=== PATIENT | female | born 1960 | race Caucasian/White ===

== ENCOUNTER 2016-09-20 10:04 | Observation (INO) ==
--- NOTE | 2016-09-20 10:31 | Emergency Department Note ---
Disposition Clinical Impression: Hyperglycemia Leukocytosis Qualifiers: Leukocytosis type: unspecified Qualified Code(s): D72.829 - Elevated white blood cell count, unspecified UTI (urinary tract infection) Qualifiers: Urinary tract infection type: site unspecified Hematuria presence: without hematuria Qualified Code(s): N39.0 - Urinary tract infection, site not specified Disposition: Admitted As Inpatient Condition: Fair Time of Disposition: 13:00 General Adult HPI - General Chief complaint: ED Extremity Problem,Nontraumatic Stated complaint: cellulitis Time Seen by Provider: 09/20/16 10:08 Source: patient, EMS Limitations: no limitations Nursing Notes Reviewed: Yes Vital Signs Reviewed: Yes - History of Present Illness HPI Narrative: 56-year-old female ordered obesity, insulin-dependent diabetes, with several days of emesis, nausea, and generalized weakness. Patient also states that she think she has cellulitis in her bilateral lower extremities. She was recently prescribed a cream for her legs for her cellulitis unsure what kind. No oral medicaitons. Patient with no known hx of DKA. Poorly controlled diabetesBSGs in the 300s-400s this last weak, also feels dehydrated. The patient also with crampy nonspecific abdominal pain /, diffuse. Denies hematuria, dysuria, hematemesis, hematochezia wt change or fever. Onset (ago): day(s) Location: abdomen Radiation: abdomen Pain Severity: moderate Pain Scale: 8 Quality: stabbing, aching Improves with: nothing Worsens with: nothing Associated symptoms: Reports: denies other symptoms. Denies: confusion, chest pain Treatments Prior to Arrival: none - Related Data Home Medications Medication Instructions Recorded Confirmed Carvedilol [Coreg] 12.5 mg PO BID 10/31/15 06/06/16 Cholecalciferol (Vitamin D3) 50,000 unit PO TU 10/31/15 06/06/16 [Vitamin D3] FLUoxetine HCl [Prozac] 40 mg PO DAILY 10/31/15 06/06/16 Furosemide [Lasix] 10 mg PO DAILY 10/31/15 06/06/16 Insulin ASPART [NovoLOG] 0 units SQ TIDWM MDD Sliding Scale 10/31/15 06/06/16 Insulin Glargine,Hum.rec.anlog 40 unit SQ QAM AND QHS #0 10/31/15 06/06/16 [Lantus Solostar] Lamotrigine [Lamictal] 75 mg PO BID 10/31/15 06/06/16 Losartan Potassium [Cozaar] 100 mg PO DAILY 10/31/15 06/06/16 Lovastatin [Altoprev] 40 mg PO DAILY 10/31/15 06/06/16 Omeprazole 20 mg PO DAILY 10/31/15 06/06/16 Triamterene/HCTZ 37.5/25mg 1 each PO DAILY #0 10/31/15 06/06/16 [Dyazide] Albuterol Sulfate [Proair Hfa] 2 puff IH Q4H PRN 06/06/16 06/06/16 Aspirin 81 mg PO DAILY 06/06/16 06/06/16 Duloxetine [Cymbalta] 30 mg PO DAILY 06/06/16 06/06/16 Gabapentin [Neurontin] 300 mg PO TID 06/06/16 06/06/16 Meclizine [Antivert] 12.5 - 25 mg PO DAILY PRN 06/06/16 06/06/16 Meloxicam [Mobic] 7.5 mg PO DAILY 06/06/16 06/06/16 Promethazine [Phenergan] 25 mg PO Q6H PRN 06/06/16 06/06/16 Previous Rx's Medication Instructions Recorded Ferrous Sulfate 325 mg PO DAILY@0800 #60 tablet 11/07/15 Bacitracin OINT [Ak-Tracin] 1 appl TP BID #1 tube 06/09/16 CefTRIAXone [Rocephin] 1,000 mg IVPB DAILY #10 vial 06/09/16 Clotrimazole 1% CRM [Lotrimin 1%] 1 appl TP BID #1 tube 06/09/16 OxyCODONE Immed Rel [Roxicodone 5 5 mg PO Q6H PRN #25 tablet 06/09/16 MG] Allergies Allergy/AdvReac Type Severity Reaction Status Date / Time Penicillins Allergy Hives Verified 09/20/16 12:06 All systems ED: reviewed and negative except as stated. Constitutional: Reports: as per HPI, chills, weakness. Denies: fever Cardiovascular: Denies: chest pain, palpitations Respiratory: Denies: cough, dyspnea Gastrointestinal: Reports: as per HPI, abdominal pain, nausea, vomiting. Denies : diarrhea, hematemesis, melena, hematochezia Genitourinary: Denies: urgency, dysuria Musculoskeletal: Denies: back pain, neck pain Neurological: Reports: as per HPI, weakness. Denies: headache Endocrine: Reports: as per HPI, fatigue, polydipsia, polyuria Past Medical History - Past Medical History Attestation: Yes The following information was validated with the patient. Source: patient Medical history: Reports: asthma, diabetes, hyperlipidemia, hypertension, renal disease Psychiatric history: Reports: anxiety - Social History Smoking Status: Current every day smoker Smokeless Tobacco Status: No Alcohol use: Reports: none Drug use: Reports: none Physical Exam Constitutional: apperas mildly uncomfortable, vital signs reviewed and wnl HEENT: NCAT, sclera anicteric, PERRLA bilaterally, normal external ears bilaterally, nasal septum nondeviated, average dentition, mucous membranes dry Neck: normal inspection, neck is supple, trachea midline Resp: normal chest inspection, CTA bilaterally, no resp distress CV: RRR, no m/g/r,+2 nonpitting edema bilateral lower extremity is GI: morbidly obese, diffuse mild ttp, Soft, BS present Back: normal inspection, no tenderness to palpation Neuro: A&O3, no gross motor or sensory deficits bilaterally MSK: normal inspection, bilateral UE and LE with normal ROM Psych: normal mood, normal affect Skin: edema bilateral lower extremities, edema with some skin breakdown nonpurulent drainage, serous drainage from her bilateral anterior tibia, no evidence of erythema - General Limitations: no limitations General appearance: alert, in no apparent distress Course Course Narrative: 56 female with weakness nausea and vomiting, on examination of her legs, there appears to be venous stasis dermatitis and no evidence of cellulitis, we will give blood work with cultures lactate, beta hydroxy generic acid, VBG given that she is at high risk for DKA, her blood sugar Accu-Chek was 406 Aleve or IV fluids and insulin, his - Reevaluation(s) Reevaluation #1: Admitted to Dr Arteaga, for hyperglycemia, UTI, started empirically on cefepime after looking at sensitivities in previous UTIs. Time: 12:58 Vital Signs Temperature 98.6 F 09/20/16 10:06 Pulse Rate 67 09/20/16 10:06 Respiratory Rate 20 09/20/16 10:06 Blood Pressure 139/68 09/20/16 10:06 O2 Sat by Pulse Oximetry 96 09/20/16 10:06 Temperature 98.6 F 09/20/16 10:06 Pulse Rate 65 09/20/16 11:43 Respiratory Rate 18 09/20/16 11:43 Blood Pressure 115/57 09/20/16 11:43 O2 Sat by Pulse Oximetry 97 09/20/16 11:43 Oxygen Delivery Oxygen Delivery Room Air Medical Decision Making - MDM Narrative Medical decision making narrative: 86-year-old female with hyperglycemia, UTI, generalized weakness, admitted to medicine service in stable condition, no evidence of SIRS criteria at this time she does not meet criteria for sepsis we will fluid rehydrate, started empirically on IV antibiotics cefepime. In stable condition at time of ED disposition - Medical Records Medical records reviewed: Yes I reviewed the patient's medical records. - Lab Data Lab results reviewed: Yes I reviewed the patient's lab results. Result diagrams: 09/20/16 10:32 09/20/16 10:32 Lab Results 09/20/16 09/20/16 09/20/16 Range/Units 10:18 10:32 10:32 WBC 13.3 H (4.3-11.1) K/mcL RBC 5.17 H (3.82-4.97) M/mcL Hgb 12.0 (11.5-15.4) g/dL Hct 38.1 (35.3-44.9) % MCV 73.7 L (83.0-100.0) fL MCH 23.2 L (28.0-33.3) pg MCHC 31.5 L (31.6-35.5) g/dL RDW 13.8 (11.5-14.5) % Plt Count 315 (140-400) K/mcL MPV 8.4 L (9.4-12.4) fL Immature Gran % 0.7 (0-4) % Seg Neutrophils % 66.6 % Lymphocytes % 21.7 % Monocytes % 7.2 % Eosinophils % 3.2 % Basophils % 0.6 % Neutrophils # 8.8 (1.6-8.9) K/mcL Lymphocytes # 2.9 (0.6-4.6) K/mcL Monocytes # 1.0 (0.0-1.3) K/mcL Eosinophils # 0.4 (0.0-0.6) K/mcL Basophils # 0.1 (0.0-0.2) K/mcL VBG pH (7.32-7.42) pH Units VBG pCO2 (41-51) mmHg VBG pO2 (25-40) mmHg VBG HCO3 (21-27) mEq/L Sodium 133 L (136-145) mEq/L Potassium 4.2 (3.5-4.5) mEq/L Chloride 98 (98-109) mEq/L Carbon Dioxide 23 (19-29) mEq/L BUN 18 (7-20) mg/dL Creatinine 1.42 H (0.57-1.11) mg/dL Est GFR ( Amer) 47 L (> 60) Est GFR (Non-Af Amer) 39 L (> 60) BUN/Creatinine Ratio 13 (6-26) Glucose 355 H (70-99) mg/dL POC Glucose 406 H* (58-89) Calculated Osmolality 292 (280-300) Lactic Acid (0.5-2.2) mmol/L Calcium 8.3 L (8.6-10.8) mg/dL Total Bilirubin 0.7 (0.2-1.2) mg/dL AST 13 (5-34) Units/L ALT 18 (0-55) Units/L Alkaline Phosphatase 107 (38-126) Units/L Troponin I (0-0.03) ng/mL Serum Total Protein 7.2 (6.0-8.3) g/dL Albumin 2.6 L (3.5-5.0) g/dL Globulin 4.6 H (2.4-3.5) g/dL Albumin/Globulin Ratio 0.6 L (1.1-2.2) Lipase (8-78) Units/L Beta-Hydroxybutyric Acd (0.02-0.27) mmol/L Urine Color (Yellow) Urine Clarity (Clear) Urine pH (5.0-8.0) pH Units Ur Specific [place] (1.010-1.025) Urine Protein (Neg-Trace) mg/dL Urine Glucose (UA) (Normal) mg/dL Urine Ketones (Negative) mg/dL Urine Blood (Negative) Urine Nitrite (Negative) Urine Bilirubin (Negative) Urine Urobilinogen (Normal) mg/dL Ur Leukocyte Esterase (Negative) Urine Microscopic RBC (0-3) per hpf Urine Microscopic WBC (0-3) per hpf Ur Squamous Epith Cells (None-Few) per lpf Urine Bacteria (None-Few) per hpf Hyaline Casts (None-Few) per lpf Ur Culture Indicated? (NO) 09/20/16 09/20/16 09/20/16 Range/Units 10:32 10:32 10:32 WBC (4.3-11.1) K/mcL RBC (3.82-4.97) M/mcL Hgb (11.5-15.4) g/dL Hct (35.3-44.9) % MCV (83.0-100.0) fL MCH (28.0-33.3) pg MCHC (31.6-35.5) g/dL RDW (11.5-14.5) % Plt Count (140-400) K/mcL MPV (9.4-12.4) fL Immature Gran % (0-4) % Seg Neutrophils % % Lymphocytes % % Monocytes % % Eosinophils % % Basophils % % Neutrophils # (1.6-8.9) K/mcL Lymphocytes # (0.6-4.6) K/mcL Monocytes # (0.0-1.3) K/mcL Eosinophils # (0.0-0.6) K/mcL Basophils # (0.0-0.2) K/mcL VBG pH 7.30 L (7.32-7.42) pH Units VBG pCO2 54 H (41-51) mmHg VBG pO2 26 (25-40) mmHg VBG HCO3 26.6 (21-27) mEq/L Sodium (136-145) mEq/L Potassium (3.5-4.5) mEq/L Chloride (98-109) mEq/L Carbon Dioxide (19-29) mEq/L BUN (7-20) mg/dL Creatinine (0.57-1.11) mg/dL Est GFR ( Amer) (> 60) Est GFR (Non-Af Amer) (> 60) BUN/Creatinine Ratio (6-26) Glucose (70-99) mg/dL POC Glucose (58-89) Calculated Osmolality (280-300) Lactic Acid 2.4 H (0.5-2.2) mmol/L Calcium (8.6-10.8) mg/dL Total Bilirubin (0.2-1.2) mg/dL AST (5-34) Units/L ALT (0-55) Units/L Alkaline Phosphatase (38-126) Units/L Troponin I 0.00 (0-0.03) ng/mL Serum Total Protein (6.0-8.3) g/dL Albumin (3.5-5.0) g/dL Globulin (2.4-3.5) g/dL Albumin/Globulin Ratio (1.1-2.2) Lipase (8-78) Units/L Beta-Hydroxybutyric Acd (0.02-0.27) mmol/L Urine Color (Yellow) Urine Clarity (Clear) Urine pH (5.0-8.0) pH Units Ur Specific [place] (1.010-1.025) Urine Protein (Neg-Trace) mg/dL Urine Glucose (UA) (Normal) mg/dL Urine Ketones (Negative) mg/dL Urine Blood (Negative) Urine Nitrite (Negative) Urine Bilirubin (Negative) Urine Urobilinogen (Normal) mg/dL Ur Leukocyte Esterase (Negative) Urine Microscopic RBC (0-3) per hpf Urine Microscopic WBC (0-3) per hpf Ur Squamous Epith Cells (None-Few) per lpf Urine Bacteria (None-Few) per hpf Hyaline Casts (None-Few) per lpf Ur Culture Indicated? (NO) 09/20/16 09/20/16 Range/Units 10:32 11:20 WBC (4.3-11.1) K/mcL RBC (3.82-4.97) M/mcL Hgb (11.5-15.4) g/dL Hct (35.3-44.9) % MCV (83.0-100.0) fL MCH (28.0-33.3) pg MCHC (31.6-35.5) g/dL RDW (11.5-14.5) % Plt Count (140-400) K/mcL MPV (9.4-12.4) fL Immature Gran % (0-4) % Seg Neutrophils % % Lymphocytes % % Monocytes % % Eosinophils % % Basophils % % Neutrophils # (1.6-8.9) K/mcL Lymphocytes # (0.6-4.6) K/mcL Monocytes # (0.0-1.3) K/mcL Eosinophils # (0.0-0.6) K/mcL Basophils # (0.0-0.2) K/mcL VBG pH (7.32-7.42) pH Units VBG pCO2 (41-51) mmHg VBG pO2 (25-40) mmHg VBG HCO3 (21-27) mEq/L Sodium (136-145) mEq/L Potassium (3.5-4.5) mEq/L Chloride (98-109) mEq/L Carbon Dioxide (19-29) mEq/L BUN (7-20) mg/dL Creatinine (0.57-1.11) mg/dL Est GFR ( Amer) (> 60) Est GFR (Non-Af Amer) (> 60) BUN/Creatinine Ratio (6-26) Glucose (70-99) mg/dL POC Glucose (58-89) Calculated Osmolality (280-300) Lactic Acid (0.5-2.2) mmol/L Calcium (8.6-10.8) mg/dL Total Bilirubin (0.2-1.2) mg/dL AST (5-34) Units/L ALT (0-55) Units/L Alkaline Phosphatase (38-126) Units/L Troponin I (0-0.03) ng/mL Serum Total Protein (6.0-8.3) g/dL Albumin (3.5-5.0) g/dL Globulin (2.4-3.5) g/dL Albumin/Globulin Ratio (1.1-2.2) Lipase 23 (8-78) Units/L Beta-Hydroxybutyric Acd 0.17 (0.02-0.27) mmol/L Urine Color Yellow (Yellow) Urine Clarity Turbid A (Clear) Urine pH 6.0 (5.0-8.0) pH Units Ur Specific [place] 1.013 (1.010-1.025) Urine Protein Trace (Neg-Trace) mg/dL Urine Glucose (UA) 100 H (Normal) mg/dL Urine Ketones Negative (Negative) mg/dL Urine Blood Small H (Negative) Urine Nitrite Positive A (Negative) Urine Bilirubin Negative (Negative) Urine Urobilinogen Normal (Normal) mg/dL Ur Leukocyte Esterase Large H (Negative) Urine Microscopic RBC 3-5 H (0-3) per hpf Urine Microscopic WBC TNTC H (0-3) per hpf Ur Squamous Epith Cells Many H (None-Few) per lpf Urine Bacteria Many H (None-Few) per hpf Hyaline Casts None Seen (None-Few) per lpf Ur Culture Indicated? YES A (NO) - Radiology Data Radiology results reviewed: Yes I reviewed the patient's radiology results. Chest X-Ray 09/20/16 10:13 IMPRESSION: No acute abnormality D/ / Breezy Trotter MD / Breezy Trotter MD Interpreting Provider: Breezy Trotter MD - EKG Data EKG #1 EKG attestation: Yes I reviewed and interpreted this EKG. EKG shows normal: sinus rhythm Rate: normal (67 bpm AL 173 QRS 90 QTc 447) Rhythm: NSR [place]/QRS: normal When compared to previous EKG there are: no significant changes (Normal sinus rhythm artifact appears to be due to patient movement similar to previous EKG ) Interpretation: no acute changes, unchanged when compared to prior tracing (date )
[2016-09-20] MEDS ORDERED: Insulin Human Regular 10 UNIT in 0.9 % Sodium Chloride 10 ML IV ONE (10:32)
[2016-09-20 10:41] LABS: Basophils # 0.1 K/mcL (0.0-0.2); Basophils % 0.6 %; Eosinophils # 0.4 K/mcL (0.0-0.6); Eosinophils % 3.2 %; Hematocrit 38.1 % (35.3-44.9); Immature Granulocytes % 0.7 % (0-4); Lymphocytes # 2.9 K/mcL (0.6-4.6); Lymphocytes % 21.7 %; Mean Corpuscular HGB Conc 31.5 g/dL (31.6-35.5); Mean Corpuscular Hemoglobin 23.2 pg (28.0-33.3); Mean Corpuscular Volume 73.7 fL (83.0-100.0); Mean Platelet Volume 8.4 fL (9.4-12.4); Monocytes % 7.2 %; Neutrophils # 8.8 K/mcL (1.6-8.9); Platelet Count 315 K/mcL (140-400); Red Blood Count 5.17 M/mcL (3.82-4.97); Red Cell Distribution Width 13.8 % (11.5-14.5); Segmented Neutrophils % 66.6 %
[2016-09-20 10:42] LABS: VBG HCO3 26.6 mEq/L (21-27); VBG PH 7.3 pH Units (7.32-7.42)
[2016-09-20] MEDS: 0.9 % Sodium Chloride 1,000 ML IVC SCH ×6 (10:44→11:42)
[2016-09-20 10:52] LABS: Beta-Hydroxybutyric Acid 0.17 mmol/L (0.02-0.27)
[2016-09-20 10:55] LABS: Albumin 2.6 g/dL (3.5-5.0); Albumin/Globulin Ratio 0.6 (1.1-2.2); Bilirubin,Total 0.7 mg/dL (0.2-1.2); Calcium 8.3 mg/dL (8.6-10.8); Globulin 4.6 g/dL (2.4-3.5); Potassium 4.2 mEq/L (3.5-4.5); Total Protein 7.2 g/dL (6.0-8.3)
--- NOTE | 2016-09-20 11:00 | Emergency Department Note ---
START Narrative - START START: I examined this patient and my medical decision-making was reviewed with the [employer] OFFBEARER/PA/Advanced Practice Nurse/Resident Physician. I agree with the documented findings, disposition and treatment plan as described except to the extent set forth below. ED attending note: Patient seen with emergency medicine resident Dr. Khalil. Please see a copy of his note for details of the H&P, evaluation, management and disposition of this patient. We independently had [id number] contact with the patient Briefly: A 56-year-old female diabetic obese treated with skin cream for "cellulitis" for several days. Social respiratory control. Feeling more tired. Patient's Accu-Cheks between 305 100. Physical examination shows peripheral edema but no signs of acute cellulitis. Labs and imaging a pending. Patient stable. Disposition pending.
[2016-09-20] MEDS ORDERED: Nystatin POWDER 30 GM BOTTLE TP STA (11:05)
[2016-09-20 11:35] LABS: Bilirubin,Urine Negative (Negative); Blood,Urine Small (Negative); Clarity,Urine Turbid (Clear); Color,Urine Yellow (Yellow); Glucose,Urine (UA) 100 mg/dL (Normal); Ketones,Urine Negative (Negative); Leukocyte Esterase,Urine Large (Negative); Nitrite,Urine Positive (Negative); Protein,Urine Trace mg/dL (Neg-Trace); Specific Gravity,Urine 1.013 (1.010-1.025); Urobilinogen,Urine Normal (Normal)
[2016-09-20] MEDS ORDERED: Fluconazole 100 MG TABLET PO ONE (11:35)
[2016-09-20 11:38] LABS: Bacteria,Urine Many per hpf (None-Few); Hyaline Casts,Urine None Seen per lpf (None-Few); Squamous Epithelial Cell,Urine Many per lpf (None-Few); WBC,Urine TNTC per hpf (0-3)
[2016-09-20] MEDS ORDERED: Cefepime HCl 2,000 MG in D5% in Water (Mini-Bag+) 100 ML IVPB ONE (12:38)
[2016-09-20] MEDS ORDERED: *HR* Dextrose 50 % in Water (Syg) 50 ML SYRINGE IVP PRN (17:51)
[2016-09-20] MEDS ORDERED: D5% in Water 1,000 ML IV PRN (17:51)
[2016-09-20] MEDS ORDERED: Dextrose Gel 15 GM PO PRN ×2 (17:51)
[2016-09-20] MEDS ORDERED: Insulin LISPRO 300 UNITS/3 ML VIAL SQ SCH ×2 (18:00)
[2016-09-20] MEDS ORDERED: hydrOXYzine pamoate 25 MG CAPSULE PO PRN (18:38)
[2016-09-20] MEDS ORDERED: 0.9 % Sodium Chloride 1,000 ML IVC SCH (18:45)
[2016-09-20] MEDS ORDERED: Naloxone 0.4 MG/ML INJ IVP PRN (18:46)
[2016-09-20 19:11] LABS: Calcium 7.8 mg/dL (8.6-10.8); Potassium 3.6 mEq/L (3.5-4.5)
--- NOTE | 2016-09-20 19:26 | Internal Med History&Physical ---
Date of Encounter: 09/20/16 Time of Encounter: 19:06 Assessment and Plan (1) UTI (urinary tract infection) Current visit: Yes Status: Acute Though patient denies any dysuria, UA was positive for UTI. Previous urine cultures showed sensitivity to Cefepime. Cefepime 2g IVPB BID Await culture results Qualifiers: Urinary tract infection type: site unspecified Hematuria presence: without hematuria Qualified Code(s): N39.0 - Urinary tract infection, site not specified (2) Candidal dermatitis Current visit: No Status: Acute Patient with significant erythema and tenderness under panus and in groin, consistent with fungal infection. Fluconazole 100mg IVPB daily topical clotrimizole BID consult wound team (3) Hyperglycemia Current visit: Yes Status: Acute Patient reporting blood sugars have been running high at home in the 300-400s. On presentation here, serum glucose 355. Basal dose of insulin 30u levemir HS Check blood sugars Q4hr Sliding scale correction dose Q4hr (4) Chronic kidney disease, stage 3 Current visit: No Status: Chronic Patient's kidney function is near baseline with BUN/Cr 18/1.42. Pushing fluids with 0.9NS at 100mL/hr Recheck chemistry in the morning. (5) Diabetes mellitus Current visit: No Status: Chronic Not well controlled as evidenced by Hgb A1c of 8.3% in May. Home dose of insulin: Basal 48u HS, 18u short acting TIDwM She is hyperglycemic. Will check blood sugars Q4hr and give sliding scale correction Q4hr. Will give basal dose of 30u this evening. May convert to home dose when blood sugars stabilize. hypoglycemic protocol. 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 Brothers is a 56 year old female with hypertension, hyperlipidemia, type 2 diabetes, chronic kidney disease, asthma presented to the emergency department today with complaints of her lower extremities hurting. She said she was diagnosed with fungal infection of her legs and she is concerned about cellulitis. She has chronic bilateral lower extremity edema. She also reports she has been having trouble keeping her blood sugars under control, they have been running in the 300 400 range. She denies any fever, chills, sweats, dysuria. She denies any chest pain, palpitation, shortness of breath. Evaluation in the emergency department was significant for elevated white blood cell count of 13.3, UA which was positive for UTI, elevated lactic acid of 2.4. Troponin was negative at 0.0, chest x-ray showed no acute abnormality. On exam, patient is morbidly obese, alert and oriented, in no acute distress. Heart has regular rate and rhythm with systolic murmur. Clear bilaterally to auscultation. Her bilateral lower extremities were swollen, and pink, but not acutely tender, did not appear to be cellulitis. The folds under her panus and in her groin are erythmatous and tender consistent with fungal infection. Past Med Surg Social Fam HX - Past Medical History Medical history: asthma, diabetes, hyperlipidemia, hypertension, renal disease Psychiatric history: anxiety - Past Surgical History Surgical History: , cholecystectomy, hysterectomy - Social History Smoking Status: Current every day smoker (1/2 PPD) Smokeless Tobacco Status: No Alcohol use: none Drug use: none - Family History Father Living Status: Still Living Hx Family Cardiac Disorders: Yes (dad had [place]) Hx Family Respiratory Disorders: No Hx Family Cancer: No Hx Family GI Disorders: No Hx Family Endocrine Disorder: No Hx Family Neuromuscular Disorders: No Hx Family Neurologic Disorders: No Hx Family HEENT Disorders: No Hx Family Autoimmune Disorders: No Mother Living Status: Still Living Internal Medicine - H&P: Meds Carvedilol [Coreg] 12.5 mg PO BID 10/31/15 [History] Cholecalciferol (Vitamin D3) [Vitamin D3] 50,000 unit PO TU 10/31/15 [History] FLUoxetine HCl [Prozac] 80 mg PO DAILY 10/31/15 [History] Furosemide [Lasix] 10 mg PO DAILY 10/31/15 [History] Insulin ASPART [NovoLOG] 18 units SQ TIDWM MDD Sliding Scale 10/31/15 [History] Insulin Glargine,Hum.rec.anlog [Lantus Solostar] 48 unit SQ HS #0 10/31/15 [ History] Lovastatin [Altoprev] 40 mg PO DAILY 10/31/15 [History] Omeprazole 20 mg PO DAILY 10/31/15 [History] Triamterene/HCTZ 37.5/25mg [Dyazide] 1 tab PO DAILY #0 10/31/15 [History] Albuterol Sulfate [Proair Hfa] 2 puff IH Q4H PRN 06/06/16 [History] Aspirin 81 mg PO DAILY 06/06/16 [History] Promethazine [Phenergan] 25 mg PO Q6H PRN 06/06/16 [History] Ferrous Sulfate 325 mg PO DAILY 09/20/16 [History] Gabapentin [Gabapentin] 800 mg PO TID 09/20/16 [History] HydrOXYzine Pamoate [Vistaril] 50 - 100 mg PO Q6H PRN 09/20/16 [History] Lamotrigine [Lamictal] 100 mg PO DAILY 09/20/16 [History] Oxybutynin Chloride [Ditropan Xl] 10 mg PO DAILY 09/20/16 [History] TraZODone 50 mg PO HS 09/20/16 [History] Allergies Penicillins Allergy (Verified 09/20/16 12:06) Hives All Systems PM: A 10-system review of systems was performed and is negative for pertinent findings except as documented above in the HPI. - Constitutional Constitutional: no chills, no fever(s), no night sweats - EENT Eyes: no change in vision, no discharge, no pain, no photophobia Ears: no ear discharge, no ear pain, no tinnitus Nose, mouth and throat: no dysphagia, no nasal discharge, no neck pain, no sore throat - Cardiovascular Cardiovascular ROS IM: no chest pain, no diaphoresis, no dyspnea, no lightheadedness, no palpitations, no syncope - Respiratory Respiratory: no cough, no dyspnea, no wheezing, no excessive phlegm production - Gastrointestinal Gastrointestinal: no abdominal pain, no diarrhea, no hematemesis, no hematochezia, no melena, no nausea, no vomiting - Genitourinary Genitourinary: no change in urinary stream, no dysuria, no flank pain, no hematuria - Musculoskeletal Musculoskeletal ROS IM: no numbness, no tingling - Integumentary Integumentary IM: erythema (under panus and in groin), rash, no unusual bruising - Neurological Neurological ROS: no confusion, no convulsions, no focal weakness, no numbness, no tingling, no tremor(s) - Hematologic/Lymphatic Hematologic/Lymphatic: no easy bruising - Constitutional Vitals: Temp Pulse Resp BP Pulse Ox 97.6 F 60 18 109/52 98 09/20/16 15:34 09/20/16 15:34 09/20/16 15:34 09/20/16 15:34 09/20/16 15:34 General appearance: Present: A&O X 3, morbidly obese, pleasant - Head Head exam: Present: atraumatic, normocephalic - Eye Eye exam: Present: PERRL, conjuntiva pink, sclera anicteric Pupils: Present: PERRL - Neck Neck exam general surgery: Present: supple, trachea midline. Absent: lymphadenopathy - Respiratory Respiratory exam: Present: CTAB. Absent: accessory muscle use, rales, rhonchi, wheezes - Cardiovascular Cardiovascular exam: Present: RRR, +S1, +S2. Absent: diastolic murmur, gallop, rubs, systolic murmur - GI/Abdominal GI/Abdominal exam: Present: normal bowel sounds, soft, no peritoneal signs. Absent: distended, tenderness - Extremities Exam Extremities exam: Present: pedal edema, warm, radial pulses palpable and symetrical. Absent: calf tenderness, cyanotic - Neurological Exam Neurological exam: Present: CN II-XII intact, oriented X3, no focal deficits. Absent: facial droop, speech deficit - Skin Skin exam: Present: dry, erythema (under panus and in right groin), intact, rash Internal Med - H&P Results - Labs CBC & Chem 7: 09/20/16 10:32 09/20/16 18:52 Labs: All Lab Results (24 Hours) 09/20/16 09/20/16 09/20/16 Range/Units 10:18 10:32 10:32 WBC 13.3 H (4.3-11.1) K/mcL RBC 5.17 H (3.82-4.97) M/mcL Hgb 12.0 (11.5-15.4) g/dL Hct 38.1 (35.3-44.9) % MCV 73.7 L (83.0-100.0) fL MCH 23.2 L (28.0-33.3) pg MCHC 31.5 L (31.6-35.5) g/dL RDW 13.8 (11.5-14.5) % Plt Count 315 (140-400) K/mcL MPV 8.4 L (9.4-12.4) fL Immature Gran % 0.7 (0-4) % Seg Neutrophils % 66.6 % Lymphocytes % 21.7 % Monocytes % 7.2 % Eosinophils % 3.2 % Basophils % 0.6 % Neutrophils # 8.8 (1.6-8.9) K/mcL Lymphocytes # 2.9 (0.6-4.6) K/mcL Monocytes # 1.0 (0.0-1.3) K/mcL Eosinophils # 0.4 (0.0-0.6) K/mcL Basophils # 0.1 (0.0-0.2) K/mcL VBG pH (7.32-7.42) pH Units VBG pCO2 (41-51) mmHg VBG pO2 (25-40) mmHg VBG HCO3 (21-27) mEq/L Sodium 133 L (136-145) mEq/L Potassium 4.2 (3.5-4.5) mEq/L Chloride 98 (98-109) mEq/L Carbon Dioxide 23 (19-29) mEq/L BUN 18 (7-20) mg/dL Creatinine 1.42 H (0.57-1.11) mg/dL Est GFR ( Amer) 47 L (> 60) Est GFR (Non-Af Amer) 39 L (> 60) BUN/Creatinine Ratio 13 (6-26) Glucose 355 H (70-99) mg/dL POC Glucose 406 H* (58-89) Calculated Osmolality 292 (280-300) Lactic Acid (0.5-2.2) mmol/L Calcium 8.3 L (8.6-10.8) mg/dL Total Bilirubin 0.7 (0.2-1.2) mg/dL AST 13 (5-34) Units/L ALT 18 (0-55) Units/L Alkaline Phosphatase 107 (38-126) Units/L Troponin I (0-0.03) ng/mL Serum Total Protein 7.2 (6.0-8.3) g/dL Albumin 2.6 L (3.5-5.0) g/dL Globulin 4.6 H (2.4-3.5) g/dL Albumin/Globulin Ratio 0.6 L (1.1-2.2) Lipase (8-78) Units/L Beta-Hydroxybutyric Acd (0.02-0.27) mmol/L Urine Color (Yellow) Urine Clarity (Clear) Urine pH (5.0-8.0) pH Units Ur Specific [place] (1.010-1.025) Urine Protein (Neg-Trace) mg/dL Urine Glucose (UA) (Normal) mg/dL Urine Ketones (Negative) mg/dL Urine Blood (Negative) Urine Nitrite (Negative) Urine Bilirubin (Negative) Urine Urobilinogen (Normal) mg/dL Ur Leukocyte Esterase (Negative) Urine Microscopic RBC (0-3) per hpf Urine Microscopic WBC (0-3) per hpf Ur Squamous Epith Cells (None-Few) per lpf Urine Bacteria (None-Few) per hpf Hyaline Casts (None-Few) per lpf Ur Culture Indicated? (NO) 09/20/16 09/20/16 09/20/16 Range/Units 10:32 10:32 10:32 WBC (4.3-11.1) K/mcL RBC (3.82-4.97) M/mcL Hgb (11.5-15.4) g/dL Hct (35.3-44.9) % MCV (83.0-100.0) fL MCH (28.0-33.3) pg MCHC (31.6-35.5) g/dL RDW (11.5-14.5) % Plt Count (140-400) K/mcL MPV (9.4-12.4) fL Immature Gran % (0-4) % Seg Neutrophils % % Lymphocytes % % Monocytes % % Eosinophils % % Basophils % % Neutrophils # (1.6-8.9) K/mcL Lymphocytes # (0.6-4.6) K/mcL Monocytes # (0.0-1.3) K/mcL Eosinophils # (0.0-0.6) K/mcL Basophils # (0.0-0.2) K/mcL VBG pH 7.30 L (7.32-7.42) pH Units VBG pCO2 54 H (41-51) mmHg VBG pO2 26 (25-40) mmHg VBG HCO3 26.6 (21-27) mEq/L Sodium (136-145) mEq/L Potassium (3.5-4.5) mEq/L Chloride (98-109) mEq/L Carbon Dioxide (19-29) mEq/L BUN (7-20) mg/dL Creatinine (0.57-1.11) mg/dL Est GFR ( Amer) (> 60) Est GFR (Non-Af Amer) (> 60) BUN/Creatinine Ratio (6-26) Glucose (70-99) mg/dL POC Glucose (58-89) Calculated Osmolality (280-300) Lactic Acid 2.4 H (0.5-2.2) mmol/L Calcium (8.6-10.8) mg/dL Total Bilirubin (0.2-1.2) mg/dL AST (5-34) Units/L ALT (0-55) Units/L Alkaline Phosphatase (38-126) Units/L Troponin I 0.00 (0-0.03) ng/mL Serum Total Protein (6.0-8.3) g/dL Albumin (3.5-5.0) g/dL Globulin (2.4-3.5) g/dL Albumin/Globulin Ratio (1.1-2.2) Lipase (8-78) Units/L Beta-Hydroxybutyric Acd (0.02-0.27) mmol/L Urine Color (Yellow) Urine Clarity (Clear) Urine pH (5.0-8.0) pH Units Ur Specific [place] (1.010-1.025) Urine Protein (Neg-Trace) mg/dL Urine Glucose (UA) (Normal) mg/dL Urine Ketones (Negative) mg/dL Urine Blood (Negative) Urine Nitrite (Negative) Urine Bilirubin (Negative) Urine Urobilinogen (Normal) mg/dL Ur Leukocyte Esterase (Negative) Urine Microscopic RBC (0-3) per hpf Urine Microscopic WBC (0-3) per hpf Ur Squamous Epith Cells (None-Few) per lpf Urine Bacteria (None-Few) per hpf Hyaline Casts (None-Few) per lpf Ur Culture Indicated? (NO) 09/20/16 09/20/16 09/20/16 Range/Units 10:32 11:20 14:16 WBC (4.3-11.1) K/mcL RBC (3.82-4.97) M/mcL Hgb (11.5-15.4) g/dL Hct (35.3-44.9) % MCV (83.0-100.0) fL MCH (28.0-33.3) pg MCHC (31.6-35.5) g/dL RDW (11.5-14.5) % Plt Count (140-400) K/mcL MPV (9.4-12.4) fL Immature Gran % (0-4) % Seg Neutrophils % % Lymphocytes % % Monocytes % % Eosinophils % % Basophils % % Neutrophils # (1.6-8.9) K/mcL Lymphocytes # (0.6-4.6) K/mcL Monocytes # (0.0-1.3) K/mcL Eosinophils # (0.0-0.6) K/mcL Basophils # (0.0-0.2) K/mcL VBG pH (7.32-7.42) pH Units VBG pCO2 (41-51) mmHg VBG pO2 (25-40) mmHg VBG HCO3 (21-27) mEq/L Sodium (136-145) mEq/L Potassium (3.5-4.5) mEq/L Chloride (98-109) mEq/L Carbon Dioxide (19-29) mEq/L BUN (7-20) mg/dL Creatinine (0.57-1.11) mg/dL Est GFR ( Amer) (> 60) Est GFR (Non-Af Amer) (> 60) BUN/Creatinine Ratio (6-26) Glucose (70-99) mg/dL POC Glucose 238 H (58-89) Calculated Osmolality (280-300) Lactic Acid (0.5-2.2) mmol/L Calcium (8.6-10.8) mg/dL Total Bilirubin (0.2-1.2) mg/dL AST (5-34) Units/L ALT (0-55) Units/L Alkaline Phosphatase (38-126) Units/L Troponin I (0-0.03) ng/mL Serum Total Protein (6.0-8.3) g/dL Albumin (3.5-5.0) g/dL Globulin (2.4-3.5) g/dL Albumin/Globulin Ratio (1.1-2.2) Lipase 23 (8-78) Units/L Beta-Hydroxybutyric Acd 0.17 (0.02-0.27) mmol/L Urine Color Yellow (Yellow) Urine Clarity Turbid A (Clear) Urine pH 6.0 (5.0-8.0) pH Units Ur Specific [place] 1.013 (1.010-1.025) Urine Protein Trace (Neg-Trace) mg/dL Urine Glucose (UA) 100 H (Normal) mg/dL Urine Ketones Negative (Negative) mg/dL Urine Blood Small H (Negative) Urine Nitrite Positive A (Negative) Urine Bilirubin Negative (Negative) Urine Urobilinogen Normal (Normal) mg/dL Ur Leukocyte Esterase Large H (Negative) Urine Microscopic RBC 3-5 H (0-3) per hpf Urine Microscopic WBC TNTC H (0-3) per hpf Ur Squamous Epith Cells Many H (None-Few) per lpf Urine Bacteria Many H (None-Few) per hpf Hyaline Casts None Seen (None-Few) per lpf Ur Culture Indicated? YES A (NO) 09/20/16 09/20/16 09/20/16 Range/Units 15:38 16:52 18:52 WBC (4.3-11.1) K/mcL RBC (3.82-4.97) M/mcL Hgb (11.5-15.4) g/dL Hct (35.3-44.9) % MCV (83.0-100.0) fL MCH (28.0-33.3) pg MCHC (31.6-35.5) g/dL RDW (11.5-14.5) % Plt Count (140-400) K/mcL MPV (9.4-12.4) fL Immature Gran % (0-4) % Seg Neutrophils % % Lymphocytes % % Monocytes % % Eosinophils % % Basophils % % Neutrophils # (1.6-8.9) K/mcL Lymphocytes # (0.6-4.6) K/mcL Monocytes # (0.0-1.3) K/mcL Eosinophils # (0.0-0.6) K/mcL Basophils # (0.0-0.2) K/mcL VBG pH (7.32-7.42) pH Units VBG pCO2 (41-51) mmHg VBG pO2 (25-40) mmHg VBG HCO3 (21-27) mEq/L Sodium 136 (136-145) mEq/L Potassium 3.6 (3.5-4.5) mEq/L Chloride 102 (98-109) mEq/L Carbon Dioxide 22 (19-29) mEq/L BUN 18 (7-20) mg/dL Creatinine 1.45 H (0.57-1.11) mg/dL Est GFR ( Amer) 46 L (> 60) Est GFR (Non-Af Amer) 38 L (> 60) BUN/Creatinine Ratio 12 (6-26) Glucose 241 H (70-99) mg/dL POC Glucose 208 H (58-89) Calculated Osmolality 292 (280-300) Lactic Acid 1.7 (0.5-2.2) mmol/L Calcium 7.8 L (8.6-10.8) mg/dL Total Bilirubin (0.2-1.2) mg/dL AST (5-34) Units/L ALT (0-55) Units/L Alkaline Phosphatase (38-126) Units/L Troponin I (0-0.03) ng/mL Serum Total Protein (6.0-8.3) g/dL Albumin (3.5-5.0) g/dL Globulin (2.4-3.5) g/dL Albumin/Globulin Ratio (1.1-2.2) Lipase (8-78) Units/L Beta-Hydroxybutyric Acd (0.02-0.27) mmol/L Urine Color (Yellow) Urine Clarity (Clear) Urine pH (5.0-8.0) pH Units Ur Specific [place] (1.010-1.025) Urine Protein (Neg-Trace) mg/dL Urine Glucose (UA) (Normal) mg/dL Urine Ketones (Negative) mg/dL Urine Blood (Negative) Urine Nitrite (Negative) Urine Bilirubin (Negative) Urine Urobilinogen (Normal) mg/dL Ur Leukocyte Esterase (Negative) Urine Microscopic RBC (0-3) per hpf Urine Microscopic WBC (0-3) per hpf Ur Squamous Epith Cells (None-Few) per lpf Urine Bacteria (None-Few) per hpf Hyaline Casts (None-Few) per lpf Ur Culture Indicated? (NO) - Diagnostic Studies Chest x-ray Additional comments: Chest X-Ray 09/20/16 10:13 IMPRESSION: No acute abnormality D/ / Breezy Trotter MD / Breezy Trotter MD Interpreting Provider: Breezy Trotter MD
[2016-09-20] MEDS ORDERED: Insulin DETEMIR 100 UNIT/ML X5UNITS SQ SCH (21:00)
[2016-09-20] MEDS ORDERED: Gabapentin 400 MG CAPSULE PO SCH (21:00)
[2016-09-20] MEDS: Clotrimazole 1% CRM 15 GM TUBE TP SCH (22:43)
[2016-09-20] MEDS: traZODone 50 MG TABLET PO SCH (23:14)
[2016-09-20] MEDS: Gabapentin 300 MG CAPSULE PO SCH (23:14)
--- NOTE | 2016-09-20 23:49 | Event Note ---
Date of Encounter: 09/20/16 Time of Encounter: 23:45 Patient seen and examined with nurse practitioner. Agree with assessment and plan. Patient presents with weakness nausea dry heaving. She is found to have a UTI. According to prior cultures cefepime will be given. She will be hydrated. Fluid bolus given in the emergency room. She has extensive intertriggo in her abdominal folds and fungal infection and I will give her topical as well as systemic antifungal for that. Patient is nauseous has some worsening over kidney functions I will decrease her insulin dose to 30 in its long-acting insulin in addition to sliding scale insulin every 4 hours. Physical therapy occupational therapy and social studies teacher to see the patient
[2016-09-21] MEDS: Insulin LISPRO 300 UNITS/3 ML VIAL SQ SCH ×8 (00:01→21:42)
[2016-09-21] MEDS: Insulin DETEMIR 100 UNIT/ML X5UNITS SQ SCH ×2 (00:35→22:26)
[2016-09-21] MEDS: Cefepime HCl 2,000 MG in D5% in Water (Mini-Bag+) 100 ML IVPB SCH ×2 (01:09→14:43)
[2016-09-21 06:21] LABS: Basophils # 0.1 K/mcL (0.0-0.2); Basophils % 0.6 %; Eosinophils # 0.6 K/mcL (0.0-0.6); Eosinophils % 5.9 %; Hematocrit 33.8 % (35.3-44.9); Hemoglobin 10.8 g/dL (11.5-15.4); Immature Granulocytes % 0.7 % (0-4); Lymphocytes # 3.1 K/mcL (0.6-4.6); Lymphocytes % 28.8 %; Mean Corpuscular Hemoglobin 23.7 pg (28.0-33.3); Mean Corpuscular Volume 74.1 fL (83.0-100.0); Monocytes # 0.8 K/mcL (0.0-1.3); Monocytes % 7.1 %; Neutrophils # 6.2 K/mcL (1.6-8.9); Platelet Count 288 K/mcL (140-400); Red Blood Count 4.56 M/mcL (3.82-4.97); Red Cell Distribution Width 14.1 % (11.5-14.5); Segmented Neutrophils % 56.9 %
[2016-09-21 06:34] LABS: Calcium 7.8 mg/dL (8.6-10.8); Potassium 3.7 mEq/L (3.5-4.5)
[2016-09-21] MEDS: *HR* Heparin 5,000 UNIT/ML VIAL SQ SCH ×3 (08:15→22:27)
--- NOTE | 2016-09-21 08:43 | Internal Med Progress Note ---
Date of Encounter: 09/21/16 Time of Encounter: 08:41 - Assessment and plan (1) Cellulitis of groin, right Current Visit: Yes Status: Acute Assessment and plan: Patient has history of abdominal wall cellulitis Recurrency likely secondary to poor hygiene Given severity, will treat with Vancomycin, Cefepime, and Fluconazole Daily wound care Follow up ID consult Pharmacy to dose Vanco and monitor trough Oxycodone prn pain (2) UTI (urinary tract infection) Current Visit: No Status: Acute Assessment and plan: Prior history of UTI with E.coli susceptible to Cefepime Will continue at this time Follow up urine cultures Qualifiers: Urinary tract infection type: acute cystitis Hematuria presence: without hematuria Qualified Code(s): N30.00 - Acute cystitis without hematuria (3) Hypertension Current Visit: Yes Status: Acute Assessment and plan: BP within acceptable range continue home medications Qualifiers: Hypertension type: essential hypertension Qualified Code(s): I10 - Essential (primary) hypertension (4) Morbid obesity with BMI of 40.0-44.9, adult Current Visit: Yes Status: Chronic (5) DVT prophylaxis Current Visit: Yes Status: Acute Assessment and plan: Heparin SQ (6) Anemia Current Visit: No Status: Chronic Assessment and plan: History of iron deficiency anemia Will continue ferrous sulfate H&H low but acceptable no acute bleeding reported at this time will continue to monitor transfuse as needed Qualifiers: Anemia type: iron deficiency Iron deficiency anemia type: unspecified iron deficiency Qualified Code(s): D50.9 - Iron deficiency anemia, unspecified (7) Chronic kidney disease, stage 3 Current Visit: No Status: Chronic Assessment and plan: Renal function improved from previous day Will continue to closely monitor renally dose antibiotics (8) Diabetes mellitus Current Visit: No Status: Chronic Assessment and plan: Hyperglycemia noted restarted home dose of insulin therapy unclear of patient's compliance with home medications will continue Levemir and humalog continue sliding scale insulin algorithm monitor fingerstick and blood glucose Qualifiers: Diabetes mellitus type: type 2 Diabetes mellitus complication status: with kidney complications Diabetes mellitus complication detail: with chronic kidney disease 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 Resting in bed and reports of feeling well at this time. Noted to have severe erythema and fungal rash on the bilateral abdominal folds extending to the bilateral groin. Reports of pain to touch. States she has history of recurrent infections to this area and has been treated for it in the past. - Constitutional Vitals: Temp Pulse Resp BP Pulse Ox 98.4 F 59 16 133/70 97 09/21/16 07:28 09/21/16 07:28 09/21/16 07:28 09/21/16 07:28 09/21/16 07:28 General appearance: Present: A&O X 3, morbidly obese, pleasant, no acute distress - Head Head exam: Present: atraumatic, normocephalic - Eye Eye exam: Present: conjuntiva pink, sclera anicteric - Respiratory Respiratory exam: Present: CTAB. Absent: respiratory distress, wheezes - Cardiovascular Cardiovascular exam: Present: RRR, +S1, +S2. Absent: diastolic murmur, gallop, rubs, systolic murmur - GI/Abdominal GI/Abdominal exam: Present: distended (obese, abd pannus), normal bowel sounds, soft, tenderness (abd pannus, severe erythema noted on bilateral abd folds with fungal rash extending to the bilateral groin (worst on right)). Absent: guarding - Extremities Exam Extremities exam: Present: pedal edema, warm, radial pulses palpable and symetrical. Absent: calf tenderness - Neurological Exam Neurological exam: Present: alert, oriented X3 - Psychiatric Psychiatric exam: Present: normal affect, normal mood Internal Medicine: Result - Labs CBC & Chem 7: 09/21/16 05:47 09/21/16 05:47 Labs: Short CBC 09/21/16 Range/Units 05:47 WBC 10.9 (4.3-11.1) K/mcL Hgb 10.8 L (11.5-15.4) g/dL Hct 33.8 L (35.3-44.9) % Plt Count 288 (140-400) K/mcL Neutrophils # 6.2 (1.6-8.9) K/mcL BMP 09/20/16 09/21/16 18:52 05:47 Sodium 136 136 Potassium 3.6 3.7 Chloride 102 105 Carbon Dioxide 22 22 BUN 18 19 Creatinine 1.45 H 1.30 H Glucose 241 H 239 H Calcium 7.8 L 7.8 L Consult Discharge Plan - Plan Referrals: Kavitha Yu DO [Primary Care Provider] -
[2016-09-21] MEDS ORDERED: Furosemide 20 MG TABLET PO SCH (09:00)
[2016-09-21] MEDS: Gabapentin 300 MG CAPSULE PO SCH ×3 (09:26→21:39)
[2016-09-21] MEDS: lamoTRIgine 100 MG TABLET PO SCH (09:26)
[2016-09-21] MEDS: FLUoxetine 20 MG CAPSULE PO SCH (09:26)
[2016-09-21] MEDS: Aspirin 81 MG TAB.CHEW PO SCH (09:26)
[2016-09-21] MEDS: Clotrimazole 1% CRM 15 GM TUBE TP SCH ×2 (09:31→22:26)
[2016-09-21] MEDS: Fluconazole 100 MG/50 ML 100 MG/50 ML BAG IVPB SCH (09:31)
[2016-09-21 11:06] LABS: Acinetobacter baumannii by PCR Not Detected (Not Detect); Candida albicans by PCR Not Detected (Not Detect); Candida glabrata by PCR Not Detected (Not Detect); Candida krusei by PCR Not Detected (Not Detect); Candida parapsilosis by PCR Not Detected (Not Detect); Candida tropicalis by PCR Not Detected (Not Detect); Enterococcus by PCR Not Detected (Not Detect); Escherichia coli by PCR Not Detected (Not Detect); Klebsiella oxytoca by PCR Not Detected (Not Detect); Klebsiella pneumoniae by PCR Not Detected (Not Detect); Pseudomonas aeruginosa by PCR Not Detected (Not Detect); Serratia marcescens by PCR Not Detected (Not Detect); Staphylococcus aureus by PCR Not Detected (Not Detect); Streptococcus agalactiae(B)PCR Not Detected (Not Detect); Streptococcus by PCR Not Detected (Not Detect); Streptococcus pneumoniae PCR Not Detected (Not Detect); Streptococcus pyogenes (A) PCR Not Detected (Not Detect); mecA Methicillin-Resist Gene ***DETECTED*** (Not Detect)
[2016-09-21] MEDS: Vancomycin 1,750 MG in D5% in Water 500 ML IVPB SCH (11:55)
[2016-09-21] MEDS: *HR* OxyCODONE/APAP 5/325 TABLET PO PRN ×2 (15:02→21:40)
[2016-09-21] MEDS ORDERED: Vancomycin 1,000 MG in D5% in Water 250 ML IVPB SCH (18:00)
[2016-09-21] MEDS: traZODone 50 MG TABLET PO SCH (21:40)
[2016-09-22] MEDS: Insulin LISPRO 300 UNITS/3 ML VIAL SQ SCH ×8 (00:35→23:52)
[2016-09-22] MEDS: Vancomycin 1,750 MG in D5% in Water 500 ML IVPB SCH (03:40)
[2016-09-22 05:20] LABS: Basophils # 0.1 K/mcL (0.0-0.2); Basophils % 0.8 %; Eosinophils # 0.6 K/mcL (0.0-0.6); Eosinophils % 7.7 %; Hematocrit 32.8 % (35.3-44.9); Hemoglobin 10.4 g/dL (11.5-15.4); Immature Granulocytes % 1.3 % (0-4); Lymphocytes # 2.8 K/mcL (0.6-4.6); Lymphocytes % 35.5 %; Mean Corpuscular HGB Conc 31.7 g/dL (31.6-35.5); Mean Corpuscular Hemoglobin 23.7 pg (28.0-33.3); Mean Corpuscular Volume 74.7 fL (83.0-100.0); Mean Platelet Volume 8.9 fL (9.4-12.4); Monocytes # 0.5 K/mcL (0.0-1.3); Monocytes % 6.6 %; Neutrophils # 3.8 K/mcL (1.6-8.9); Platelet Count 276 K/mcL (140-400); Red Blood Count 4.39 M/mcL (3.82-4.97); Red Cell Distribution Width 14.2 % (11.5-14.5); Segmented Neutrophils % 48.1 %
[2016-09-22 06:08] LABS: Calcium 8.3 mg/dL (8.6-10.8); Magnesium 1.1 mg/dL (1.6-2.6); Phosphorous 4.5 mg/dL (2.3-4.7); Potassium 3.7 mEq/L (3.5-4.5)
[2016-09-22] MEDS: *HR* Heparin 5,000 UNIT/ML VIAL SQ SCH ×3 (06:25→22:40)
[2016-09-22] MEDS: Aspirin 81 MG TAB.CHEW PO SCH (08:08)
[2016-09-22] MEDS: Gabapentin 300 MG CAPSULE PO SCH ×3 (08:08→20:01)
[2016-09-22] MEDS: lamoTRIgine 100 MG TABLET PO SCH (08:09)
[2016-09-22] MEDS: FLUoxetine 20 MG CAPSULE PO SCH (08:09)
[2016-09-22] MEDS: Fluconazole 100 MG/50 ML 100 MG/50 ML BAG IVPB SCH (08:10)
--- NOTE | 2016-09-22 08:29 | Internal Med Progress Note ---
Date of Encounter: 09/22/16 Time of Encounter: 08:00 - Constitutional Vitals: Temp Pulse Resp BP Pulse Ox 97.4 F L 57 16 121/58 95 09/22/16 03:35 09/22/16 03:35 09/22/16 03:35 09/22/16 03:35 09/22/16 03:35 General appearance: Present: A&O X 3, morbidly obese, pleasant, no acute distress Internal Medicine: Result - Labs CBC & Chem 7: 09/22/16 04:53 09/22/16 04:53 Labs: Short CBC 09/22/16 Range/Units 04:53 WBC 8.0 (4.3-11.1) K/mcL Hgb 10.4 L (11.5-15.4) g/dL Hct 32.8 L (35.3-44.9) % Plt Count 276 (140-400) K/mcL Neutrophils # 3.8 (1.6-8.9) K/mcL BMP 09/22/16 04:53 Sodium 136 Potassium 3.7 Chloride 106 Carbon Dioxide 21 BUN 17 Creatinine 1.21 H Glucose 215 H Calcium 8.3 L Consult Discharge Plan - Plan Referrals: Kavitha Yu DO [Primary Care Provider] -
[2016-09-22] MEDS: Cefepime HCl 2,000 MG in D5% in Water (Mini-Bag+) 100 ML IVPB SCH (11:55)
[2016-09-22] MEDS: Clotrimazole 1% CRM 15 GM TUBE TP SCH ×2 (11:56→20:03)
--- NOTE | 2016-09-22 13:20 | Infectious Disease Consult ---
Date of Encounter: 09/22/16 Time of Encounter: 13:18 Assessment and Plan (1) Leukocytosis Status: Resolved Assessment and plan: Likely secondary to intertriginous candidal infection with possible superimposed bacterial infection Resolved. Qualifiers: Leukocytosis type: unspecified Qualified Code(s): D72.829 - Elevated white blood cell count, unspecified (2) Candidal intertrigo Status: Acute Assessment and plan: Location: Bilateral upper thighs, bilateral groin, abdominal fold, lower portion of the abdominal wall Per patient report, had the same type of issue three times in the past year. Was treated with IV antibiotics/antifungals per patient reports. Improved based on patient's description. Continue fluconazole 100mg IV daily. Continue topical clotrimazole BID. Continue measures to keep the affected area clean and dry. Advised the patient to avoid wearing pants/underwear when able and to promote air circulation in the affected area with a fan as tolerated. Duration of treatment depends on the clinical picture. Can switch fluconazole to PO when ready for discharge to complete a 4 week course of treatment. Continue topicals as well until symptoms subside (2-4 weeks). Advised the patient that adequate glucose control and weight loss can prevent further infections. (3) Cellulitis Status: Acute Assessment and plan: Location: Bilateral upper thighs, bilateral groin, abdominal fold, lower portion of the abdominal wall. Causative organism unclear. Not sure if there is a true superimposed bacterial cellulitis vs. intertriginous candidal infection only. Broad-spectrum IV antibiotics started per the primary team. Clinically, the patient has improved per her report. Continue Vancomycin IV. Pharmacy to dose. Goal trough approximately 15. Continue Cefepime 2 grams IV Q12H. Duration of treatment depends on the clinical picture, but likely a total of two weeks. Would recommend switching to oral doxycycline and cipro when ready for discharge to complete a two week course. Monitor renal function and for drug toxicity and dose-adjust antibiotics. Qualifiers: Site of cellulitis: trunk Site of cellulitis of trunk: abdominal wall Qualified Code(s): L03.311 - Cellulitis of abdominal wall (4) ASB (asymptomatic bacteriuria) Status: Acute Assessment and plan: Urine culture positive for K. pneumoniae, but the patient denies any urinary symptoms. No indicate to treat ASB in this patient. (5) Bacteremia Status: Acute Assessment and plan: Blood cultures drawn 09/20/16 are positive 1/2 for GPC. PCR picked up MRS Staph species, but not Staph aureus. Likely CONS. Likely a contaminant. Discontinue contact precautions. Await final ID and sensitivities, but low index of suspicion for true infection. (6) Hyperglycemia Status: Acute Assessment and plan: Glucose continues to be high. Likely contributing to the patient's severe intertriginous velvet infection. Recommend aggressive glucose monitoring and control to promote healing and prevent further infection. Management per the primary team. (7) Hypertension Status: Chronic Qualifiers: Hypertension type: essential hypertension Qualified Code(s): I10 - Essential (primary) hypertension (8) Morbid obesity with BMI of 40.0-44.9, adult Status: Chronic (9) Chronic kidney disease, stage 3 Status: Chronic Assessment and plan: Monitor renal functions and dose-adjust antibiotics. Avoid nephrotoxins. Infectious Disease HPI - Data of Consult Patient: new to practice Consult date: 09/22/16 Requesting Physician: Colette Prince MD Primary Care Provider: Kavitha Yu DO - Consult Narrative Reason for consult: Bilateral groin cellulitis/fungal infection History of present illness: Ms. Brothers is a 56 year old female with a past medical history of obesity, insulin-dependent diabetes, hypertension, CKG, and hyperlipidemia. The patient was admitted to the hospital September 20 for cellulitis and fungal infection of the bilateral groin areas. We are consulted September 22 further evaluation and treatment recommendations for bilateral groin infection. The patient is a 56-year-old female with past medical history as stated above. The patient states that on the day of admission she had some nausea and vomiting and generalized weakness. She reported that these symptoms have been ongoing for about a week. She was also complaining of a bilateral groin rash and redness. Upon arrival to the ER she was afebrile and hemodynamically stable. Laboratory studies were revealing of a leukocytosis with neutrophilic predominance. Comprehensive metabolic panel showed that the patient's serum creatinine was mildly elevated at 1.42, which appears to be her baseline. Urinalysis was obtained in the ER that was positive for nitrites and leukocyte esterase as well as white blood cells. Chest x-ray was negative. Blood cultures were obtained 2 sets. The patient was started on empiric IV cefepime. She was admitted to the hospital for further evaluation and treatment. Since admission, the patient has been deemed to have a fungal infection to the bilateral groin and abdominal fold areas. There is concern for possible superimposed cellulitis. Urine culture obtained in the emergency department grew out Klebsiella pneumoniae. Blood cultures also obtained in the ER +1 out of 2 sets for gram-positive cocci. 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 The patient remains on IV cefepime. Additionally, IV fluconazole and vancomycin have been added. The patient is also receiving topical treatment with clotrimazole to the affected area. We have been asked to evaluate and make further recommendations. During my exam today, the patient endorses a history as stated above. She denies any fevers or chills or rigors. She denies a headache or neck pain. She denies any congestion, earache, or sore throat. She denies chest pain, shortness of breath, or cough. She does report some nausea with an episode of emesis, but denies abdominal pain. She denies any urinary complaints including dysuria, urinary frequency, hematuria, or malodorous urine. She denies any CVA tenderness or low back pain. She reports her appetite is okay. She does report some generalized weakness and dizziness and lightheadedness that started approximately 7 days prior to admission. She reports that the rash to her bilateral groin started approximately 5 days ago. She also reports that her blood sugars been out of control for about a week now. 10 point review of systems has been completed and is otherwise negative. CC: Colette Prince MD Past Med Surg Social Fam HX - Past Medical History Attestation: Yes The following information was validated with the patient. Source: patient, old records reviewed, nursing notes reviewed Medical history: asthma, diabetes, hyperlipidemia, hypertension, renal disease Psychiatric history: anxiety - Past Surgical History Surgical History: , cholecystectomy, hysterectomy - Social History Smoking Status: Current every day smoker Packs per day: 1 Smokeless Tobacco Status: No Alcohol use: none Drug use: none Occupational status: unemployed Current living situation: Home - Independent Recent Out of Country Travel Within the Last 8 Weeks: No Exposure or Possible Exposure to Illness During Travel: No - Family History Mother Living Status: Still Living Father Living Status: Still Living Hx Family Cardiac Disorders: Yes (dad had [facility]) Hx Family Respiratory Disorders: No Hx Family Cancer: No Hx Family GI Disorders: No Hx Family Endocrine Disorder: No Hx Family Neuromuscular Disorders: No Hx Family Neurologic Disorders: No Hx Family HEENT Disorders: No Hx Family Autoimmune Disorders: No Infectious Disease-CN:Meds Carvedilol [Coreg] 12.5 mg PO BID 10/31/15 [History] Cholecalciferol (Vitamin D3) [Vitamin D3] 50,000 unit PO TU 10/31/15 [History] FLUoxetine HCl [Prozac] 80 mg PO DAILY 10/31/15 [History] Furosemide [Lasix] 10 mg PO DAILY 10/31/15 [History] Insulin ASPART [NovoLOG] 18 units SQ TIDWM MDD Sliding Scale 10/31/15 [History] Insulin Glargine,Hum.rec.anlog [Lantus Solostar] 48 unit SQ HS #0 10/31/15 [ History] Lovastatin [Altoprev] 40 mg PO DAILY 10/31/15 [History] Omeprazole 20 mg PO DAILY 10/31/15 [History] Triamterene/HCTZ 37.5/25mg [Dyazide] 1 tab PO DAILY #0 10/31/15 [History] Albuterol Sulfate [Proair Hfa] 2 puff IH Q4H PRN 06/06/16 [History] Aspirin 81 mg PO DAILY 06/06/16 [History] Promethazine [Phenergan] 25 mg PO Q6H PRN 06/06/16 [History] Ferrous Sulfate 325 mg PO DAILY 09/20/16 [History] Gabapentin [Gabapentin] 800 mg PO TID 09/20/16 [History] HydrOXYzine Pamoate [Vistaril] 50 - 100 mg PO Q6H PRN 09/20/16 [History] Lamotrigine [Lamictal] 100 mg PO DAILY 09/20/16 [History] Oxybutynin Chloride [Ditropan Xl] 10 mg PO DAILY 09/20/16 [History] TraZODone 50 mg PO HS 09/20/16 [History] Allergies Penicillins Allergy (Verified 09/20/16 12:06) Hives All systems: reviewed and no additional remarkable complaints except as stated Exam - Constitutional Vitals: Temp Pulse Resp BP Pulse Ox 97.9 F 73 16 105/48 94 L 09/22/16 12:00 09/22/16 12:00 09/22/16 12:00 09/22/16 12:00 09/22/16 12:00 General appearance: cooperative, morbidly obese, no acute distress - Head Head exam: Present: atraumatic, normal inspection, normocephalic - Eye Eye exam: Present: EOMI, normal appearance, PERRL Pupils: Present: normal accommodation - ENT ENT exam: Present: mucous membranes moist - Neck Neck exam: Present: normal inspection - Respiratory Respiratory exam: Present: CTAB. Absent: rales, respiratory distress, rhonchi, wheezes - Cardiovascular Cardiovascular exam: Present: RRR, +S1, +S2 - GI/Abdominal GI/Abdominal exam: Present: distended (obese), normal bowel sounds, soft. Absent: tenderness - Extremities Exam Extremities exam: Present: pedal edema. Absent: joint swelling (Trace BLE), tenderness - Back Exam Back exam: Present: normal inspection. Absent: paraspinal tenderness, vertebral tenderness - Neurological Exam Neurological exam: Present: alert, oriented X3, no focal deficits - Psychiatric Psychiatric exam: Present: normal affect, normal mood - Skin Skin exam: Present: dry, erythema (Noted to the bilateral upper thighs, bilateral groin, and the entire abdominal/groin fold extending up into the bottom of the abdomen. No open lesions noted. No warmth noted. No drainage or foul odor noted.), intact, normal color, warm - Expanded Skin Exam 1 - Erythema, no warmth or open lesions/drainage. 2 - Dime-sized scabbed lesion without erythema or drainage. 3 - Dime-sized scabbed lesion without erythema or drainage. Infectious Disease CN: Results - Labs CBC & Chem 7: 09/22/16 04:53 09/22/16 04:53 Cultures: Cultures 09/20/16 10:32 Blood Culture - Preliminary Peripheral Venipuncture No growth. 09/20/16 10:46 Blood Culture - Preliminary Peripheral Venipuncture Gram Positive Cocci 09/20/16 11:20 Urine Culture - Final Urine,Clean Catch Klebsiella pneumoniae Consult Discharge Plan - Plan Referrals: Kavitha Yu DO [Primary Care Provider] - 09/29/16 3:30 pm
--- NOTE | 2016-09-22 15:19 | Electrocardiograph Report ---
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
[2016-09-22] MEDS: traZODone 50 MG TABLET PO SCH (20:01)
[2016-09-22] MEDS: Insulin DETEMIR 100 UNIT/ML X5UNITS SQ SCH (20:16)
[2016-09-22] MEDS ORDERED: Vancomycin 1,750 MG in D5% in Water 500 ML IVPB SCH (22:00)
[2016-09-23] MEDS: Cefepime HCl 2,000 MG in D5% in Water (Mini-Bag+) 100 ML IVPB SCH ×2 (04:17→14:19)
[2016-09-23] MEDS: Insulin LISPRO 300 UNITS/3 ML VIAL SQ SCH ×3 (04:22→11:46)
[2016-09-23] MEDS: *HR* Heparin 5,000 UNIT/ML VIAL SQ SCH ×2 (06:03→14:19)
[2016-09-23] MEDS: Aspirin 81 MG TAB.CHEW PO SCH (08:25)
[2016-09-23] MEDS: lamoTRIgine 100 MG TABLET PO SCH (08:26)
[2016-09-23] MEDS: Gabapentin 300 MG CAPSULE PO SCH ×2 (08:26→14:19)
[2016-09-23] MEDS ORDERED: Magnesium Sulfate 2 GM in D5% in Water 100 ML IVPB ONE (08:32)
[2016-09-23] MEDS: Fluconazole 100 MG/50 ML 100 MG/50 ML BAG IVPB SCH (08:35)
[2016-09-23] MEDS: Clotrimazole 1% CRM 15 GM TUBE TP SCH (08:39)
[2016-09-23] MEDS: FLUoxetine 20 MG CAPSULE PO SCH (08:52)
--- NOTE | 2016-09-23 10:40 | Infectious Disease Progress No ---
Date of Encounter: 09/23/16 Time of Encounter: 10:00 - Assessment and Plan (1) Leukocytosis Current Visit: Yes Status: Resolved Likely secondary to intertriginous candidal infection with possible superimposed bacterial infection Resolved. Qualifiers: Leukocytosis type: unspecified Qualified Code(s): D72.829 - Elevated white blood cell count, unspecified (2) Candidal intertrigo Current Visit: No Status: Acute Location: Bilateral upper thighs, bilateral groin, abdominal fold, lower portion of the abdominal wall Per patient report, had the same type of issue three times in the past year. Was treated with IV antibiotics/antifungals per patient reports. Improved based on patient's description. Continue fluconazole 100mg IV daily. Continue topical clotrimazole BID. Continue measures to keep the affected area clean and dry. Advised the patient to avoid wearing pants/underwear when able and to promote air circulation in the affected area with a fan as tolerated. Duration of treatment depends on the clinical picture. Can switch fluconazole to PO when ready for discharge to complete a 4 week course of treatment. Continue topicals as well until symptoms subside (2-4 weeks). Advised the patient that adequate glucose control and weight loss can prevent further infections. (3) Cellulitis Current Visit: No Status: Acute Location: Bilateral upper thighs, bilateral groin, abdominal fold, lower portion of the abdominal wall. Causative organism unclear. Not sure if there is a true superimposed bacterial cellulitis vs. intertriginous candidal infection only. Broad-spectrum IV antibiotics started per the primary team. Clinically, the patient has improved per her report. Continue Vancomycin IV. Pharmacy to dose. Goal trough approximately 15. Continue Cefepime 2 grams IV Q12H. Duration of treatment depends on the clinical picture, but likely a total of two weeks. Would recommend switching to oral doxycycline and cipro when ready for discharge to complete a two week course. Monitor renal function and for drug toxicity and dose-adjust antibiotics. Qualifiers: Site of cellulitis: trunk Site of cellulitis of trunk: abdominal wall Qualified Code(s): L03.311 - Cellulitis of abdominal wall (4) ASB (asymptomatic bacteriuria) Current Visit: No Status: Acute Urine culture positive for K. pneumoniae, but the patient denies any urinary symptoms. No indicate to treat ASB in this patient. (5) Bacteremia Current Visit: Yes Status: Acute Blood cultures drawn 09/20/16 are positive 1/2 for Staph epi. Likely a contaminant. No need for further treatment. (6) Hyperglycemia Current Visit: Yes Status: Acute Glucose continues to be high. Likely contributing to the patient's severe intertriginous velvet infection. Recommend aggressive glucose monitoring and control to promote healing and prevent further infection. Management per the primary team. (7) Hypertension Current Visit: Yes Status: Chronic Qualifiers: Hypertension type: essential hypertension Qualified Code(s): I10 - Essential (primary) hypertension (8) Morbid obesity with BMI of 40.0-44.9, adult Current Visit: Yes Status: Chronic (9) Chronic kidney disease, stage 3 Current Visit: No Status: Chronic Monitor renal functions and dose-adjust antibiotics. Avoid nephrotoxins. - Subjective Interval history: Patient seen and examined. No acute events noted overnight. Patient sitting up in the chair during the exam. Complains of chronic pain to the BLE and bilateral groin, improved since yesterday. Denies fevers or chills. Denies chest pain, shortness of breath, or cough. Denies nausea, vomiting, or diarrhea. Denies urinary complaints. Denies oral thrush or new skin lesions. States the rash to her groin/abdominal folds is improved. Infect Dis PN-Objective Data - Labs CBC & Chem 7: 09/22/16 04:53 09/22/16 04:53 Labs: Laboratory Results - last 24 hr 09/22/16 09/22/16 09/22/16 03:40 07:59 11:03 POC Glucose 192 H 163 H 221 H 09/22/16 09/22/16 09/22/16 16:07 19:57 23:51 POC Glucose 239 H 211 H 201 H 09/23/16 04:20 POC Glucose 151 H Exam - Constitutional Vitals: Temp Pulse Resp BP Pulse Ox 98.3 F 60 18 127/77 92 L 09/23/16 07:42 09/23/16 08:00 09/23/16 07:42 09/23/16 07:42 09/23/16 07:42 General appearance: cooperative, morbidly obese, no acute distress - Head Head exam: Present: atraumatic, normal inspection, normocephalic - Eye Eye exam: Present: EOMI, normal appearance, PERRL Pupils: Present: normal accommodation - ENT ENT exam: Present: mucous membranes moist - Neck Neck exam: Present: normal inspection - Respiratory Respiratory exam: Present: CTAB. Absent: rales, respiratory distress, rhonchi, wheezes - Cardiovascular Cardiovascular exam: Present: RRR, +S1, +S2 - GI/Abdominal GI/Abdominal exam: Present: distended (obese), normal bowel sounds, soft. Absent: tenderness - Extremities Exam Extremities exam: Present: normal inspection. Absent: joint swelling, pedal edema, tenderness - Neurological Exam Neurological exam: Present: alert, oriented X3, no focal deficits - Psychiatric Psychiatric exam: Present: normal affect, normal mood - Skin Skin exam: Present: dry, erythema (Noted to the bilateral upper thighs, bilateral groin, and the entire abdominal/groin fold extending up into the bottom of the abdomen. No open lesions noted. No warmth noted. No drainage or foul odor noted.), intact, warm - Expanded Skin Exam 1 - Erythema, no warmth or open lesions/drainage. 2 - Dime-sized scabbed lesion without erythema or drainage. 3 - Dime-sized scabbed lesion without erythema or drainage. Consult Discharge Plan - Plan Referrals: Kavitha Yu DO [Primary Care Provider] - 09/29/16 3:30 pm
[2016-09-23 11:07] VITALS: BP 122/65
--- NOTE | 2016-09-23 12:02 | Discharge Summary ---
Date of Encounter: 09/23/16 Time of Encounter: 08:00 - Discharge Diagnosis (1) Cellulitis of groin, right Priority: Primary Status: Acute (2) UTI (urinary tract infection) Priority: Primary Status: Acute Qualifiers: Urinary tract infection type: site unspecified Hematuria presence: without hematuria Qualified Code(s): N39.0 - Urinary tract infection, site not specified (3) Hypertension Priority: Secondary Status: Chronic Qualifiers: Hypertension type: essential hypertension Qualified Code(s): I10 - Essential (primary) hypertension (4) Morbid obesity with BMI of 40.0-44.9, adult Priority: Secondary Status: Chronic (5) Candidal dermatitis Priority: Primary Status: Acute (6) Chronic kidney disease, stage 3 Priority: Secondary Status: Chronic (7) Diabetes mellitus Priority: Secondary Status: Chronic Qualifiers: Diabetes mellitus type: type 2 Diabetes mellitus complication status: with kidney complications Diabetes mellitus complication detail: with chronic kidney disease Diabetes mellitus nursing home insulin use: with adjunct faculty for medical terminology use Chronic kidney disease stage: stage 3 (moderate) Qualified Code(s): E11.22 - Type 2 diabetes mellitus with diabetic chronic kidney disease; N18.3 - Chronic kidney disease, stage 3 (moderate); Z79.4 - assisted (current) use of insulin - Discharge Medications Prescriptions: Ciprofloxacin [Cipro] 500 mg PO BID #20 tablet Clotrimazole 1% CRM [Lotrimin 1%] 1 appl TP BID 14 Days Doxycycline 100 mg PO BID #20 capsule Fluconazole [Diflucan] 100 mg PO DAILY #24 tablet Home Medications: Carvedilol [Coreg] 12.5 mg PO BID 10/31/15 [History] Cholecalciferol (Vitamin D3) [Vitamin D3] 50,000 unit PO TU 10/31/15 [History] FLUoxetine HCl [Prozac] 80 mg PO DAILY 10/31/15 [History] Furosemide [Lasix] 10 mg PO DAILY 10/31/15 [History] Insulin ASPART [NovoLOG] 18 units SQ TIDWM MDD Sliding Scale 10/31/15 [History] Lovastatin [Altoprev] 40 mg PO DAILY 10/31/15 [History] Omeprazole 20 mg PO DAILY 10/31/15 [History] Triamterene/HCTZ 37.5/25mg [Dyazide] 1 tab PO DAILY #0 10/31/15 [History] Albuterol Sulfate [Proair Hfa] 2 puff IH Q4H PRN 06/06/16 [History] Aspirin 81 mg PO DAILY 06/06/16 [History] Promethazine [Phenergan] 25 mg PO Q6H PRN 06/06/16 [History] Ferrous Sulfate 325 mg PO DAILY 09/20/16 [History] Gabapentin 800 mg PO TID 09/20/16 [History] HydrOXYzine Pamoate [Vistaril] 50 - 100 mg PO Q6H PRN 09/20/16 [History] Lamotrigine [Lamictal] 100 mg PO DAILY 09/20/16 [History] Oxybutynin Chloride [Ditropan Xl] 10 mg PO DAILY 09/20/16 [History] TraZODone 50 mg PO HS 09/20/16 [History] Ciprofloxacin [Cipro] 500 mg PO BID #20 tablet 09/23/16 [Rx] Clotrimazole 1% CRM [Lotrimin 1%] 1 appl TP BID 14 Days 09/23/16 [Rx] Doxycycline 100 mg PO BID #20 capsule 09/23/16 [Rx] Fluconazole [Diflucan] 100 mg PO DAILY #24 tablet 09/23/16 [Rx] Insulin Glargine,Hum.rec.anlog [Lantus Solostar] 40 unit SQ HS #0 09/23/16 [Rx] Allergies/Adverse Reactions: Allergies Penicillins Allergy (Verified 09/20/16 12:06) Hives Date of admission: 09/20/16 12:45 Primary care physician: Kavitha Yu DO Consults: 09/20/16 14:21 Consult to Agricultural Research Technician [CONS] Routine Reason for SW Consult: PT CURRENTLY HAS HOME HEALTH BUT UNSURE OF THE PROVIDER 09/20/16 23:54 Consult to Occupational Therapy [CONS] Routine Comment: Evaluate, develop and implement POC Consult to Physical Therapy [CONS] Routine Comment: Evaluate, develop and implement POC Consult to Wound Care [CONS] Routine Reason for Consult: large fungal infection under panus and in groin Call Completed: No 09/21/16 08:40 Consult to Infectious Diseases [CONS] Stat Consulting Provider: Infectious Disease Ania Reason for Consult: severe cellulitis of the groin (concern for superimposed fungal infection) Call Completed: Yes Discharging clinician: Nata Campbell Anticipated date of discharge: 09/23/16 - Patient Status Disposition: Transfer SNF Condition: Fair Functional capacity at discharge: uses cane/walker Overall status at discharge: patient is progressing back to baseline - Discharge Instructions Follow Up With: Kavitha Yu DO [Primary Care Provider] - (THIS APPOINTMENT IS CANCELED, PATIENT WENT TO [facility]) - Diet and Activity Activity: as per physical therapy Diet: diabetic diet, low fat, low cholesterol, low salt diet Hospital course: Ms. Brothers is a 56 year old female with the above medical problems admitted with lower extremity pain and elevated blood sugars. Patient was noted to have candidal infection of bilateral groin and lower abdominal area along with mild cellulitis from possible bacterial superinfection. She was started on IV fluconazole along with IV vancomycin and cefepime. Patient's symptoms significantly improved on this regimen. One out of 2 blood cultures grew staph epidermidis. Urine culture grew Klebsiella pneumoniae. Infectious diseases was consulted, who agreed with current management and recommend to discharge patient on oral fluconazole to complete a four-week course along with oral doxycycline and ciprofloxacin to complete a two-week course. Patient remained clinically stable and asymptomatic during her hospitalization. Physical therapy evaluation was completed and patient was recommended to be transferred to extended care facility for continued rehabilitation prior to discharge home. Patient is currently medically stable for discharge. - Time Spent with Patient Total time spent providing and/or coordinating discharge services: Greater than 30 minutes (50 min) - Constitutional Vitals: Temp Pulse Resp BP Pulse Ox 97.9 F 60 16 122/65 93 L 09/23/16 11:02 09/23/16 11:25 09/23/16 11:02 09/23/16 11:02 09/23/16 11:02 General appearance: Present: A&O X 3, morbidly obese, answers questions appropriately - Respiratory Respiratory exam: Present: CTAB. Absent: accessory muscle use, rales, rhonchi, wheezes - Skin Skin exam: Present: dry, erythema (Mild erythema, likely related to fungal dermatitis in lower abdomen and skin folds and bilateral groins), intact
--- NOTE | 2016-09-23 12:05 | Physician Discharge Referral ---
ExtendedCare Referral Info Transfer To: [facility] Provider in Charge: Nata Campbell Provider in Charge after Transfer: PCP Institutional Level of Care: Skilled - Diagnosis (1) Cellulitis of groin, right Priority: Primary Status: Acute (2) UTI (urinary tract infection) Priority: Primary Status: Acute (3) Hypertension Priority: Secondary Status: Chronic (4) Morbid obesity with BMI of 40.0-44.9, adult Priority: Secondary Status: Chronic (5) Candidal dermatitis Priority: Primary Status: Acute (6) Chronic kidney disease, stage 3 Priority: Secondary Status: Chronic (7) Diabetes mellitus Priority: Secondary Status: Chronic Expected Duration of Placement: 3 weeks Prognosis: Good Aware of Diagnosis: Patient Aware of Prognosis: Patient - Transfer Medications Prescriptions: Ciprofloxacin [Cipro] 500 mg PO BID #20 tablet Clotrimazole 1% CRM [Lotrimin 1%] 1 appl TP BID 14 Days Doxycycline 100 mg PO BID #20 capsule Fluconazole [Diflucan] 100 mg PO DAILY #24 tablet Home Medications: Carvedilol [Coreg] 12.5 mg PO BID 10/31/15 [History] Cholecalciferol (Vitamin D3) [Vitamin D3] 50,000 unit PO TU 10/31/15 [History] FLUoxetine HCl [Prozac] 80 mg PO DAILY 10/31/15 [History] Furosemide [Lasix] 10 mg PO DAILY 10/31/15 [History] Insulin ASPART [NovoLOG] 18 units SQ TIDWM MDD Sliding Scale 10/31/15 [History] Lovastatin [Altoprev] 40 mg PO DAILY 10/31/15 [History] Omeprazole 20 mg PO DAILY 10/31/15 [History] Triamterene/HCTZ 37.5/25mg [Dyazide] 1 tab PO DAILY #0 10/31/15 [History] Albuterol Sulfate [Proair Hfa] 2 puff IH Q4H PRN 06/06/16 [History] Aspirin 81 mg PO DAILY 06/06/16 [History] Promethazine [Phenergan] 25 mg PO Q6H PRN 06/06/16 [History] Ferrous Sulfate 325 mg PO DAILY 09/20/16 [History] Gabapentin 800 mg PO TID 09/20/16 [History] HydrOXYzine Pamoate [Vistaril] 50 - 100 mg PO Q6H PRN 09/20/16 [History] Lamotrigine [Lamictal] 100 mg PO DAILY 09/20/16 [History] Oxybutynin Chloride [Ditropan Xl] 10 mg PO DAILY 09/20/16 [History] TraZODone 50 mg PO HS 09/20/16 [History] Ciprofloxacin [Cipro] 500 mg PO BID #20 tablet 09/23/16 [Rx] Clotrimazole 1% CRM [Lotrimin 1%] 1 appl TP BID 14 Days 09/23/16 [Rx] Doxycycline 100 mg PO BID #20 capsule 09/23/16 [Rx] Fluconazole [Diflucan] 100 mg PO DAILY #24 tablet 09/23/16 [Rx] Insulin Glargine,Hum.rec.anlog [Lantus Solostar] 40 unit SQ HS #0 09/23/16 [Rx] Allergies/Adverse Reactions: Allergies Penicillins Allergy (Verified 09/20/16 12:06) Hives - Respiratory Orders Smoking Cessation: Smoking cessation has been advised. For more information, call the [place] Tobacco Quit Line at 0-697-KCSD-NOW. - Ancillary Orders May use pressure relief devices daily prn - Advance Directives Code Status: DNR-Arrest/Don't Intubate - Mobility Orders Ambulate - Rehabiliation Orders Rehab Potential: Good Rehab Orders: ROM Exercises, Evaluation for Physical Therapy, Evaluation for Occupational Therapy - Diet Orders No Added Salt (STEPHANIE), No Concentrated Sweets (diabetic) CERTIFICATION: I certify that the transfer of the above named patient to an Extended Care Facility is necessary for the continuing treatment of the diagnosis listed. The above information is true and accurate reflection of patient's current condition. Confidential - Redisclosure prohibited without a patient's written consent.
[2016-09-23] MEDS ORDERED: Aminoglycoside Consult 1 EACH MC ONE (15:23)
== END 2016-09-23 15:24 ==
LOC: EMEROO 10:04 → 2NNU 10:04 → SUATTDRO 12:45 → 2NNU 13:30
PROVIDERS: ADMIT Internal Medicine; ATTEND Internal Medicine

== ENCOUNTER 2017-11-01 09:30 | Observation (INO) ==
--- NOTE | 2017-11-01 10:25 | Emergency Department Note ---
Disposition Clinical Impression: Abdominal wall cellulitis, Candidal intertrigo Disposition: Admitted As Inpatient Condition: Fair Time of Disposition: 11:40 General Adult HPI - General Chief complaint: ED Skin/Abscess/Foreign Body Stated complaint: Redness in Groin area Time Seen by Provider: 11/01/17 09:35 Source: patient, EMS Limitations: no limitations Nursing Notes Reviewed: Yes Vital Signs Reviewed: Yes - History of Present Illness HPI Narrative: Mercedes Brothers is a 57-year-old female that came in from home by EMS complaining of redness and burning to her groin area. Complains of these symptoms starting yesterday. She denies any abdominal pain, vomiting, fever, chills, vaginal bleeding or discharge. Pt Subjective Complaint: Redness and burning to the groin area Onset (ago): day(s) Location: genitals Radiation: non-radiation Pain Severity: moderate Pain Scale: 9 Quality: burning, aching Consistency: constant Improves with: nothing Worsens with: movement Associated symptoms: Denies: chest pain, cough, diaphoresis, fever/chills Treatments Prior to Arrival: none - Related Data Home Medications Medication Instructions Recorded Confirmed Carvedilol [Coreg] 12.5 mg PO BID 10/31/15 11/01/17 Cholecalciferol (Vitamin D3) 50,000 unit PO TU 10/31/15 11/01/17 [Vitamin D3] FLUoxetine HCl [Prozac] 40 mg PO DAILY 10/31/15 11/01/17 Furosemide [Lasix] 10 mg PO DAILY 10/31/15 11/01/17 Insulin ASPART [NovoLOG] 18 units SQ TIDWM MDD Sliding Scale 10/31/15 11/01/17 Lovastatin [Altoprev] 40 mg PO DAILY 10/31/15 11/01/17 Omeprazole 20 mg PO DAILY 10/31/15 11/01/17 Triamterene/HCTZ 37.5/25mg 1 tab PO DAILY #0 10/31/15 11/01/17 [Dyazide] Albuterol Sulfate [Proair Hfa] 2 puff IH Q4H PRN 06/06/16 11/01/17 Aspirin 81 mg PO DAILY 06/06/16 11/01/17 Promethazine [Phenergan] 25 mg PO Q6H PRN 06/06/16 11/01/17 Ferrous Sulfate 325 mg PO DAILY 09/20/16 11/01/17 Gabapentin 800 mg PO QID 09/20/16 11/01/17 HydrOXYzine Pamoate [Vistaril] 50 - 100 mg PO Q6H PRN 09/20/16 11/01/17 lamoTRIgine [Lamictal] 200 mg PO DAILY 09/20/16 11/01/17 traZODone [TraZODone] 50 mg PO HS 09/20/16 11/01/17 Insulin Glargine,Hum.rec.anlog 74 unit SQ HS 11/01/17 11/01/17 [Lantus Solostar] Nystatin [Nystatin] 1 appl TP BID 11/01/17 11/01/17 clonazePAM [Klonopin] 0.5 mg PO BID PRN 11/01/17 11/01/17 metFORMIN [Glucophage] 500 mg PO BID 11/01/17 11/01/17 Previous Rx's Medication Instructions Recorded HYDROcodone/Acet 5/325 mg [[place] 1 - 2 tab PO Q6H PRN #10 tab 04/09/17 5-325 mg] Allergies Allergy/AdvReac Type Severity Reaction Status Date / Time Penicillins Allergy Hives Verified 09/20/16 12:06 All systems ED: reviewed and negative except as stated. Constitutional: Denies: fever, chills, weakness, weight change Eyes: Denies: eye pain, eye discharge, vision change ENT ED: Denies: ear pain, throat pain, dental pain, hearing loss, epistaxis, congestion, dysphagia Cardiovascular: Denies: chest pain, palpitations, dyspnea on exertion, edema, syncope Respiratory: Denies: cough, dyspnea, wheezes, hemoptysis, stridor Gastrointestinal: Denies: abdominal pain, nausea, vomiting, diarrhea, constipation, hematemesis, melena, hematochezia Genitourinary: Denies: dysuria, frequency, hematuria, discharge Musculoskeletal: Denies: back pain, neck pain, arthralgia, myalgia Integumentary: Reports: rash (Red and draining rash, the patient is unable to view most of it due to body habitus.), pruritus. Denies: abrasion, lesions Neurological: Denies: headache, weakness, numbness, paresthesias, confusion, abnormal gait, vertigo Psychiatric: Denies: anxiety, depression, suicidal thoughts, homicidal thoughts , auditory hallucinations, visual hallucinations Endocrine: Denies: fatigue Hematological/Lymphatic: Denies: easy bleeding, easy bruising Allergic/Immunologic: Denies: facial swelling, urticaria Past Medical History - Past Medical History Attestation: Yes The following information was validated with the patient. Source: patient, nursing notes reviewed Medical history: Reports: asthma, coronary artery disease, diabetes, hyperlipidemia, hypertension, renal disease Surgical history: Reports: , cholecystectomy, hysterectomy Psychiatric history: Reports: anxiety, depression - Social History Smoking Status: Current every day smoker Packs per day: 1.5 Smokeless Tobacco Status: No Alcohol use: Reports: rarely Drug use: Reports: none Physical Exam Obese 57-year-old female that arrived by squad complaining of redness and burning to her groin area. States that she lives at home and has difficulty getting around due to pain in her knees and her excessive weight. Patient complained of pain to her calling but on exam redness is noted underneath her pannus just above her perineum area and to bilateral inguinal folds. - General Limitations: physical limitation (Due to body habitus and obesity. States she has difficulty ambulating due to pain in her knees.) General appearance: alert, in no apparent distress - Head Head exam: atraumatic, normocephalic, normal inspection - Eye Eye exam: Present: normal appearance, PERRL, EOMI - Expanded Eye Exam Eyelids: bilateral: normal inspection Pupils: Left: reactive - ENT ENT exam: normal exam, normal oropharynx, mucous membranes moist - Expanded ENT Exam External ear exam: Present: normal external inspection Nose exam: negative: rhinorrhea, sinus tenderness Mouth exam: Present: normal external inspection Teeth exam: Present: normal inspection Throat exam: Present: normal inspection - Neck Neck exam: Present: normal inspection, full ROM, trachea midline - Chest Chest inspection: Present: normal inspection, symmetric chest wall rise - Respiratory Respiratory exam: Present: normal lung sounds bilaterally - Cardiovascular Cardiovascular exam: Present: regular rate, normal rhythm, normal heart sounds - Abdominal Exam Abdominal exam: Present: soft, Non-Tender. Absent: tenderness, distention, guarding, rebound, rigidity - Rectal Exam Credit And Collections Analyst present during exam: No Rectal exam: Present: deferred - Female Credit And Collections Analyst present during exam: Yes (Sindi Hernandez) External Exam: Present: erythema, tenderness Speculum Exam: Present: Pt Deferred Bimanual Exam: Present: Pt Deferred Female Genital Image: 1 - red and excoriated area with purulent discharge 2 - Red and excoriated area with purulent discharge 3 - Red and excoriated area with purulent discharge - Extremities Exam Extremities exam: Present: normal inspection, full ROM. Absent: tenderness, pedal edema - Expanded Upper Extremity Exam Shoulder exam: Present: normal inspection, full ROM Arm exam: Present: normal inspection, full ROM Elbow exam: Present: normal inspection, full ROM Forearm/Wrist exam: Present: normal inspection, full ROM Hand exam: Present: normal inspection, full ROM Vascular exam: Normal: capillary refill, radial pulse - Expanded Lower Extremity Exam Hip/Pelvis exam: Present: normal inspection, full ROM Upper leg exam: Present: normal inspection, full ROM Knee exam: Present: normal inspection, full ROM Lower leg exam: Present: normal inspection, full ROM Ankle exam: Present: normal inspection, full ROM Foot/toe exam: Present: normal inspection, full ROM Neurovascular/Tendon exam: Absent: motor deficit, sensory deficit, tendon deficit - Back Exam Back exam: Present: normal inspection, full ROM. Absent: tenderness - Neurological Exam Neurological exam: Present: alert, oriented X3 - Expanded Neurological Exam Patient oriented to: Present: person, place, time Coma Scale Eye Opening: Spontaneous Coma Scale Motor Response: Obeys Commands Coma Scale Verbal Response: Oriented Coma Scale Total: 15 - Psychiatric Psychiatric exam: Present: normal affect, normal mood - Skin Skin exam: Present: warm, dry, intact, normal color, other (Patient has red and excoriated area underneath the pannus, both inner thighs and just above the perineal area. There is also purulent discharge along with what appears to be tissue paper in between the folds of skin.) Course Course Narrative: Examination of the patient along with labs, urine specimen and CT of the abdomen. Patient will likely be admitted for cellulitis to obtain antibiotics and antifungal's. 1139: I spoke with Dr. Carver of the hospitalist service who has accepted the patient to the hospitalist care for further management of her candidal intertrigo with questionable superimposed bacterial cellulitis. - Reevaluation(s) Reevaluation #1: Labs were reviewed and discussed with patient and will admit patient to hospital. Also started on cefepime, vancomycin, fluconazole and clotrimazole. Time: 11:32 Vital Signs Temperature 98.1 F 11/01/17 09:34 Pulse Rate 81 11/01/17 09:34 Respiratory Rate 18 11/01/17 09:34 Blood Pressure 176/88 11/01/17 09:34 O2 Sat by Pulse Oximetry 92 11/01/17 09:34 Temperature 98.6 F 11/01/17 16:12 Pulse Rate 69 11/01/17 16:12 Respiratory Rate 16 11/01/17 16:12 Blood Pressure 130/78 11/01/17 16:12 O2 Sat by Pulse Oximetry 92 11/01/17 16:12 Oxygen Delivery Oxygen Delivery Room Air Medical Decision Making - Differential Diagnosis Cellulitis - Medical Records Medical records reviewed: Yes I reviewed the patient's medical records. - Lab Data Lab results reviewed: Yes I reviewed the patient's lab results. Lab results narrative: Laboratory Last Values WBC 13.7 K/mcL (4.3-11.1) H 11/01/17 10:17 RBC 4.43 M/mcL (3.82-4.97) 11/01/17 10:17 Hgb 12.9 g/dL (11.5-15.4) 11/01/17 10:17 Hct 38.1 % (35.3-44.9) 11/01/17 10:17 MCV 86.0 fL (83.0-100.0) 11/01/17 10:17 MCH 29.1 pg (28.0-33.3) 11/01/17 10:17 MCHC 33.9 g/dL (31.6-35.5) 11/01/17 10:17 RDW 14.6 % (11.5-14.5) H 11/01/17 10:17 Plt Count 267 K/mcL (140-400) 11/01/17 10:17 MPV 9.0 fL (9.4-12.4) L 11/01/17 10:17 Immature Gran % 0.7 % (0-4) 11/01/17 10:17 Seg Neutrophils % 71.3 % 11/01/17 10:17 Lymphocytes % 20.0 % 11/01/17 10:17 Monocytes % 4.7 % 11/01/17 10:17 Eosinophils % 2.8 % 11/01/17 10:17 Basophils % 0.5 % 11/01/17 10:17 Neutrophils # 9.8 K/mcL (1.6-8.9) H 11/01/17 10:17 Lymphocytes # 2.7 K/mcL (0.6-4.6) 11/01/17 10:17 Monocytes # 0.6 K/mcL (0.0-1.3) 11/01/17 10:17 Eosinophils # 0.4 K/mcL (0.0-0.6) 11/01/17 10:17 Basophils # 0.1 K/mcL (0.0-0.2) 11/01/17 10:17 ESR 88 mm/hr (0-15) H 11/01/17 10:17 Sodium 135 mEq/L (136-145) L 11/01/17 10:17 Potassium 3.6 mEq/L (3.5-5.1) 11/01/17 10:17 Chloride 102 mEq/L (98-107) 11/01/17 10:17 Carbon Dioxide 24 mEq/L (23-29) 11/01/17 10:17 BUN 26 mg/dL (6-20) H 11/01/17 10:17 Creatinine 1.35 mg/dL (0.60-1.20) H 11/01/17 10:17 Est GFR ( Amer) 49 (> 60) L 11/01/17 10:17 Est GFR (Non-Af Amer) 41 (> 60) L 11/01/17 10:17 BUN/Creatinine Ratio 19 (6-26) 11/01/17 10:17 Glucose 295 mg/dL (70-105) H 11/01/17 10:17 Calculated Osmolality 296 (280-300) 11/01/17 10:17 Lactic Acid 2.5 mmol/L (0.5-2.2) H 11/01/17 10:17 Calcium 8.7 mg/dL (8.6-10.3) 11/01/17 10:17 Total Bilirubin 0.4 mg/dL (0.3-1.0) 11/01/17 10:17 AST 8 Units/L (13-39) L 11/01/17 10:17 ALT 8 Units/L (7-52) 11/01/17 10:17 Alkaline Phosphatase 82 Units/L (34-104) 11/01/17 10:17 C-Reactive Protein 85 mg/L (Less than 10) H 11/01/17 10:17 Serum Total Protein 6.7 g/dL (6.4-8.9) 11/01/17 10:17 Albumin 3.7 g/dL (3.5-5.7) 11/01/17 10:17 Globulin 3.0 g/dL (2.4-3.5) 11/01/17 10:17 Albumin/Globulin Ratio 1.2 (1.1-2.2) 11/01/17 10:17 Urine Color Yellow (Yellow) 11/01/17 10:55 Urine Clarity Turbid (Clear) A 11/01/17 10:55 Urine pH 6.0 pH Units (5.0-8.0) 11/01/17 10:55 Ur Specific [place] 1.015 (1.010-1.025) 11/01/17 10:55 Urine Protein 100 mg/dL (Neg-Trace) H 11/01/17 10:55 Urine Glucose (UA) Normal mg/dL (Normal) 11/01/17 10:55 Urine Ketones Negative mg/dL (Negative) 11/01/17 10:55 Urine Blood Small (Negative) H 11/01/17 10:55 Urine Nitrite Negative (Negative) 11/01/17 10:55 Urine Bilirubin Negative (Negative) 11/01/17 10:55 Urine Urobilinogen Normal mg/dL (Normal) 11/01/17 10:55 Ur Leukocyte Esterase Large (Negative) H 11/01/17 10:55 Urine Microscopic RBC 3-5 per hpf (0-3) H 11/01/17 10:55 Urine Microscopic WBC TNTC per hpf (0-3) H 11/01/17 10:55 Ur Squamous Epith Cells Moderate per lpf (None-Few) H 11/01/17 10:55 Urine Bacteria Few per hpf (None-Few) 11/01/17 10:55 Hyaline Casts None Seen per lpf (None-Few) 11/01/17 10:55 Ur Culture Indicated? YES (NO) A 11/01/17 10:55 Result diagrams: 11/01/17 10:17 11/01/17 10:17 Lab Results 11/01/17 11/01/17 11/01/17 Range/Units 10:17 10:17 10:17 WBC 13.7 H (4.3-11.1) K/mcL RBC 4.43 (3.82-4.97) M/mcL Hgb 12.9 (11.5-15.4) g/dL Hct 38.1 (35.3-44.9) % MCV 86.0 (83.0-100.0) fL MCH 29.1 (28.0-33.3) pg MCHC 33.9 (31.6-35.5) g/dL RDW 14.6 H (11.5-14.5) % Plt Count 267 (140-400) K/mcL MPV 9.0 L (9.4-12.4) fL Immature Gran % 0.7 (0-4) % Seg Neutrophils % 71.3 % Lymphocytes % 20.0 % Monocytes % 4.7 % Eosinophils % 2.8 % Basophils % 0.5 % Neutrophils # 9.8 H (1.6-8.9) K/mcL Lymphocytes # 2.7 (0.6-4.6) K/mcL Monocytes # 0.6 (0.0-1.3) K/mcL Eosinophils # 0.4 (0.0-0.6) K/mcL Basophils # 0.1 (0.0-0.2) K/mcL ESR 88 H (0-15) mm/hr Sodium 135 L (136-145) mEq/L Potassium 3.6 (3.5-5.1) mEq/L Chloride 102 (98-107) mEq/L Carbon Dioxide 24 (23-29) mEq/L BUN 26 H (6-20) mg/dL Creatinine 1.35 H (0.60-1.20) mg/dL Est GFR ( Amer) 49 L (> 60) Est GFR (Non-Af Amer) 41 L (> 60) BUN/Creatinine Ratio 19 (6-26) Glucose 295 H (70-105) mg/dL Calculated Osmolality 296 (280-300) Lactic Acid (0.5-2.2) mmol/L Calcium 8.7 (8.6-10.3) mg/dL Total Bilirubin 0.4 (0.3-1.0) mg/dL AST 8 L (13-39) Units/L ALT 8 (7-52) Units/L Alkaline Phosphatase 82 (34-104) Units/L C-Reactive Protein (Less than 10) mg/L Serum Total Protein 6.7 (6.4-8.9) g/dL Albumin 3.7 (3.5-5.7) g/dL Globulin 3.0 (2.4-3.5) g/dL Albumin/Globulin Ratio 1.2 (1.1-2.2) Urine Color (Yellow) Urine Clarity (Clear) Urine pH (5.0-8.0) pH Units Ur Specific [place] (1.010-1.025) Urine Protein (Neg-Trace) mg/dL Urine Glucose (UA) (Normal) mg/dL Urine Ketones (Negative) mg/dL Urine Blood (Negative) Urine Nitrite (Negative) Urine Bilirubin (Negative) Urine Urobilinogen (Normal) mg/dL Ur Leukocyte Esterase (Negative) Urine Microscopic RBC (0-3) per hpf Urine Microscopic WBC (0-3) per hpf Ur Squamous Epith Cells (None-Few) per lpf Urine Bacteria (None-Few) per hpf Hyaline Casts (None-Few) per lpf Ur Culture Indicated? (NO) 11/01/17 11/01/17 11/01/17 Range/Units 10:17 10:17 10:55 WBC (4.3-11.1) K/mcL RBC (3.82-4.97) M/mcL Hgb (11.5-15.4) g/dL Hct (35.3-44.9) % MCV (83.0-100.0) fL MCH (28.0-33.3) pg MCHC (31.6-35.5) g/dL RDW (11.5-14.5) % Plt Count (140-400) K/mcL MPV (9.4-12.4) fL Immature Gran % (0-4) % Seg Neutrophils % % Lymphocytes % % Monocytes % % Eosinophils % % Basophils % % Neutrophils # (1.6-8.9) K/mcL Lymphocytes # (0.6-4.6) K/mcL Monocytes # (0.0-1.3) K/mcL Eosinophils # (0.0-0.6) K/mcL Basophils # (0.0-0.2) K/mcL ESR (0-15) mm/hr Sodium (136-145) mEq/L Potassium (3.5-5.1) mEq/L Chloride (98-107) mEq/L Carbon Dioxide (23-29) mEq/L BUN (6-20) mg/dL Creatinine (0.60-1.20) mg/dL Est GFR ( Amer) (> 60) Est GFR (Non-Af Amer) (> 60) BUN/Creatinine Ratio (6-26) Glucose (70-105) mg/dL Calculated Osmolality (280-300) Lactic Acid 2.5 H (0.5-2.2) mmol/L Calcium (8.6-10.3) mg/dL Total Bilirubin (0.3-1.0) mg/dL AST (13-39) Units/L ALT (7-52) Units/L Alkaline Phosphatase (34-104) Units/L C-Reactive Protein 85 H (Less than 10) mg/L Serum Total Protein (6.4-8.9) g/dL Albumin (3.5-5.7) g/dL Globulin (2.4-3.5) g/dL Albumin/Globulin Ratio (1.1-2.2) Urine Color Yellow (Yellow) Urine Clarity Turbid A (Clear) Urine pH 6.0 (5.0-8.0) pH Units Ur Specific [place] 1.015 (1.010-1.025) Urine Protein 100 H (Neg-Trace) mg/dL Urine Glucose (UA) Normal (Normal) mg/dL Urine Ketones Negative (Negative) mg/dL Urine Blood Small H (Negative) Urine Nitrite Negative (Negative) Urine Bilirubin Negative (Negative) Urine Urobilinogen Normal (Normal) mg/dL Ur Leukocyte Esterase Large H (Negative) Urine Microscopic RBC 3-5 H (0-3) per hpf Urine Microscopic WBC TNTC H (0-3) per hpf Ur Squamous Epith Cells Moderate H (None-Few) per lpf Urine Bacteria Few (None-Few) per hpf Hyaline Casts None Seen (None-Few) per lpf Ur Culture Indicated? YES A (NO) Critical Care Time Critical Care Time: No
[2017-11-01 10:39] LABS: Basophils # 0.1 K/mcL (0.0-0.2); Basophils % 0.5 %; Eosinophils # 0.4 K/mcL (0.0-0.6); Eosinophils % 2.8 %; Hematocrit 38.1 % (35.3-44.9); Hemoglobin 12.9 g/dL (11.5-15.4); Immature Granulocytes % 0.7 % (0-4); Lymphocytes # 2.7 K/mcL (0.6-4.6); Mean Corpuscular HGB Conc 33.9 g/dL (31.6-35.5); Mean Corpuscular Hemoglobin 29.1 pg (28.0-33.3); Monocytes # 0.6 K/mcL (0.0-1.3); Monocytes % 4.7 %; Neutrophils # 9.8 K/mcL (1.6-8.9); Platelet Count 267 K/mcL (140-400); Red Blood Count 4.43 M/mcL (3.82-4.97); Red Cell Distribution Width 14.6 % (11.5-14.5); Segmented Neutrophils % 71.3 %
[2017-11-01 10:57] LABS: Albumin 3.7 g/dL (3.5-5.7); Albumin/Globulin Ratio 1.2 (1.1-2.2); Bilirubin,Total 0.4 mg/dL (0.3-1.0); Calcium 8.7 mg/dL (8.6-10.3); Potassium 3.6 mEq/L (3.5-5.1); Total Protein 6.7 g/dL (6.4-8.9)
[2017-11-01] MEDS ORDERED: Cefepime HCl 2,000 MG in Water for inj. (sterile) 20 ML 20 ML IVP STA (11:02)
[2017-11-01] MEDS ORDERED: 0.9 % Sodium Chloride 1,000 ML IVC ONE (11:05)
[2017-11-01 11:11] LABS: Bilirubin,Urine Negative (Negative); Blood,Urine Small (Negative); Clarity,Urine Turbid (Clear); Color,Urine Yellow (Yellow); Glucose,Urine (UA) Normal (Normal); Ketones,Urine Negative (Negative); Leukocyte Esterase,Urine Large (Negative); Nitrite,Urine Negative (Negative); Protein,Urine 100 mg/dL (Neg-Trace); Specific Gravity,Urine 1.015 (1.010-1.025); Urobilinogen,Urine Normal (Normal)
[2017-11-01 11:13] LABS: Bacteria,Urine Few per hpf (None-Few); Hyaline Casts,Urine None Seen per lpf (None-Few); Squamous Epithelial Cell,Urine Moderate per lpf (None-Few); WBC,Urine TNTC per hpf (0-3)
--- NOTE | 2017-11-01 11:31 | Emergency Department Note ---
Disposition Clinical Impression: Abdominal wall cellulitis, Candidal intertrigo Disposition: Admitted As Inpatient Condition: Fair Referrals: Kavitha Yu DO [Primary Care Provider] - Forms: ED Satisfaction Letter General Adult HPI - General Chief complaint: ED Skin/Abscess/Foreign Body Stated complaint: Redness in Groin area Time Seen by Provider: 11/01/17 09:35 Source: patient, EMS Limitations: physical limitation (Due to body habitus and obesity. States she has difficulty ambulating due to pain in her knees.) - History of Present Illness Location: genitals Pain Scale: 9 Quality: burning, aching Improves with: nothing Worsens with: movement Associated symptoms: Denies: chest pain, cough, diaphoresis, fever/chills Treatments Prior to Arrival: none - Related Data Home Medications Medication Instructions Recorded Confirmed Carvedilol [Coreg] 12.5 mg PO BID 10/31/15 09/20/16 Cholecalciferol (Vitamin D3) 50,000 unit PO TU 10/31/15 09/20/16 [Vitamin D3] FLUoxetine HCl [Prozac] 80 mg PO DAILY 10/31/15 09/20/16 Furosemide [Lasix] 10 mg PO DAILY 10/31/15 09/20/16 Insulin ASPART [NovoLOG] 18 units SQ TIDWM MDD Sliding Scale 10/31/15 09/20/16 Lovastatin [Altoprev] 40 mg PO DAILY 10/31/15 09/20/16 Omeprazole 20 mg PO DAILY 10/31/15 09/20/16 Triamterene/HCTZ 37.5/25mg 1 tab PO DAILY #0 10/31/15 09/20/16 [Dyazide] Albuterol Sulfate [Proair Hfa] 2 puff IH Q4H PRN 06/06/16 09/20/16 Aspirin 81 mg PO DAILY 06/06/16 09/20/16 Promethazine [Phenergan] 25 mg PO Q6H PRN 06/06/16 09/20/16 Ferrous Sulfate 325 mg PO DAILY 09/20/16 09/20/16 Gabapentin 800 mg PO TID 09/20/16 09/20/16 HydrOXYzine Pamoate [Vistaril] 50 - 100 mg PO Q6H PRN 09/20/16 09/20/16 Oxybutynin Chloride [Ditropan Xl] 10 mg PO DAILY 09/20/16 09/20/16 lamoTRIgine [Lamictal] 100 mg PO DAILY 09/20/16 09/20/16 traZODone [TraZODone] 50 mg PO HS 09/20/16 09/20/16 Previous Rx's Medication Instructions Recorded Ciprofloxacin [Cipro] 500 mg PO BID #20 tablet 09/23/16 Clotrimazole 1% CRM [Lotrimin 1%] 1 appl TP BID 14 Days tube 09/23/16 Doxycycline 100 mg PO BID #20 capsule 09/23/16 Fluconazole [Diflucan] 100 mg PO DAILY #24 tablet 09/23/16 Insulin Glargine,Hum.rec.anlog 40 unit SQ HS #0 09/23/16 [Lantus Solostar] HYDROcodone/Acet 5/325 mg [[place] 1 - 2 tab PO Q6H PRN #10 tab 04/09/17 5-325 mg] Allergies Allergy/AdvReac Type Severity Reaction Status Date / Time Penicillins Allergy Hives Verified 09/20/16 12:06 Constitutional: Denies: fever, chills, weakness, weight change Eyes: Denies: eye pain, eye discharge, vision change ENT ED: Denies: ear pain, throat pain, dental pain, hearing loss, epistaxis, congestion, dysphagia Cardiovascular: Denies: chest pain, palpitations, dyspnea on exertion, edema, syncope Respiratory: Denies: cough, dyspnea, wheezes, hemoptysis, stridor Gastrointestinal: Denies: abdominal pain, nausea, vomiting, diarrhea, constipation, hematemesis, melena, hematochezia Genitourinary: Denies: dysuria, frequency, hematuria, discharge Musculoskeletal: Denies: back pain, neck pain, arthralgia, myalgia Integumentary: Reports: rash (Red and draining rash, the patient is unable to view most of it due to body habitus.), pruritus. Denies: abrasion, lesions Neurological: Denies: headache, weakness, numbness, paresthesias, confusion, abnormal gait, vertigo Psychiatric: Denies: anxiety, depression, suicidal thoughts, homicidal thoughts , auditory hallucinations, visual hallucinations Endocrine: Denies: fatigue Hematological/Lymphatic: Denies: easy bleeding, easy bruising Allergic/Immunologic: Denies: facial swelling, urticaria Past Medical History - Past Medical History Medical history: Reports: asthma, coronary artery disease, diabetes, hyperlipidemia, hypertension, renal disease Surgical history: Reports: , cholecystectomy, hysterectomy Psychiatric history: Reports: anxiety, depression - Social History Smoking Status: Current every day smoker Smokeless Tobacco Status: No Alcohol use: Reports: rarely Drug use: Reports: none Physical Exam - General Limitations: physical limitation (Due to body habitus and obesity. States she has difficulty ambulating due to pain in her knees.) General appearance: alert, in no apparent distress Course Vital Signs Temperature 98.1 F 11/01/17 09:34 Pulse Rate 81 11/01/17 09:34 Respiratory Rate 18 11/01/17 09:34 Blood Pressure 176/88 11/01/17 09:34 O2 Sat by Pulse Oximetry 92 11/01/17 09:34 Temperature 98.1 F 11/01/17 09:34 Pulse Rate 74 11/01/17 10:19 Respiratory Rate 18 11/01/17 10:19 Blood Pressure 143/68 11/01/17 10:19 O2 Sat by Pulse Oximetry 93 11/01/17 10:19 Oxygen Delivery Oxygen Delivery Room Air Medical Decision Making - Lab Data Result diagrams: 11/01/17 10:17 11/01/17 10:17 Lab Results 11/01/17 11/01/17 11/01/17 Range/Units 10:17 10:17 10:17 WBC 13.7 H (4.3-11.1) K/mcL RBC 4.43 (3.82-4.97) M/mcL Hgb 12.9 (11.5-15.4) g/dL Hct 38.1 (35.3-44.9) % MCV 86.0 (83.0-100.0) fL MCH 29.1 (28.0-33.3) pg MCHC 33.9 (31.6-35.5) g/dL RDW 14.6 H (11.5-14.5) % Plt Count 267 (140-400) K/mcL MPV 9.0 L (9.4-12.4) fL Immature Gran % 0.7 (0-4) % Seg Neutrophils % 71.3 % Lymphocytes % 20.0 % Monocytes % 4.7 % Eosinophils % 2.8 % Basophils % 0.5 % Neutrophils # 9.8 H (1.6-8.9) K/mcL Lymphocytes # 2.7 (0.6-4.6) K/mcL Monocytes # 0.6 (0.0-1.3) K/mcL Eosinophils # 0.4 (0.0-0.6) K/mcL Basophils # 0.1 (0.0-0.2) K/mcL ESR 88 H (0-15) mm/hr Sodium 135 L (136-145) mEq/L Potassium 3.6 (3.5-5.1) mEq/L Chloride 102 (98-107) mEq/L Carbon Dioxide 24 (23-29) mEq/L BUN 26 H (6-20) mg/dL Creatinine 1.35 H (0.60-1.20) mg/dL Est GFR ( Amer) 49 L (> 60) Est GFR (Non-Af Amer) 41 L (> 60) BUN/Creatinine Ratio 19 (6-26) Glucose 295 H (70-105) mg/dL Calculated Osmolality 296 (280-300) Lactic Acid (0.5-2.2) mmol/L Calcium 8.7 (8.6-10.3) mg/dL Total Bilirubin 0.4 (0.3-1.0) mg/dL AST 8 L (13-39) Units/L ALT 8 (7-52) Units/L Alkaline Phosphatase 82 (34-104) Units/L C-Reactive Protein (Less than 10) mg/L Serum Total Protein 6.7 (6.4-8.9) g/dL Albumin 3.7 (3.5-5.7) g/dL Globulin 3.0 (2.4-3.5) g/dL Albumin/Globulin Ratio 1.2 (1.1-2.2) Urine Color (Yellow) Urine Clarity (Clear) Urine pH (5.0-8.0) pH Units Ur Specific [place] (1.010-1.025) Urine Protein (Neg-Trace) mg/dL Urine Glucose (UA) (Normal) mg/dL Urine Ketones (Negative) mg/dL Urine Blood (Negative) Urine Nitrite (Negative) Urine Bilirubin (Negative) Urine Urobilinogen (Normal) mg/dL Ur Leukocyte Esterase (Negative) Urine Microscopic RBC (0-3) per hpf Urine Microscopic WBC (0-3) per hpf Ur Squamous Epith Cells (None-Few) per lpf Urine Bacteria (None-Few) per hpf Hyaline Casts (None-Few) per lpf Ur Culture Indicated? (NO) 11/01/17 11/01/17 11/01/17 Range/Units 10:17 10:17 10:55 WBC (4.3-11.1) K/mcL RBC (3.82-4.97) M/mcL Hgb (11.5-15.4) g/dL Hct (35.3-44.9) % MCV (83.0-100.0) fL MCH (28.0-33.3) pg MCHC (31.6-35.5) g/dL RDW (11.5-14.5) % Plt Count (140-400) K/mcL MPV (9.4-12.4) fL Immature Gran % (0-4) % Seg Neutrophils % % Lymphocytes % % Monocytes % % Eosinophils % % Basophils % % Neutrophils # (1.6-8.9) K/mcL Lymphocytes # (0.6-4.6) K/mcL Monocytes # (0.0-1.3) K/mcL Eosinophils # (0.0-0.6) K/mcL Basophils # (0.0-0.2) K/mcL ESR (0-15) mm/hr Sodium (136-145) mEq/L Potassium (3.5-5.1) mEq/L Chloride (98-107) mEq/L Carbon Dioxide (23-29) mEq/L BUN (6-20) mg/dL Creatinine (0.60-1.20) mg/dL Est GFR ( Amer) (> 60) Est GFR (Non-Af Amer) (> 60) BUN/Creatinine Ratio (6-26) Glucose (70-105) mg/dL Calculated Osmolality (280-300) Lactic Acid 2.5 H (0.5-2.2) mmol/L Calcium (8.6-10.3) mg/dL Total Bilirubin (0.3-1.0) mg/dL AST (13-39) Units/L ALT (7-52) Units/L Alkaline Phosphatase (34-104) Units/L C-Reactive Protein 85 H (Less than 10) mg/L Serum Total Protein (6.4-8.9) g/dL Albumin (3.5-5.7) g/dL Globulin (2.4-3.5) g/dL Albumin/Globulin Ratio (1.1-2.2) Urine Color Yellow (Yellow) Urine Clarity Turbid A (Clear) Urine pH 6.0 (5.0-8.0) pH Units Ur Specific [place] 1.015 (1.010-1.025) Urine Protein 100 H (Neg-Trace) mg/dL Urine Glucose (UA) Normal (Normal) mg/dL Urine Ketones Negative (Negative) mg/dL Urine Blood Small H (Negative) Urine Nitrite Negative (Negative) Urine Bilirubin Negative (Negative) Urine Urobilinogen Normal (Normal) mg/dL Ur Leukocyte Esterase Large H (Negative) Urine Microscopic RBC 3-5 H (0-3) per hpf Urine Microscopic WBC TNTC H (0-3) per hpf Ur Squamous Epith Cells Moderate H (None-Few) per lpf Urine Bacteria Few (None-Few) per hpf Hyaline Casts None Seen (None-Few) per lpf Ur Culture Indicated? YES A (NO) Attestation Statement - Attestation Attestation: I examined this patient and my medical decision-making was reviewed with the PA. I agree with the documented findings, disposition and treatment plan as described except to the extent set forth below. 57 year old miko presents to the ED with pannus infection and states taht she is diabetic and has had this infection in her pannus from three years ago. WE will treat with antifigunal IV and IV vanco for mrsa and admit ot medicine.
[2017-11-01] MEDS: Fluconazole 100 MG/50 ML 100 MG/50 ML BAG IVPB SCH (13:17)
[2017-11-01] MEDS: Clotrimazole 1% CRM 15 GM TUBE TP SCH ×2 (13:17→20:05)
[2017-11-01] MEDS ORDERED: hydrOXYzine pamoate 25 MG CAPSULE PO PRN (13:21)
[2017-11-01] MEDS ORDERED: *HR* HYDROcodone/Acet 5/325 mg TABLET PO PRN (13:21)
[2017-11-01] MEDS ORDERED: clonazePAM 0.5 MG TABLET PO PRN (13:21)
[2017-11-01] MEDS ORDERED: *HR* Dextrose 50 % in Water (Syg) 50 ML SYRINGE IVP PRN (13:24)
[2017-11-01] MEDS ORDERED: D5% in Water 1,000 ML IVC PRN (13:24)
[2017-11-01] MEDS ORDERED: Naloxone 0.4 MG/ML INJ IVP PRN (13:24)
[2017-11-01] MEDS ORDERED: Dextrose Gel 15 GM/37.5 ML TUBE PO PRN ×2 (13:24)
[2017-11-01] MEDS ORDERED: Vancomycin 1,750 MG in 0.9 % Sodium Chloride 250 ML IVPB SCH (14:00)
--- NOTE | 2017-11-01 14:17 | Internal Med History&Physical ---
<Yesenia Teran - Last Filed: 11/01/17 16:10> Date of Encounter: 11/01/17 Internal Medicine - H&P: HPI History of present illness: Ms. Brothers is a 57 year old female Internal Medicine - H&P: Meds Carvedilol [Coreg] 12.5 mg PO BID 10/31/15 [History] Cholecalciferol (Vitamin D3) [Vitamin D3] 50,000 unit PO TU 10/31/15 [History] FLUoxetine HCl [Prozac] 40 mg PO DAILY 10/31/15 [History] Furosemide [Lasix] 10 mg PO DAILY 10/31/15 [History] Insulin ASPART [NovoLOG] 18 units SQ TIDWM MDD Sliding Scale 10/31/15 [History] Lovastatin [Altoprev] 40 mg PO DAILY 10/31/15 [History] Omeprazole 20 mg PO DAILY 10/31/15 [History] Triamterene/HCTZ 37.5/25mg [Dyazide] 1 tab PO DAILY #0 10/31/15 [History] Albuterol Sulfate [Proair Hfa] 2 puff IH Q4H PRN 06/06/16 [History] Aspirin 81 mg PO DAILY 06/06/16 [History] Promethazine [Phenergan] 25 mg PO Q6H PRN 06/06/16 [History] Ferrous Sulfate 325 mg PO DAILY 09/20/16 [History] Gabapentin 800 mg PO QID 09/20/16 [History] HydrOXYzine Pamoate [Vistaril] 50 - 100 mg PO Q6H PRN 09/20/16 [History] lamoTRIgine [Lamictal] 200 mg PO DAILY 09/20/16 [History] traZODone [TraZODone] 50 mg PO HS 09/20/16 [History] HYDROcodone/Acet 5/325 mg [[place] 5-325 mg] 1 - 2 tab PO Q6H PRN #10 tab [Rx] Insulin Glargine,Hum.rec.anlog [Lantus Solostar] 74 unit SQ HS 11/01/17 [History ] Nystatin [Nystatin] 1 appl TP BID 11/01/17 [History] clonazePAM [Klonopin] 0.5 mg PO BID PRN 11/01/17 [History] metFORMIN [Glucophage] 500 mg PO BID 11/01/17 [History] 3 Allergy/AdvReac Type Severity Reaction Status Date / Time Penicillins Allergy Hives Verified 09/20/16 12:06 All Systems PM: A 10-system review of systems was performed and is negative for pertinent findings except as documented above in the HPI. - Constitutional Vitals: Temp Pulse Resp BP Pulse Ox 99 F 71 18 130/69 95 11/01/17 12:25 11/01/17 11:50 11/01/17 12:25 11/01/17 12:25 11/01/17 11:50 Internal Med - H&P Results - Labs CBC & Chem 7: 11/01/17 10:17 11/01/17 10:17 - Attending Attestation Examined the patient. Reviewed the note and agree with the plan of care - Assessment and plan (1) UTI (urinary tract infection) Current Visit: Yes Status: Acute Qualifiers: Urinary tract infection type: acute cystitis Hematuria presence: with hematuria Qualified Code(s): N30.01 - Acute cystitis with hematuria (2) Abdominal wall cellulitis Current Visit: Yes Status: Acute (3) Poor personal hygiene Current Visit: Yes Status: Chronic (4) Candidal intertrigo Current Visit: Yes Status: Acute (5) Diabetes mellitus Current Visit: Yes Status: Chronic Qualifiers: Diabetes mellitus type: type 2 Diabetes mellitus senior living insulin use: with senior living use Diabetes mellitus complication status: with kidney complications Diabetes mellitus complication detail: with chronic kidney disease Chronic kidney disease stage: stage 3 (moderate) Qualified Code(s): E11.22 - Type 2 diabetes mellitus with diabetic chronic kidney disease; N18.3 - Chronic kidney disease, stage 3 (moderate); N18.3 - Chronic kidney disease, stage 3 (moderate); Z79.4 - [facility] (current) use of insulin; Z79.4 - [facility] (current) use of insulin; 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; 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 (6) Chronic kidney disease, stage 3 Current Visit: Yes Status: Chronic (7) DVT prophylaxis Current Visit: Yes Status: Acute (8) Morbid obesity with BMI of 40.0-44.9, adult Current Visit: Yes Status: Chronic - Time Spent With Patient Total time spent is greater than 50% in coordination of care (as documented) at patient's floor/unit and/or counseling patient: <Sadi Hi - Last Filed: 11/01/17 19:49> Date of Encounter: 11/01/17 Time of Encounter: 14:06 Internal Medicine - H&P: HPI Chief complaint: Left groin cellulitis, candidal intertrigo Admitted From: Home Plans for Post Hospital Care: Home History of present illness: Ms. Brothers is a 57 year old female with a PMH of asthma, CAD, DM, HTN, HLD and CKD stage III. Presents today with complaints of redness and burning to her left groin. She states that these symptoms began yesterday has been getting progressively worse. She was recently admitted and treated for candidal intertrigo and left groin cellulitis. During her last admission the candidal intertrigo was throughout her bilateral thighs and groin as well as abdominal folds and abdominal. This required a consultation from infectious disease to assist with treatment. She was discharged home on 09/23/16 on a four-week course of oral Doxy and ciprofloxacin, clotrimazole and fluconazole. She reports that it completely cleared up and returned yesterday evening. Past Med Surg Social Fam HX - Past Medical History Medical history: asthma, coronary artery disease, diabetes, hyperlipidemia, hypertension, renal disease Psychiatric history: anxiety, depression - Past Surgical History Surgical History: , cholecystectomy, hysterectomy - Social History Smoking Status: Current every day smoker Packs per day: 1.5 Smokeless Tobacco Status: No Alcohol use: rarely Drug use: none - Family History Mother Living Status: Still Living Father Living Status: Still Living Hx Family Cardiac Disorders: Yes (dad had HI) Hx Family Respiratory Disorders: No Hx Family Cancer: No Hx Family GI Disorders: No Hx Family Endocrine Disorder: No Hx Family Neuromuscular Disorders: No Hx Family Neurologic Disorders: No Hx Family HEENT Disorders: No Hx Family Autoimmune Disorders: No All Systems PM: A 10-system review of systems was performed and is negative for pertinent findings except as documented above in the HPI. Review of systems: REVIEW OF SYSTEMS GENERAL: Negative for any nausea, vomiting, fevers, chills, or weight loss. NEUROLOGIC: Negative for any blurry vision, blind spots, double vision, facial asymmetry, dysphagia, dysarthria, hemiparesis, hemisensory deficits, vertigo, ataxia. HEENT: Negative for any head trauma, neck trauma, neck stiffness, photophobia, phonophobia, sinusitis, rhinitis. CARDIAC: Negative for any chest pain, dyspnea on exertion, paroxysmal nocturnal dyspnea, peripheral edema. PULMONARY: Negative for any shortness of breath, wheezing, COPD, or TB exposure. GASTROINTESTINAL: Negative for any abdominal pain, nausea, vomiting, bright red blood per rectum, melena. GENITOURINARY: Negative for any dysuria, hematuria, incontinence. INTEGUMENTARY: Positive for erythematous, moist candidal rash in the left groin and left lower abdomen RHEUMATOLOGIC: Negative for any joint pains, photosensitive rashes, history of vasculitis or kidney problems. HEMATOLOGIC: Negative for any abnormal bruising, frequent infections or bleeding. - Constitutional Vitals: Temp Pulse Resp BP Pulse Ox 99 F 71 18 130/69 95 11/01/17 12:25 11/01/17 11:50 11/01/17 12:25 11/01/17 12:25 11/01/17 11:50 General appearance: Present: cooperative, A&O X 3, no acute distress, answers questions appropriately Exam: PHYSICAL EXAMINATION: GENERAL: The patient is a well-developed, well-nourished male in no apparent distress. He is alert and oriented x3. HEENT: Head is normocephalic and atraumatic. Extraocular muscles are intact. Pupils are equal, round, and reactive to light and accommodation. NECK: Supple. No carotid bruits. No lymphadenopathy or thyromegaly. LUNGS: Clear to auscultation. HEART: Regular rate and rhythm without murmur. ABDOMEN: Soft, nontender, and nondistended. Positive bowel sounds. No hepatosplenomegaly was noted. EXTREMITIES: Without any cyanosis, clubbing, rash, lesions or edema. NEUROLOGIC: Cranial nerves II through XII are grossly intact. PSYCHIATRIC: Flat affect, but denies suicidal or homicidal ideations. SKIN: Erythematous, moist painful candidal intertriginous rash in the left groin extending from left symphysis pubis to left hip, and under the left panniculus Internal Med - H&P Results - Labs CBC & Chem 7: 11/01/17 10:17 11/01/17 10:17 - Assessment and plan (1) Candidal intertrigo Current Visit: Yes Status: Acute Assessment and plan: Candidal intertrigo located along the bilateral upper thighs, bilateral groins, bilateral abdominal folds and the lower portion of the panniculus. She was recently admitted and treated for the same issue. She responded positively to cefepime and vancomycin as well as fluconazole, clotrimazole and nystatin powder. She reports that the cellulitis and candidal intertrigo and gone away completely following her prior stay and that it had returned yesterday. However upon assessment of bilateral thighs, bilateral groins and abdominal folds I believe this is unlikely that she has had resolution of previous candidal and cellulitis infection. She will be treated with cefepime, vancomycin, fluconazole, clotrimazole and nystatin powder. Consider infectious disease consult if no improvement as they were assisting with the case during the last admission. Keep area dry and provide rotator circulation Due to history of renal disease closely monitor renal function given the fact that we are placing her on broad-spectrum antibiotics Blood culture results pending-CBC D, BMP in the morning Hydrocodone for pain management (2) Abdominal wall cellulitis Current Visit: Yes Status: Acute (3) UTI (urinary tract infection) Current Visit: Yes Status: Acute Assessment and plan: Asymptomatic UTI. Urinalysis reveals turbid urine with small amount of blood and large leukocyte esterase Already on cefepime for treatment of cellulitis should cover typical organisms associated with UTI Urine culture sent-follow culture results Qualifiers: Urinary tract infection type: acute cystitis Hematuria presence: with hematuria Qualified Code(s): N30.01 - Acute cystitis with hematuria (4) Chronic kidney disease, stage 3 Current Visit: Yes Status: Chronic Assessment and plan: History of CKD stage III. BUN, creatinine and GFR at patient's baseline Continue to monitor renal function IVF Avoid nephrotoxins (5) Diabetes mellitus Current Visit: Yes Status: Chronic Assessment and plan: Resume basal insulin at home dose Resume prandial insulin at home dose low sliding scale insulin coverage Qualifiers: Diabetes mellitus type: type 2 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 terminal insulin use: with superintendent terminal use Diabetes mellitus complication status: with kidney complications Diabetes mellitus complication detail: with chronic kidney disease Chronic kidney disease stage: stage 3 (moderate) Qualified Code(s): E11.22 - Type 2 diabetes mellitus with diabetic chronic kidney disease; N18.3 - Chronic kidney disease, stage 3 (moderate); N18.3 - Chronic kidney disease, stage 3 (moderate); 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
[2017-11-01] MEDS: 0.9 % Sodium Chloride 1,000 ML IVC SCH ×2 (15:05→21:30)
[2017-11-01] MEDS ORDERED: INSULIN ASPART 18 UNIT SQ SCH (17:00)
[2017-11-01] MEDS: Insulin LISPRO 300 UNITS/3 ML VIAL SQ SCH (17:33)
[2017-11-01] MEDS: Cefepime HCl 1,000 MG in Water for inj. (sterile) 20 ML 10 ML IVP SCH (17:35)
[2017-11-01] MEDS: *HR* Heparin 5,000 UNIT/ML VIAL SQ SCH (17:36)
[2017-11-01] MEDS: Gabapentin 400 MG CAPSULE PO SCH ×2 (17:36→20:31)
[2017-11-01] MEDS: Nystatin POWDER 30 GM BOTTLE TP SCH ×2 (17:44→20:33)
[2017-11-01] MEDS: Insulin DETEMIR 100 UNIT/ML X5UNITS SQ SCH (20:29)
[2017-11-01] MEDS: traZODone 50 MG TABLET PO SCH (20:32)
[2017-11-01] MEDS ORDERED: Insulin LISPRO 300 UNITS/3 ML VIAL SQ SCH (21:00)
[2017-11-02] MEDS: Cefepime HCl 1,000 MG in Water for inj. (sterile) 20 ML 10 ML IVP SCH ×3 (03:20→20:25)
[2017-11-02 05:17] LABS: Hematocrit 34.3 % (35.3-44.9); Hemoglobin 11.4 g/dL (11.5-15.4); Mean Corpuscular HGB Conc 33.2 g/dL (31.6-35.5); Mean Corpuscular Hemoglobin 28.6 pg (28.0-33.3); Mean Corpuscular Volume 86.2 fL (83.0-100.0); Mean Platelet Volume 9.4 fL (9.4-12.4); Platelet Count 244 K/mcL (140-400); Red Blood Count 3.98 M/mcL (3.82-4.97); Red Cell Distribution Width 14.6 % (11.5-14.5)
[2017-11-02] MEDS: *HR* Heparin 5,000 UNIT/ML VIAL SQ SCH ×2 (06:07→18:15)
[2017-11-02] MEDS: FLUoxetine 20 MG CAPSULE PO SCH (09:00)
[2017-11-02] MEDS: lamoTRIgine 100 MG TABLET PO SCH (09:00)
[2017-11-02] MEDS: Gabapentin 400 MG CAPSULE PO SCH ×4 (09:00→20:25)
[2017-11-02] MEDS: Aspirin 81 MG TAB.CHEW PO SCH (09:00)
[2017-11-02] MEDS: Furosemide 20 MG TABLET PO SCH (09:01)
[2017-11-02] MEDS: Nystatin POWDER 30 GM BOTTLE TP SCH ×3 (09:04→20:27)
[2017-11-02] MEDS: Clotrimazole 1% CRM 15 GM TUBE TP SCH ×2 (09:04→20:26)
[2017-11-02] MEDS: Insulin LISPRO 300 UNITS/3 ML VIAL SQ SCH ×4 (09:05→20:24)
[2017-11-02] MEDS: Fluconazole 100 MG/50 ML 100 MG/50 ML BAG IVPB SCH (09:19)
--- NOTE | 2017-11-02 14:15 | Internal Med Progress Note ---
Date of Encounter: 11/02/17 Time of Encounter: 14:13 - Assessment and plan (1) Candidal intertrigo Current Visit: Yes Status: Acute Assessment and plan: recurrent. Was hospitalized 09/2016 for same issues. Evaluated by infectious disease who noted candidal intertrigo with cellulitis. Now with recurrent symptoms located along the bilateral upper thighs, bilateral groins, bilateral abdominal folds and the lower portion of the panniculus. Cont cefepime, vancomycin, fluconazole (topical clotrimazole and nystatin powder). Continue local wound care and encouraged to keep skin off skin. ID consulted (2) Abdominal wall cellulitis Current Visit: Yes Status: Acute Assessment and plan: recurrent. Plan as noted above (3) UTI (urinary tract infection) Current Visit: Yes Status: Acute Assessment and plan: UA indicative of UTI. On cefepime as noted above. Follow urine culture and narrow ATB accordingly. Qualifiers: Urinary tract infection type: acute cystitis Hematuria presence: with hematuria Qualified Code(s): N30.01 - Acute cystitis with hematuria (4) Poor personal hygiene Current Visit: Yes Status: Chronic Assessment and plan: Likely contributing to recurrent cellulitis. (5) Diabetes mellitus Current Visit: Yes Status: Chronic Assessment and plan: per hx. COnt home long acting. Blood sugars elevated on 11/02 review. Increase SSI to medium scale. Monitor blood sugar and titrate PRN Qualifiers: Diabetes mellitus type: type 2 Diabetes mellitus education adviser insulin use: with education adviser use Diabetes mellitus complication status: with kidney complications Diabetes mellitus complication detail: with chronic kidney disease Chronic kidney disease stage: stage 3 (moderate) Qualified Code(s): E11.22 - Type 2 diabetes mellitus with diabetic chronic kidney disease; N18.3 - Chronic kidney disease, stage 3 (moderate); N18.3 - Chronic kidney disease, stage 3 (moderate); Z79.4 - correction (current) use of insulin; Z79.4 - correction (current) use of insulin; Z79.4 - candle wicker (current) use of insulin; Z79.4 - candle wicker (current) use of insulin (6) Chronic kidney disease, stage 3 Current Visit: Yes Status: Chronic Assessment and plan: History of CKD stage III. BUN, creatinine and GFR at baseline. Avoid nephrotoxins as possible. Monitor repeat renal function. (7) Morbid obesity with BMI of 40.0-44.9, adult Current Visit: Yes Status: Chronic Assessment and plan: BMI 41; lifestyle/dietary modifications encouraged (8) DVT prophylaxis Current Visit: Yes Status: Acute Assessment and plan: Heparin - Time Spent With Patient Total time spent is greater than 50% in coordination of care (as documented) at patient's floor/unit and/or counseling patient: - Subjective Interval history: Seen and examined at bedside. Patient is new to me, information obtained from chart review and patient report. She is complaining of upper thighs/groin burning sensation. Overall says improved from yesterday. She reports medication compliance for recent cellulitis and yeast. No dysuria. No loose stool. Advised on proper hygiene; cleansing affected areas with soap and water. Pat dry and keeping pillowcase between abdominal folds to keep skin on skin. - Constitutional Vitals: Temp Pulse Resp BP Pulse Ox 98.3 F 66 15 145/85 95 11/02/17 10:58 11/02/17 10:58 11/02/17 10:58 11/02/17 10:58 11/02/17 10:58 General appearance: Present: cooperative, A&O X 3, morbidly obese, no acute distress, answers questions appropriately - Head Head exam: Present: atraumatic, normocephalic - Eye Eye exam: Present: PERRL, conjuntiva pink, sclera anicteric Pupils: Present: PERRL - Neck Neck exam general surgery: Present: supple, trachea midline. Absent: lymphadenopathy - Respiratory Respiratory exam: Present: CTAB. Absent: accessory muscle use, rales, rhonchi, wheezes - Cardiovascular Cardiovascular exam: Present: RRR, +S1, +S2. Absent: diastolic murmur, gallop, rubs, systolic murmur - GI/Abdominal GI/Abdominal exam: Present: normal bowel sounds, soft, no peritoneal signs. Absent: distended, tenderness - Extremities Exam Extremities exam: Present: pedal edema, warm, radial pulses palpable and symmetrical. Absent: calf tenderness, cyanotic - Neurological Exam Neurological exam: Present: CN II-XII intact, oriented X3, no focal deficits. Absent: pronater drift, facial droop, speech deficit - Skin Skin exam: Present: dry, intact Additional comments: Upper thighs bilateral groin and lower abdomen with erythematous, warm and tender skin. Internal Medicine: Result - Labs CBC & Chem 7: 11/02/17 04:15 11/01/17 10:17 Labs: Short CBC 11/02/17 Range/Units 04:15 WBC 10.5 (4.3-11.1) K/mcL Hgb 11.4 L D (11.5-15.4) g/dL Hct 34.3 L (35.3-44.9) % Plt Count 244 (140-400) K/mcL Consult Discharge Plan - Plan Referrals: Kavitha Yu DO [Primary Care Provider] -
[2017-11-02] MEDS: 0.9 % Sodium Chloride 1,000 ML IVC SCH (18:17)
[2017-11-02] MEDS: Insulin DETEMIR 100 UNIT/ML X5UNITS SQ SCH (20:23)
[2017-11-02] MEDS: traZODone 50 MG TABLET PO SCH (20:26)
[2017-11-03] MEDS: Cefepime HCl 1,000 MG in Water for inj. (sterile) 20 ML 10 ML IVP SCH ×3 (02:47→20:37)
[2017-11-03 04:57] LABS: Hematocrit 33.3 % (35.3-44.9); Hemoglobin 11.2 g/dL (11.5-15.4); Mean Corpuscular HGB Conc 33.6 g/dL (31.6-35.5); Mean Corpuscular Hemoglobin 28.4 pg (28.0-33.3); Mean Corpuscular Volume 84.5 fL (83.0-100.0); Mean Platelet Volume 9.3 fL (9.4-12.4); Platelet Count 227 K/mcL (140-400); Red Blood Count 3.94 M/mcL (3.82-4.97); Red Cell Distribution Width 14.5 % (11.5-14.5)
[2017-11-03 05:25] LABS: BUN/Creatinine Ratio 17 (6-26); Blood Urea Nitrogen 17 mg/dL (6-20); Calcium 8.3 mg/dL (8.6-10.3); Carbon Dioxide 23 mEq/L (23-29); Chloride 108 mEq/L (98-107); Glucose 202 mg/dL (70-105); Osmolality,Calculated 295 (280-300); Potassium 3.8 mEq/L (3.5-5.1); Sodium 139 mEq/L (136-145); eGFR For African Americans > 60 (> 60); eGFR For Non-African Americans 56 (> 60)
[2017-11-03] MEDS: *HR* Heparin 5,000 UNIT/ML VIAL SQ SCH ×2 (05:54→17:50)
--- NOTE | 2017-11-03 08:17 | Infectious Disease Consult ---
Date of Encounter: 11/03/17 Time of Encounter: 08:15 Assessment and Plan (1) Cellulitis Status: Acute Assessment and plan: cellulitis present in the panniculus and bilateral groin areas. causitive organism unknown. currently on vancomycin/cefepime Creatinine clearance: 82 11/01/17 prelim blood cultures x2 negative Plan: continue vancomycin and cefepime goal vancomycin trough 10 duration of treatment likely 10-14 days, may consider switching to oral options if clinically better prior to d/c Qualifiers: Site of cellulitis: trunk Site of cellulitis of trunk: abdominal wall Qualified Code(s): L03.311 - Cellulitis of abdominal wall (2) UTI (urinary tract infection) Status: Acute Assessment and plan: Urine culture positive for E. coli and VRE past urine cultures positive for E.Coli ESBL, proteus Mirabilis, klebsiella, citrobacter freundii, enterobacter cloacae. Qualifiers: Urinary tract infection type: acute cystitis Hematuria presence: with hematuria Qualified Code(s): N30.01 - Acute cystitis with hematuria (3) Diabetes mellitus Status: Chronic Assessment and plan: Lost A1 C from 09/29/17 was 7.8 Qualifiers: Diabetes mellitus type: type 2 Diabetes mellitus vocational childcare teacher insulin use: with custodial use Diabetes mellitus complication status: with kidney complications Diabetes mellitus complication detail: with chronic kidney disease Chronic kidney disease stage: stage 3 (moderate) Qualified Code(s): E11.22 - Type 2 diabetes mellitus with diabetic chronic kidney disease; N18.3 - Chronic kidney disease, stage 3 (moderate); N18.3 - Chronic kidney disease, stage 3 (moderate); Z79.4 - senior care (current) use of insulin; Z79.4 - senior care (current) use of insulin; Z79.4 - senior care (current) use of insulin; Z79.4 - long term (current) use of insulin (4) Chronic kidney disease, stage 3 Status: Chronic Assessment and plan: sees Dr. Rod. kidney function stable at this time. (5) Morbid obesity with BMI of 40.0-44.9, adult Status: Chronic Assessment and plan: Lifestyle modifications advised. Infectious Disease HPI - Data of Consult Patient: known to practice within the last 3 years Consult date: 11/03/17 Requesting Physician: Genaro Carver Primary Care Provider: Kavitha Yu, DO - Consult Narrative Reason for consult: candidal intertrigo and cellulitis History of present illness: Ms. Brothers is a 57 year old female arrive to the hospital on 11/01/17 with chief complaint of redness and burning in her left groin since the day prior and progressively getting worse. Infectious disease was consult it on 11/03/17 for candidal intertrigo and cellulitis. She has a past medical history of asthma, CAD, DM, hypertension, HLD, CKD stage III. Of note, patient was recently admitted and treated for candidal intertrigo and left groin cellulitis. Lost hospital admission was from 09/20/16- 09/23/16. At that time, she was treated for bilateral groin and lower abdominal cellulitis. She was started on IV fluconazole, vancomycin, Cefepime. 1/2 cultures were positive for staph Epiodermidis. Urine culture grew klebsiella pneumoniae. He was discharged on oral fluconazole to complete a four-week course, along with oral doxycycline and ciprofloxacin to complete a two-week course. Symptoms were dramatically improved upon discharge to [facility]. Her cellulitis symptoms returned the day prior to admission. Upon admission, her vitals were as follows: temperature 98.1, heart rate 81, respirations 18, blood pressure 176/88, pulse ox 92% on room air. Labs were as follows: WBC 13.7, neutrophils 9.8, ESR 88, CRP 85, creatinine 1.35, lactic acid 2.5, UA showed normal amount of blood, large amount of leukocyte esterase, RBC, numerous WBC. Preliminary blood cultures from 11/01/17 are negative. Urine culture is positive for E. coli and VRE. past urine cultures positive for E.Coli ESBL, proteus Mirabilis, klebsiella, citrobacter freundii, enterobacter cloacae. She is currently being treated with cefepime, vancomycin, fluconazole, clomitrazole, nystatin powder. Today, patient reports pain in her left groin area. She denies nausea, vomiting , diarrhea, fever, chills, chest pain, shortness of breath, hematuria, pain or burning with urination. CC: Genaro Carver Past Med Surg Social Fam HX - Past Medical History Medical history: asthma, coronary artery disease, diabetes, hyperlipidemia, hypertension, renal disease Psychiatric history: anxiety, depression - Past Surgical History Surgical History: , cholecystectomy, hysterectomy - Social History Smoking Status: Current every day smoker Packs per day: 1.5 Smokeless Tobacco Status: No Alcohol use: rarely Drug use: none - Family History Mother Living Status: Still Living Father Living Status: Still Living Hx Family Cardiac Disorders: Yes (dad had RI) Hx Family Respiratory Disorders: No Hx Family Cancer: No Hx Family GI Disorders: No Hx Family Endocrine Disorder: No Hx Family Neuromuscular Disorders: No Hx Family Neurologic Disorders: No Hx Family HEENT Disorders: No Hx Family Autoimmune Disorders: No Infectious Disease-CN:Meds Carvedilol [Coreg] 12.5 mg PO BID 10/31/15 [History] Cholecalciferol (Vitamin D3) [Vitamin D3] 50,000 unit PO TU 10/31/15 [History] FLUoxetine HCl [Prozac] 40 mg PO DAILY 10/31/15 [History] Furosemide [Lasix] 10 mg PO DAILY 10/31/15 [History] Insulin ASPART [NovoLOG] 18 units SQ TIDWM MDD Sliding Scale 10/31/15 [History] Lovastatin [Altoprev] 40 mg PO DAILY 10/31/15 [History] Omeprazole 20 mg PO DAILY 10/31/15 [History] Triamterene/HCTZ 37.5/25mg [Dyazide] 1 tab PO DAILY #0 10/31/15 [History] Albuterol Sulfate [Proair Hfa] 2 puff IH Q4H PRN 06/06/16 [History] Aspirin 81 mg PO DAILY 06/06/16 [History] Promethazine [Phenergan] 25 mg PO Q6H PRN 06/06/16 [History] Ferrous Sulfate 325 mg PO DAILY 09/20/16 [History] Gabapentin 800 mg PO QID 09/20/16 [History] HydrOXYzine Pamoate [Vistaril] 50 - 100 mg PO Q6H PRN 09/20/16 [History] lamoTRIgine [Lamictal] 200 mg PO DAILY 09/20/16 [History] traZODone [TraZODone] 50 mg PO HS 09/20/16 [History] HYDROcodone/Acet 5/325 mg [[place] 5-325 mg] 1 - 2 tab PO Q6H PRN #10 tab [Rx] Insulin Glargine,Hum.rec.anlog [Lantus Solostar] 74 unit SQ HS 11/01/17 [History ] Nystatin [Nystatin] 1 appl TP BID 11/01/17 [History] clonazePAM [Klonopin] 0.5 mg PO BID PRN 11/01/17 [History] metFORMIN [Glucophage] 500 mg PO BID 11/01/17 [History] 3 Allergy/AdvReac Type Severity Reaction Status Date / Time Penicillins Allergy Hives Verified 09/20/16 12:06 All systems: reviewed and no additional remarkable complaints except as stated Exam - Constitutional Vitals: Temp Pulse Resp BP Pulse Ox 98.2 F 60 16 137/83 95 11/03/17 07:28 11/03/17 07:28 11/03/17 07:28 11/03/17 07:28 11/03/17 07:28 General appearance: morbidly obese, no acute distress Exam: Patient was sitting up in bed comfortably. She was very anxious and tearful about her condition. - Head Head exam: Present: atraumatic, normocephalic - Respiratory Additional comments: Fine bibasilar rales present. - Cardiovascular Cardiovascular exam: Present: RRR, +S1, +S2 - GI/Abdominal GI/Abdominal exam: Present: distended, normal bowel sounds, soft - Extremities Exam Additional comments: Diffuse areas of hypopigmentation present and bilateral upper extremities. - Skin Additional comments: diffuse areas of redness with sharp demarcation present in the panniculis, and bilateral groin areas. No obvious sores present. Small cut in the skin is present along the fold of the right groin area. Infectious Disease CN: Results - Labs CBC & Chem 7: 11/03/17 04:00 11/03/17 10:20 Consult Discharge Plan - Plan Referrals: Kavitha Yu DO [Primary Care Provider] - - Attending Attestation I examined this patient and my medical decision-making was reviewed with the Resident Physician. I agree with the documented findings, disposition and treatment plan as described except to the extent set forth below. This is an addendum to original report dictated by resident physician. Please refer to residents note for full details. Patient is a 57-year-old woman who was admitted to [facility] on November 01 with left groin cellulitis and Marleen, we are consult at to make antibiotics recommendations. Patient with extensive past medical history mentioned below including diabetes mellitus and morbid obesity states that a few days prior to admission she felt pain and swelling in her groin area. Patient tells me that she looks in the [facility] mirror and noticed erythema and swelling so she came into the emergency department for evaluation. Patient had similar episode a few years back and was treated by my colleague with Diflucan, nystatin, Bactrim and Cipro. Patient was doing well clinically and apparently her symptoms recurred. Patient lives alone at home by herself [place] hospital she tells me. Patient does smoke but does not drink alcohol. Patient has no animals at home. No trauma to the area. No travel history. At this point clearly patient has: Marleen intertrigo: Patient educated on proper hygiene. Nursing, me that licensed master social worker setting up a home health aide to come in and help her bathe 1 or 2 times a week. Cellulitis: Questionable at this point. I think it is all due to the yeast infection. Patient currently on vancomycin and cefepime. Asymptomatic bacteriuria with VRE and Escherichia coli Diabetes mellitus type 2 Morbid obesity Agree with combination of fluconazole and topical antifungal. I think the patient needs both miconazole and nystatin. Recommend stopping nystatin and continuing only miconazole and oral Diflucan. Duration of treatment likely 4 weeks. As for the questionable cellulitis patient currently on vancomycin and cefepime , consider switching to orals on discharge including Bactrim and Cipro to finish a 10 day course. As for the asymptomatic bacteriuria, agree with Lasix in patient in contact isolation, no antibiotics recommended at this time. Vancomycin trough around 10 Monitor labs and for drug toxicity Monitor kidney function
[2017-11-03] MEDS: FLUoxetine 20 MG CAPSULE PO SCH (08:38)
[2017-11-03] MEDS: Furosemide 20 MG TABLET PO SCH (08:45)
[2017-11-03] MEDS: lamoTRIgine 100 MG TABLET PO SCH (08:45)
[2017-11-03] MEDS: Gabapentin 400 MG CAPSULE PO SCH ×4 (08:46→20:38)
[2017-11-03] MEDS: Aspirin 81 MG TAB.CHEW PO SCH (08:46)
[2017-11-03] MEDS: Nystatin POWDER 30 GM BOTTLE TP SCH ×2 (08:47→18:05)
[2017-11-03] MEDS: Clotrimazole 1% CRM 15 GM TUBE TP SCH (08:48)
[2017-11-03] MEDS: Insulin LISPRO 300 UNITS/3 ML VIAL SQ SCH ×4 (08:48→20:39)
[2017-11-03] MEDS: Fluconazole 100 MG/50 ML 100 MG/50 ML BAG IVPB SCH (09:11)
[2017-11-03 10:48] LABS: BUN/Creatinine Ratio 15 (6-26); Blood Urea Nitrogen 16 mg/dL (6-20); eGFR For African Americans > 60 (> 60); eGFR For Non-African Americans 55 (> 60)
--- NOTE | 2017-11-03 12:05 | Internal Med Progress Note ---
Date of Encounter: 11/03/17 Time of Encounter: 12:05 - Assessment and plan (1) UTI (urinary tract infection) Current Visit: Yes Status: Acute Assessment and plan: Patient is currently on cefepime urine culture positive for Escherichia coli and VRE. Past urine cultures positive for Escherichia coli ESBL Proteus mirabilis mirabilis Klebsiella citrobacter freundii enterobacter cloacae- infectious disease recommendations -no antibiotics at this time Qualifiers: Urinary tract infection type: acute cystitis Hematuria presence: with hematuria Qualified Code(s): N30.01 - Acute cystitis with hematuria (2) Abdominal wall cellulitis Current Visit: Yes Status: Acute Assessment and plan: Currently on vancomycin as well as cefepime. Infectious disease recommendations continue with vancomycin and cefepime consider switching to orals on discharge including Bactrim and Cipro to finish 10 day course (3) Poor personal hygiene Current Visit: Yes Status: Chronic Assessment and plan: Likely contributing to recurrent cellulitis-clinical social work therapist setting up home health aide to come and help her bathe 1 or 2 times a week Encouraged patient to use antibacterial soap (4) Candidal intertrigo Current Visit: Yes Status: Acute Assessment and plan: recurrent. Was hospitalized 09/2016 for same issues. Infectious disease has been consult. Recommending continuation of flucanazole and topical antifungal.- Discharge will need both miconazole and nystatin-we will need to switch to oral Diflucan for duration of treatment likely 4 weeks Continue with local wound care (5) Diabetes mellitus Current Visit: Yes Status: Chronic Assessment and plan: per hx. COnt home long acting. Increase SSI to medium scale. Blood sugars have improved Monitor blood sugar and titrate PRN Qualifiers: Diabetes mellitus type: type 2 Diabetes mellitus group home insulin use: with terminal gauger use Diabetes mellitus complication status: with kidney complications Diabetes mellitus complication detail: with chronic kidney disease Chronic kidney disease stage: stage 3 (moderate) Qualified Code(s): E11.22 - Type 2 diabetes mellitus with diabetic chronic kidney disease; N18.3 - Chronic kidney disease, stage 3 (moderate); N18.3 - Chronic kidney disease, stage 3 (moderate); Z79.4 - group home (current) use of insulin; Z79.4 - group home (current) use of insulin; Z79.4 - terminal operations supervisor (current) use of insulin; Z79.4 - terminal operations supervisor (current) use of insulin (6) Chronic kidney disease, stage 3 Current Visit: Yes Status: Chronic Assessment and plan: History of CKD stage III. BUN, creatinine and GFR at baseline. Avoid nephrotoxins as possible. Monitor repeat renal function. (7) Morbid obesity with BMI of 40.0-44.9, adult Current Visit: Yes Status: Chronic Assessment and plan: BMI 41; lifestyle/dietary modifications encouraged (8) DVT prophylaxis Current Visit: Yes Status: Acute Assessment and plan: Heparin subcutaneous - Time Spent With Patient Total time spent is greater than 50% in coordination of care (as documented) at patient's floor/unit and/or counseling patient: - Subjective Interval history: This patient is new to me I did review medical records. Patient denies any pain or discomfort at this time. - Constitutional Vitals: Temp Pulse Resp BP Pulse Ox 98.0 F 62 16 169/91 93 11/03/17 11:24 11/03/17 11:24 11/03/17 11:24 11/03/17 11:24 11/03/17 11:24 General appearance: Present: cooperative, A&O X 3, morbidly obese, no acute distress, answers questions appropriately - Head Head exam: Present: atraumatic, normocephalic - Eye Eye exam: Present: PERRL, conjuntiva pink, sclera anicteric Pupils: Present: PERRL - Neck Neck exam general surgery: Present: supple, trachea midline. Absent: lymphadenopathy - Respiratory Respiratory exam: Present: CTAB. Absent: accessory muscle use, rales, rhonchi, wheezes - Cardiovascular Cardiovascular exam: Present: RRR, +S1, +S2. Absent: diastolic murmur, gallop, rubs, systolic murmur - GI/Abdominal GI/Abdominal exam: Present: normal bowel sounds, soft, no peritoneal signs. Absent: distended, tenderness - Extremities Exam Extremities exam: Present: warm, radial pulses palpable and symmetrical. Absent : calf tenderness, cyanotic, pedal edema - Neurological Exam Neurological exam: Present: CN II-XII intact, oriented X3, no focal deficits. Absent: pronater drift, facial droop, speech deficit - Skin Skin exam: Present: dry, erythema, excoriation, intact Additional comments: Excoriation under pannus Internal Medicine: Result - Labs CBC & Chem 7: 11/03/17 04:00 04/24/18 10:20 Labs: Short CBC 11/03/17 Range/Units 04:00 WBC 8.9 (4.3-11.1) K/mcL Hgb 11.2 L (11.5-15.4) g/dL Hct 33.3 L (35.3-44.9) % Plt Count 227 (140-400) K/mcL BMP 11/03/17 11/03/17 04:00 10:20 Sodium 139 Potassium 3.8 Chloride 108 H Carbon Dioxide 23 BUN 17 16 Creatinine 1.02 1.04 Glucose 202 H Calcium 8.3 L Consult Discharge Plan - Plan Referrals: Kavitha Yu DO [Primary Care Provider] -
[2017-11-03] MEDS: traZODone 50 MG TABLET PO SCH (20:38)
[2017-11-03] MEDS: Insulin DETEMIR 100 UNIT/ML X5UNITS SQ SCH (20:40)
[2017-11-04] MEDS: Clotrimazole 1% CRM 15 GM TUBE TP SCH ×2 (00:22→10:00)
[2017-11-04] MEDS: 0.9 % Sodium Chloride 1,000 ML IVC SCH (01:53)
[2017-11-04] MEDS: Cefepime HCl 1,000 MG in Water for inj. (sterile) 20 ML 10 ML IVP SCH ×2 (04:19→13:34)
[2017-11-04] MEDS: *HR* Heparin 5,000 UNIT/ML VIAL SQ SCH (05:26)
[2017-11-04 06:33] LABS: Basophils # 0.1 K/mcL (0.0-0.2); Basophils % 0.9 %; Eosinophils # 0.6 K/mcL (0.0-0.6); Eosinophils % 5.9 %; Hematocrit 35.5 % (35.3-44.9); Hemoglobin 11.8 g/dL (11.5-15.4); Immature Granulocytes % 0.8 % (0-4); Lymphocytes # 2.8 K/mcL (0.6-4.6); Lymphocytes % 29.9 %; Mean Corpuscular HGB Conc 33.2 g/dL (31.6-35.5); Mean Corpuscular Hemoglobin 28.6 pg (28.0-33.3); Mean Platelet Volume 9.3 fL (9.4-12.4); Monocytes # 0.6 K/mcL (0.0-1.3); Monocytes % 6.6 %; Neutrophils # 5.2 K/mcL (1.6-8.9); Platelet Count 264 K/mcL (140-400); Red Blood Count 4.13 M/mcL (3.82-4.97); Red Cell Distribution Width 14.3 % (11.5-14.5); Segmented Neutrophils % 55.9 %
[2017-11-04 07:40] LABS: BUN/Creatinine Ratio 16 (6-26); Blood Urea Nitrogen 15 mg/dL (6-20); Calcium 8.7 mg/dL (8.6-10.3); Carbon Dioxide 25 mEq/L (23-29); Chloride 109 mEq/L (98-107); Glucose 153 mg/dL (70-105); Osmolality,Calculated 294 (280-300); Sodium 140 mEq/L (136-145); eGFR For African Americans > 60 (> 60); eGFR For Non-African Americans > 60 (> 60)
[2017-11-04] MEDS: lamoTRIgine 100 MG TABLET PO SCH (08:21)
[2017-11-04] MEDS: Furosemide 20 MG TABLET PO SCH (08:21)
[2017-11-04] MEDS: FLUoxetine 20 MG CAPSULE PO SCH (08:21)
[2017-11-04] MEDS: Gabapentin 400 MG CAPSULE PO SCH ×2 (08:22→13:34)
[2017-11-04] MEDS: Aspirin 81 MG TAB.CHEW PO SCH (08:22)
[2017-11-04] MEDS: Insulin LISPRO 300 UNITS/3 ML VIAL SQ SCH ×2 (08:24→13:35)
[2017-11-04] MEDS: Fluconazole 100 MG/50 ML 100 MG/50 ML BAG IVPB SCH (08:35)
--- NOTE | 2017-11-04 09:45 | Infectious Disease Progress No ---
Date of Encounter: 11/04/17 Time of Encounter: 09:42 - Assessment and Plan (1) Candidal intertrigo Current Visit: Yes Status: Acute cellulitis questionable, likely yeast infection. currently on vancomycin/cefepime Creatinine clearance: 82 11/01/17 prelim blood cultures x2 negative Plan: for candidal Intertrigo: fluconazole day 4 (switched to oral), topical clomitrazole day 4. Duration of treatment: 4 weeks. for questionable cellulitis: vancomycin day 4 (goal trough: 10), cefepime day 4. Recommend switching to orals on discharge, can do bactrim and Cipro to complete a 10 day course. continue to monitor kidney function. ok to discharge from ID standpoint. please follow up in ID clinic in 2 weeks. (2) ASB (asymptomatic bacteriuria) Current Visit: No Status: Acute Urine culture positive for E. coli and VRE past urine cultures positive for E.Coli ESBL, proteus Mirabilis, klebsiella, citrobacter freundii, enterobacter cloacae. no antibiotics recommended at this time. (3) Diabetes mellitus Current Visit: Yes Status: Chronic Last A1 C from 09/29/17 was 7.8 Qualifiers: Qualified Code(s): E11.22 - Type 2 diabetes mellitus with diabetic chronic kidney disease; N18.3 - Chronic kidney disease, stage 3 (moderate); N18.3 - Chronic kidney disease, stage 3 (moderate); Z79.4 - half-way (current) use of insulin; Z79.4 - long term care administrator (current) use of insulin; Z79.4 - long term care administrator (current ) use of insulin; Z79.4 - long term care administrator (current) use of insulin (4) Chronic kidney disease, stage 3 Current Visit: Yes Status: Chronic sees Dr. Rod. kidney function stable at this time. (5) Morbid obesity with BMI of 40.0-44.9, adult Current Visit: Yes Status: Chronic Lifestyle modifications advised, along with proper hygiene. - Subjective Interval history: 57-year-old female evaluated at bedside. She denies nausea, vomiting, diarrhea , fever, chills, chest pain, shortness of breath. Infect Dis PN-Objective Data - Labs CBC & Chem 7: 11/04/17 05:40 11/04/17 05:40 Labs: Laboratory Results - last 24 hr 0411/03/17 11/03/17 07:26 10:20 10:20 WBC RBC Hgb Hct MCV MCH MCHC RDW Plt Count MPV Immature Gran % Seg Neutrophils % Lymphocytes % Monocytes % Eosinophils % Basophils % Neutrophils # Lymphocytes # Monocytes # Eosinophils # Basophils # Sodium Potassium Chloride Carbon Dioxide BUN 16 Creatinine 1.04 Est GFR ( Amer) > 60 Est GFR (Non-Af Amer) 55 L BUN/Creatinine Ratio 15 Glucose POC Glucose 182 H Calculated Osmolality Calcium Random Vancomycin 16 11/03/17 11/03/17 11/03/17 11:21 15:55 20:33 WBC RBC Hgb Hct MCV MCH MCHC RDW Plt Count MPV Immature Gran % Seg Neutrophils % Lymphocytes % Monocytes % Eosinophils % Basophils % Neutrophils # Lymphocytes # Monocytes # Eosinophils # Basophils # Sodium Potassium Chloride Carbon Dioxide BUN Creatinine Est GFR ( Amer) Est GFR (Non-Af Amer) BUN/Creatinine Ratio Glucose POC Glucose 271 H 258 H 308 H Calculated Osmolality Calcium Random Vancomycin 11/04/17 11/04/17 05:40 05:40 WBC 9.3 RBC 4.13 Hgb 11.8 Hct 35.5 MCV 86.0 MCH 28.6 MCHC 33.2 RDW 14.3 Plt Count 264 MPV 9.3 L Immature Gran % 0.8 Seg Neutrophils % 55.9 Lymphocytes % 29.9 Monocytes % 6.6 Eosinophils % 5.9 Basophils % 0.9 Neutrophils # 5.2 Lymphocytes # 2.8 Monocytes # 0.6 Eosinophils # 0.6 Basophils # 0.1 Sodium 140 Potassium 4.0 Chloride 109 H Carbon Dioxide 25 BUN 15 Creatinine 0.95 Est GFR ( Amer) > 60 Est GFR (Non-Af Amer) > 60 BUN/Creatinine Ratio 16 Glucose 153 H POC Glucose Calculated Osmolality 294 Calcium 8.7 Random Vancomycin Exam - Constitutional Vitals: Temp Pulse Resp BP Pulse Ox 97.7 F 56 14 182/82 92 11/04/17 06:44 11/04/17 06:44 11/04/17 06:44 11/04/17 06:44 11/04/17 06:44 - Head Head exam: Present: atraumatic - Respiratory Respiratory exam: Present: CTAB - Cardiovascular Cardiovascular exam: Present: RRR, +S1, +S2 - GI/Abdominal GI/Abdominal exam: Present: distended, normal bowel sounds, soft. Absent: tenderness - Extremities Exam Extremities exam: Absent: pedal edema, tenderness Additional comments: Areas of hypopigmentation present on all 4 extremities. - Neurological Exam Neurological exam: Present: alert, oriented X3 - Psychiatric Psychiatric exam: Present: depressed - Skin Additional comments: Bilateral groin area, and area under paniculus, along with pubic area skin appears darkened with sharp demarcation, peeling skin present along the edges. Consult Discharge Plan - Plan Referrals: Kavitha Yu DO [Primary Care Provider] - Mili Kuhn CNP [Advanced Practice Nurse] - Breezy Rod DO [Partnered Physician] - Prescriptions: Ciprofloxacin [Cipro] 500 mg PO DAILY #6 [email or web address] Clotrimazole 1% CRM [Lotrimin 1%] 1 appl TP BID #2 tube Fluconazole [Diflucan] 100 mg PO DAILY #24 tablet Sulfamethoxazole/Trimeth DS [Bactrim DS] 1 each PO DAILY #6 tablet - Attending Attestation I examined this patient and my medical decision-making was reviewed with the Resident Physician. I agree with the documented findings, disposition and treatment plan as described except to the extent set forth below.
--- NOTE | 2017-11-04 10:41 | Internal Med Progress Note ---
Date of Encounter: 11/04/17 Time of Encounter: 10:41 - Assessment and plan (1) UTI (urinary tract infection) Current Visit: Yes Status: Acute Qualifiers: Urinary tract infection type: acute cystitis Hematuria presence: with hematuria Qualified Code(s): N30.01 - Acute cystitis with hematuria (2) Abdominal wall cellulitis Current Visit: Yes Status: Acute (3) Poor personal hygiene Current Visit: Yes Status: Chronic (4) Candidal intertrigo Current Visit: Yes Status: Acute (5) Diabetes mellitus Current Visit: Yes Status: Chronic Qualifiers: Diabetes mellitus type: type 2 Diabetes mellitus watermaster insulin use: with watermaster use Diabetes mellitus complication status: with kidney complications Diabetes mellitus complication detail: with chronic kidney disease Chronic kidney disease stage: stage 3 (moderate) Qualified Code(s): E11.22 - Type 2 diabetes mellitus with diabetic chronic kidney disease; N18.3 - Chronic kidney disease, stage 3 (moderate); N18.3 - Chronic kidney disease, stage 3 (moderate); Z79.4 - prison (current) use of insulin; Z79.4 - prison (current) use of insulin; Z79.4 - prison (current) use of insulin; Z79.4 - middle or intermediate school principal (current) use of insulin (6) Chronic kidney disease, stage 3 Current Visit: Yes Status: Chronic (7) Morbid obesity with BMI of 40.0-44.9, adult Current Visit: Yes Status: Chronic (8) DVT prophylaxis Current Visit: Yes Status: Acute - Time Spent With Patient Total time spent is greater than 50% in coordination of care (as documented) at patient's floor/unit and/or counseling patient: - Constitutional Vitals: Temp Pulse Resp BP Pulse Ox 97.7 F 56 14 182/82 92 11/04/17 06:44 11/04/17 06:44 11/04/17 06:44 11/04/17 06:44 11/04/17 06:44 General appearance: Present: cooperative, A&O X 3, morbidly obese, no acute distress, answers questions appropriately Internal Medicine: Result - Labs CBC & Chem 7: 11/04/17 05:40 11/04/17 05:40 Labs: Short CBC 11/04/17 Range/Units 05:40 WBC 9.3 (4.3-11.1) K/mcL Hgb 11.8 (11.5-15.4) g/dL Hct 35.5 (35.3-44.9) % Plt Count 264 (140-400) K/mcL Neutrophils # 5.2 (1.6-8.9) K/mcL BMP 11/03/17 11/04/17 10:20 05:40 Sodium 140 Potassium 4.0 Chloride 109 H Carbon Dioxide 25 BUN 16 15 Creatinine 1.04 0.95 Glucose 153 H Calcium 8.7 Consult Discharge Plan - Plan Referrals: Kavitha Yu DO [Primary Care Provider] -
[2017-11-04 15:35] VITALS: BP 181/78
--- NOTE | 2017-11-04 16:04 | Discharge Summary ---
- NOTES TO OUTPATIENT PROVIDER Notes to Outpatient Provider: Per ID recommendations she is to take fluconazole and clomitrazole for 4 weeks stop 12/05/2017. Follow up with nephrology in week in a half. Chem 7 in one week Orders not resulted at time of discharge: Pending orders 11/05/17 19:00 Vancomycin,Trough Timed Date of Encounter: 11/04/17 Time of Encounter: 16:01 - Discharge Diagnosis (1) UTI (urinary tract infection) Priority: Secondary Status: Acute Qualifiers: Urinary tract infection type: acute cystitis Hematuria presence: with hematuria Qualified Code(s): N30.01 - Acute cystitis with hematuria (2) Abdominal wall cellulitis Priority: Primary Status: Acute (3) Poor personal hygiene Priority: Secondary Status: Chronic (4) Candidal intertrigo Priority: Primary Status: Acute (5) Diabetes mellitus Priority: Secondary Status: Chronic Qualifiers: Diabetes mellitus type: type 2 Diabetes mellitus long-term insulin use: with long-term use Diabetes mellitus complication status: with kidney complications Diabetes mellitus complication detail: with chronic kidney disease Chronic kidney disease stage: stage 3 (moderate) Qualified Code(s): E11.22 - Type 2 diabetes mellitus with diabetic chronic kidney disease; N18.3 - Chronic kidney disease, stage 3 (moderate); N18.3 - Chronic kidney disease, stage 3 (moderate); Z79.4 - reel winder (current) use of insulin; Z79.4 - senior care (current) use of insulin; Z79.4 - senior care (current) use of insulin; Z79.4 - reel winder (current) use of insulin (6) Chronic kidney disease, stage 3 Priority: Secondary Status: Chronic (7) Morbid obesity with BMI of 40.0-44.9, adult Priority: Secondary Status: Chronic Hospital course: Ms. Brothers is a 57 year old female past medical history of asthma CAD diabetes hypertension hyperlipidemia CK D stage III. Patient was recently admitted through 09/23/16 at that time she was treated for bilateral groin and lower abdominal cellulitis she was treated with IV flucanazole vancomycin cefepime urine culture grew Klebsiella pneumonia. Half cultures were positive for staph epidermidis. She was discharged on flucanazole to complete a four-week course as well as oral doxycycline ciprofloxacin to complete 2 week course. Symptoms improved upon discharge she was sent to [facility]. She returned to the emergency department with cellulitis symptoms preliminary blood cultures were negative urine culture was positive for Escherichia coli and VRE. She was started on cefepime and vancomycin flucanazole clomitrazole nystatin powder. She was seen by infectious disease who recommended patient be switched to oral flucanazole and topical clomitrazole four-week course she has completed 4 days. Also recommending to switch oral antibiotics on discharge to Bactrim and Cipro to complete a ten-day course. Asymptomatic actually per infectious disease with no antibiotics recommended. Blood cultures have been negative 2 Patient does have issues with personal hygiene. painting and coating worker did set up for home health aide to assist patient with bathing at home. As well as home health nursing. Patient's creatinine stable at this time. I did review this case with Dr. Patel at her since patient will be sent home on oral Bactrim. He advised to continue with Bactrim check lab work in 1 week and had follow-up with nephrology in a week and half. Patient will be discharged home advised patient to follow-up with infectious disease in 2 weeks with her primary care physician as well as nephrology in a week and a half. Patient verbalized understanding she is hemodynamically stable and ready for discharge at this time Discharge discussed with: patient - Time Spent with Patient Total time spent providing and/or coordinating discharge services: - Discharge Medications Prescriptions: Ciprofloxacin [Cipro] 500 mg PO DAILY #6 [facility]rec Clotrimazole 1% CRM [Lotrimin 1%] 1 appl TP BID #2 tube Fluconazole [Diflucan] 100 mg PO DAILY #24 tablet Sulfamethoxazole/Trimeth DS [Bactrim DS] 1 each PO DAILY #6 tablet Home Medications: Carvedilol [Coreg] 12.5 mg PO BID 10/31/15 [History] Cholecalciferol (Vitamin D3) [Vitamin D3] 50,000 unit PO TU 10/31/15 [History] FLUoxetine HCl [Prozac] 40 mg PO DAILY 10/31/15 [History] Furosemide [Lasix] 10 mg PO DAILY 10/31/15 [History] Insulin ASPART [NovoLOG] 18 units SQ TIDWM MDD Sliding Scale 10/31/15 [History] Lovastatin [Altoprev] 40 mg PO DAILY 10/31/15 [History] Omeprazole 20 mg PO DAILY 10/31/15 [History] Triamterene/HCTZ 37.5/25mg [Dyazide] 1 tab PO DAILY #0 10/31/15 [History] Albuterol Sulfate [Proair Hfa] 2 puff IH Q4H PRN 06/06/16 [History] Aspirin 81 mg PO DAILY 06/06/16 [History] Promethazine [Phenergan] 25 mg PO Q6H PRN 06/06/16 [History] Ferrous Sulfate 325 mg PO DAILY 09/20/16 [History] Gabapentin 800 mg PO QID 09/20/16 [History] HydrOXYzine Pamoate [Vistaril] 50 - 100 mg PO Q6H PRN 09/20/16 [History] lamoTRIgine [Lamictal] 200 mg PO DAILY 09/20/16 [History] traZODone [TraZODone] 50 mg PO HS 09/20/16 [History] HYDROcodone/Acet 5/325 mg [[place] 5-325 mg] 1 - 2 tab PO Q6H PRN #10 tab [Rx] Insulin Glargine,Hum.rec.anlog [Lantus Solostar] 74 unit SQ HS 11/01/17 [History ] clonazePAM [Klonopin] 0.5 mg PO BID PRN 11/01/17 [History] metFORMIN [Glucophage] 500 mg PO BID 11/01/17 [History] Ciprofloxacin [Cipro] 500 mg PO DAILY #6 [email or web address] 11/04/17 [Rx] Clotrimazole 1% CRM [Lotrimin 1%] 1 appl TP BID #2 tube 11/04/17 [Rx] Fluconazole [Diflucan] 100 mg PO DAILY #24 tablet 11/04/17 [Rx] Sulfamethoxazole/Trimeth DS [Bactrim DS] 1 each PO DAILY #6 tablet 11/04/17 [Rx] Allergies/Adverse Reactions: 3 Allergy/AdvReac Type Severity Reaction Status Date / Time Penicillins Allergy Hives Verified 09/20/16 12:06 Date of admission: 11/01/17 11:54 Primary care physician: Kavitha Yu DO Consults: 11/01/17 18:05 Consult to Digital Business Analyst [CONS] Routine Reason for SW Consult: self care deficits. May benefit from ECF placement. 11/02/17 14:14 Consult to Infectious Diseases [CONS] Routine Consulting Provider: [facility] [place] Reason for Consult: Candidal intertrigo and cellulitis Call Completed: Yes Discharging clinician: Karla Kenney Anticipated date of discharge: 11/04/17 - Constitutional Vitals: Temp Pulse Resp BP Pulse Ox 98.1 F 55 14 181/78 96 11/04/17 15:33 11/04/17 15:33 11/04/17 15:33 11/04/17 15:33 11/04/17 15:33 General appearance: Present: cooperative, A&O X 3, morbidly obese, no acute distress, answers questions appropriately - Head Head exam: Present: atraumatic, normocephalic - Eye Eye exam: Present: PERRL, conjuntiva pink, sclera anicteric Pupils: Present: PERRL - Neck Neck exam general surgery: Present: supple, trachea midline. Absent: lymphadenopathy - Respiratory Respiratory exam: Present: CTAB. Absent: accessory muscle use, rales, rhonchi, wheezes - Cardiovascular Cardiovascular exam: Present: RRR, +S1, +S2. Absent: diastolic murmur, gallop, rubs, systolic murmur - GI/Abdominal GI/Abdominal exam: Present: normal bowel sounds, soft, no peritoneal signs. Absent: distended, tenderness - Extremities Exam Extremities exam: Present: warm, radial pulses palpable and symmetrical. Absent : calf tenderness, cyanotic, pedal edema - Neurological Exam Neurological exam: Present: CN II-XII intact, oriented X3, no focal deficits. Absent: pronater drift, facial droop, speech deficit - Skin Skin exam: Present: dry, intact Additional comments: Bilateral groin area and under panniculus along pubic area skin appears dark and with sharp demarcation peeling skin along the edges - Patient Status Disposition: Home Health Service Condition: Fair Functional capacity at discharge: independent ambulation Overall status at discharge: patient is progressing back to baseline - Ambulatory Orders Ambulatory Orders: Basic Metabolic Panel [CHEM] Time Frame: 1 Week, Facility: [facility], Location: Lab - Discharge Instructions Follow Up With: Kavitha Yu DO [Primary Care Provider] - Mili Kuhn, INSURANCE PROFESSIONAL [Advanced Practice Nurse] - Breezy Rod, [Partnered Physician] - - Diet and Activity Activity: as per physical therapy Diet: diabetic diet
--- NOTE | 2017-11-04 17:10 | Physician Discharge Referral ---
Home Health/Hosp Referral Info Transfer to: Home Health Attending Provider: Karla Kenney Provider in Charge Post Discharge: PCP - Diagnosis (1) UTI (urinary tract infection) Priority: Secondary Status: Acute (2) Abdominal wall cellulitis Priority: Primary Status: Acute (3) Poor personal hygiene Priority: Secondary Status: Chronic (4) Candidal intertrigo Priority: Primary Status: Acute (5) Diabetes mellitus Priority: Secondary Status: Chronic (6) Chronic kidney disease, stage 3 Priority: Secondary Status: Chronic (7) Morbid obesity with BMI of 40.0-44.9, adult Priority: Secondary Status: Chronic - Respiratory Orders Smoking Cessation: Smoking cessation has been advised. For more information, call the [place] Tobacco Quit Line at 5-916-DRPE-NOW. - Diet/Nutrition Diet/Nutrition Orders: No Concentrated Sweets - Activity Activity Orders: Up ad kathy - Services Needed Following services are medically necessary services: Nursing, Home Health Aide - Transfer Medications Prescriptions: Ciprofloxacin [Cipro] 500 mg PO DAILY #6 [email or web address] Clotrimazole 1% CRM [Lotrimin 1%] 1 appl TP BID #2 tube Fluconazole [Diflucan] 100 mg PO DAILY #24 tablet Sulfamethoxazole/Trimeth DS [Bactrim DS] 1 each PO DAILY #6 tablet Home Medications: Carvedilol [Coreg] 12.5 mg PO BID 10/31/15 [History] Cholecalciferol (Vitamin D3) [Vitamin D3] 50,000 unit PO TU 10/31/15 [History] FLUoxetine HCl [Prozac] 40 mg PO DAILY 10/31/15 [History] Furosemide [Lasix] 10 mg PO DAILY 10/31/15 [History] Insulin ASPART [NovoLOG] 18 units SQ TIDWM MDD Sliding Scale 10/31/15 [History] Lovastatin [Altoprev] 40 mg PO DAILY 10/31/15 [History] Omeprazole 20 mg PO DAILY 10/31/15 [History] Triamterene/HCTZ 37.5/25mg [Dyazide] 1 tab PO DAILY #0 10/31/15 [History] Albuterol Sulfate [Proair Hfa] 2 puff IH Q4H PRN 06/06/16 [History] Aspirin 81 mg PO DAILY 06/06/16 [History] Promethazine [Phenergan] 25 mg PO Q6H PRN 06/06/16 [History] Ferrous Sulfate 325 mg PO DAILY 09/20/16 [History] Gabapentin 800 mg PO QID 09/20/16 [History] HydrOXYzine Pamoate [Vistaril] 50 - 100 mg PO Q6H PRN 09/20/16 [History] lamoTRIgine [Lamictal] 200 mg PO DAILY 09/20/16 [History] traZODone [TraZODone] 50 mg PO HS 09/20/16 [History] HYDROcodone/Acet 5/325 mg [[place] 5-325 mg] 1 - 2 tab PO Q6H PRN #10 tab [Rx] Insulin Glargine,Hum.rec.anlog [Lantus Solostar] 74 unit SQ HS 11/01/17 [History ] clonazePAM [Klonopin] 0.5 mg PO BID PRN 11/01/17 [History] metFORMIN [Glucophage] 500 mg PO BID 11/01/17 [History] Ciprofloxacin [Cipro] 500 mg PO DAILY #6 [email or web address] 11/04/17 [Rx] Clotrimazole 1% CRM [Lotrimin 1%] 1 appl TP BID #2 tube 11/04/17 [Rx] Fluconazole [Diflucan] 100 mg PO DAILY #24 tablet 11/04/17 [Rx] Sulfamethoxazole/Trimeth DS [Bactrim DS] 1 each PO DAILY #6 tablet 11/04/17 [Rx] Allergies/Adverse Reactions: 3 Allergy/AdvReac Type Severity Reaction Status Date / Time Penicillins Allergy Hives Verified 09/20/16 12:06 Certification: Further, I certify that my clinical findings support that this patient is homebound (i.e. absences from home require considerable and taxing effort and are for medical reasons or orthodoxy services or infrequently or short duration when for other reasons) because: Homebound Reason: Patient requires assistance of a person or device to safely leave home Attestation: My signature below is to certify that this patient is under my care and that I, or nurse practitioner, or a physician's event sales assistant working with me, has a face-to -face encounter with this patient.
[2017-11-04] MEDS ORDERED: Aminoglycoside Consult 1 EACH MC ONE (17:54)
[2017-11-05] MEDS ORDERED: Fluconazole 100 MG TABLET PO SCH (09:00)
== END 2017-11-04 17:55 | disposition home health service (06) ==
LOC: 3BNU 09:30 → EMEROO 09:30 → 3BNU 12:27
PROVIDERS: ADMIT Family Medicine; ATTEND Family Medicine

== ENCOUNTER 2018-03-26 12:33 | Inpatient (IN) ==
[2018-03-26] MEDS ORDERED: Ipratropium/Albuterol Neb 3 ML IH ONE (13:03)
--- NOTE | 2018-03-26 13:11 | Emergency Department Note ---
Disposition Clinical Impression: Hypoxia Disposition: Admitted As Inpatient Time of Disposition: 12:00 General Adult HPI - General Chief complaint: ED Shortness of Breath/Dyspnea Stated complaint: ENMANUEL Source: patient, EMS Limitations: no limitations Nursing Notes Reviewed: Yes Vital Signs Reviewed: Yes - History of Present Illness HPI Narrative: Cough: Congestion symptoms for one week. No pain no fever. She continues to smoke. No nausea vomiting or diarrhea. No chest pain. Oxygen level at the urgent care when she went in today was 90. She already saw an urgent care a few days ago and was placed on azithromycin. Denies prior admission for breathing Onset (ago): day(s) Location: chest Radiation: non-radiation Pain Scale: 0 Consistency: intermittent Improves with: nothing Worsens with: nothing Associated symptoms: Reports: cough. Denies: chest pain, diaphoresis, malaise, nausea/vomiting - Related Data Home Medications Medication Instructions Recorded Confirmed Carvedilol [Coreg] 12.5 mg PO BID 10/31/15 03/26/18 Cholecalciferol (Vitamin D3) 50,000 unit PO TUSA 10/31/15 03/26/18 [Vitamin D3] FLUoxetine HCl [Prozac] 40 mg PO DAILY 10/31/15 03/26/18 Furosemide [Lasix] 10 mg PO DAILY 10/31/15 03/26/18 Omeprazole 20 mg PO DAILY 10/31/15 03/26/18 Triamterene/HCTZ 37.5/25mg 1 tab PO DAILY #0 10/31/15 03/26/18 [Dyazide] Albuterol Sulfate [Proair Hfa] 2 puff IH Q4H PRN 06/06/16 03/26/18 Aspirin 81 mg PO DAILY 06/06/16 03/26/18 Ferrous Sulfate 325 mg PO DAILY 09/20/16 03/26/18 lamoTRIgine [Lamictal] 200 mg PO DAILY 09/20/16 03/26/18 traZODone [TraZODone] 50 mg PO HS 09/20/16 03/26/18 clonazePAM [Klonopin] 0.5 mg PO BID PRN 11/01/17 03/26/18 metFORMIN [Glucophage] 1,000 mg PO BID 11/01/17 03/26/18 Cefdinir [Omnicef] 300 mg PO BID 03/26/18 03/26/18 Insulin Glargine,Hum.rec.anlog 37 unit SQ BID 03/26/18 03/26/18 [Basaglar Kwikpen U-100] Insulin LISPRO [Admelog] 18 unit SQ TIDWM 03/26/18 03/26/18 Lovastatin [Lovastatin] 40 mg PO HS 03/26/18 03/26/18 Allergies Allergy/AdvReac Type Severity Reaction Status Date / Time Penicillins Allergy Hives Verified 03/26/18 16:57 Constitutional: Denies: fever, chills, weakness, weight change Eyes: Denies: eye pain, eye discharge, vision change ENT ED: Denies: ear pain, throat pain, dental pain, hearing loss, epistaxis, congestion, dysphagia Cardiovascular: Denies: chest pain, palpitations, dyspnea on exertion, edema, syncope Respiratory: Reports: as per HPI, cough, wheezes, sputum production Gastrointestinal: Denies: abdominal pain, nausea, vomiting, diarrhea, constipation, hematemesis, melena, hematochezia Genitourinary: Denies: dysuria, frequency, hematuria, discharge Musculoskeletal: Denies: back pain, neck pain, arthralgia, myalgia Integumentary: Denies: rash, abrasion, lesions Neurological: Denies: headache, weakness, numbness, paresthesias, confusion, abnormal gait, vertigo Psychiatric: Denies: anxiety, depression, suicidal thoughts, homicidal thoughts , auditory hallucinations, visual hallucinations Endocrine: Denies: fatigue Hematological/Lymphatic: Denies: easy bleeding, easy bruising Allergic/Immunologic: Denies: facial swelling, urticaria Past Medical History - Past Medical History Medical history: Reports: asthma, coronary artery disease, diabetes, hyperlipidemia, hypertension, renal disease Surgical history: Reports: , cholecystectomy, hysterectomy Psychiatric history: Reports: anxiety, depression - Social History Smoking Status: Current every day smoker Smokeless Tobacco Status: No Alcohol use: Reports: none Drug use: Reports: none Physical Exam - General Limitations: no limitations General appearance: alert, in no apparent distress - Head Head exam: atraumatic, normocephalic, normal inspection - Eye Eye exam: Present: normal appearance, PERRL, EOMI - Expanded Eye Exam Pupils: Left: reactive - ENT ENT exam: normal exam, normal oropharynx, mucous membranes moist - Expanded ENT Exam External ear exam: Present: normal external inspection Mouth exam: Present: normal external inspection Teeth exam: Present: normal inspection Throat exam: Present: normal inspection - Neck Neck exam: Present: normal inspection, full ROM, trachea midline - Chest Chest inspection: Present: normal inspection, symmetric chest wall rise - Respiratory Respiratory exam: Present: wheezes. Absent: respiratory distress, accessory muscle use, prolonged expiratory phase - Cardiovascular Cardiovascular exam: Present: regular rate, normal rhythm, normal heart sounds - Abdominal Exam Abdominal exam: Present: soft, Non-Tender. Absent: tenderness, distention, guarding, rebound, rigidity - Extremities Exam Extremities exam: Present: normal inspection, full ROM. Absent: tenderness, pedal edema - Expanded Upper Extremity Exam Shoulder exam: Present: normal inspection, full ROM Arm exam: Present: normal inspection, full ROM Elbow exam: Present: normal inspection, full ROM Forearm/Wrist exam: Present: normal inspection, full ROM Hand exam: Present: normal inspection, full ROM Vascular exam: Normal: capillary refill, radial pulse - Expanded Lower Extremity Exam Hip/Pelvis exam: Present: normal inspection, full ROM Upper leg exam: Present: normal inspection, full ROM Knee exam: Present: normal inspection, full ROM Lower leg exam: Present: normal inspection, full ROM Ankle exam: Present: normal inspection, full ROM Foot/toe exam: Present: normal inspection, full ROM Neurovascular/Tendon exam: Absent: motor deficit, sensory deficit, tendon deficit - Back Exam Back exam: Present: normal inspection, full ROM. Absent: tenderness - Neurological Exam Neurological exam: Present: alert, oriented X3 - Expanded Neurological Exam Patient oriented to: Present: person, place, time Coma Scale Eye Opening: Spontaneous Coma Scale Motor Response: Obeys Commands Coma Scale Verbal Response: Oriented Coma Scale Total: 15 - Psychiatric Psychiatric exam: Present: normal affect, normal mood - Skin Skin exam: Present: warm, dry, intact, normal color Course Course Narrative: Ct scan ordered by the Hospitalist /verbally requested this; Not myself the ER physician Vital Signs Temperature 98.2 F 03/26/18 12:42 Pulse Rate 76 03/26/18 12:42 Respiratory Rate 18 03/26/18 12:42 Blood Pressure 127/67 03/26/18 12:42 O2 Sat by Pulse Oximetry 88 03/26/18 12:42 Temperature 99.4 F 09/14/18 20:18 Pulse Rate 75 03/26/18 20:18 Respiratory Rate 18 03/26/18 20:37 Blood Pressure 128/71 03/26/18 20:18 O2 Sat by Pulse Oximetry 89 03/26/18 20:37 Oxygen Delivery Oxygen Delivery Nasal Cannula Medical Decision Making - Lab Data Result diagrams: 03/26/18 13:54 03/26/18 13:54 Lab Results 03/26/18 03/26/18 03/26/18 Range/Units 13:54 13:54 13:54 WBC 18.9 H (4.3-11.1) K/mcL RBC 4.19 (3.82-4.97) M/mcL Hgb 12.1 (11.5-15.4) g/dL Hct 35.3 (35.3-44.9) % MCV 84.2 (83.0-100.0) fL MCH 28.9 (28.0-33.3) pg MCHC 34.3 (31.6-35.5) g/dL RDW 14.4 (11.5-14.5) % Plt Count 303 (140-400) K/mcL MPV 9.2 L (9.4-12.4) fL Sodium 135 L (136-145) mEq/L Potassium 4.1 (3.5-5.1) mEq/L Chloride 101 (98-107) mEq/L Carbon Dioxide 25 (23-29) mEq/L BUN 20 (6-20) mg/dL Creatinine 1.43 H (0.60-1.20) mg/dL Est GFR ( Amer) 46 L (> 60) Est GFR (Non-Af Amer) 38 L (> 60) BUN/Creatinine Ratio 14 (6-26) Glucose 124 H (70-105) mg/dL Calculated Osmolality 284 (280-300) Calcium 8.3 L (8.6-10.3) mg/dL Troponin I 0.06 H* (< 0.04) ng/mL B-Natriuretic Peptide 90 (Less than 100) pg/mL - EKG Data EKG #1 EKG attestation: Yes I reviewed and interpreted this EKG. EKG results narrative: nsr, no acute injury pattern; intervals unremarkable; EKG shows normal: sinus rhythm
[2018-03-26 14:39] LABS: Hematocrit 35.3 % (35.3-44.9); Hemoglobin 12.1 g/dL (11.5-15.4); Mean Corpuscular HGB Conc 34.3 g/dL (31.6-35.5); Mean Corpuscular Hemoglobin 28.9 pg (28.0-33.3); Mean Corpuscular Volume 84.2 fL (83.0-100.0); Mean Platelet Volume 9.2 fL (9.4-12.4); Platelet Count 303 K/mcL (140-400); Red Blood Count 4.19 M/mcL (3.82-4.97); Red Cell Distribution Width 14.4 % (11.5-14.5)
[2018-03-26 14:58] LABS: Calcium 8.3 mg/dL (8.6-10.3); Potassium 4.1 mEq/L (3.5-5.1)
[2018-03-26 15:02] LABS: Troponin I 0.06 ng/mL (< 0.04)
[2018-03-26] MEDS ORDERED: Aspirin 325 MG TABLET PO ONE (16:27)
[2018-03-26] MEDS ORDERED: levoFLOXacin 500 MG TABLET PO ONE (16:28)
--- NOTE | 2018-03-26 18:18 | Internal Med History&Physical ---
Date of Encounter: 03/26/18 Time of Encounter: 18:00 Internal Medicine - H&P: HPI Chief complaint: Shortness of breath/productive cough Admitted From: Home Plans for Post Hospital Care: Home History of present illness: Patient is a 57-year-old female with past medical history significant for asthma , CAD, DM, HTN, HLD and CKD stage III who presents to the ER on 03/26/18 due to productive cough and shortness of breath. Patient reports that her symptoms started 6 days ago with right ear pain and hoarseness. Patient also reported of shortness of breath and productive cough. Patient was evaluated at urgent care and treated with a course of Z-Maximino. Patient reports however that her symptoms were not improved and decided to go to urgent care again for reevaluation and was recommended that she come to [facility] ER for further evaluation for possible heart failure. In the ER, patient was found to have leukocytosis with white blood count of 18.9. Patient was also found to have troponin 0.06 and chest x-ray reviewed by myself revealed right lower lobe infiltrate. She was given 1 dose of IV Levaquin and DuoNeb in the ER and will be admitted to the medical surgical floor for acute hypoxic respiratory failure secondary to community acquired pneumonia. Past Med Surg Social Fam HX - Past Medical History Medical history: asthma, coronary artery disease, diabetes, hyperlipidemia, hypertension, renal disease Psychiatric history: anxiety, depression - Past Surgical History Surgical History: , cholecystectomy, hysterectomy Additional surgical history: botox for bladder - Social History Smoking Status: Current every day smoker Smokeless Tobacco Status: No Alcohol use: none Drug use: none - Family History Mother Living Status: Still Living Father Living Status: Still Living Hx Family Cardiac Disorders: Yes (dad had UT) Hx Family Respiratory Disorders: No Hx Family Cancer: No Hx Family GI Disorders: No Hx Family Endocrine Disorder: No Hx Family Neuromuscular Disorders: No Hx Family Neurologic Disorders: No Hx Family HEENT Disorders: No Hx Family Autoimmune Disorders: No Internal Medicine - H&P: Meds Carvedilol [Coreg] 12.5 mg PO BID 10/31/15 [History] Cholecalciferol (Vitamin D3) [Vitamin D3] 50,000 unit PO TUSA 10/31/15 [History] FLUoxetine HCl [Prozac] 40 mg PO DAILY 10/31/15 [History] Furosemide [Lasix] 10 mg PO DAILY 10/31/15 [History] Omeprazole 20 mg PO DAILY 10/31/15 [History] Triamterene/HCTZ 37.5/25mg [Dyazide] 1 tab PO DAILY #0 10/31/15 [History] Albuterol Sulfate [Proair Hfa] 2 puff IH Q4H PRN 06/06/16 [History] Aspirin 81 mg PO DAILY 06/06/16 [History] Ferrous Sulfate 325 mg PO DAILY 09/20/16 [History] lamoTRIgine [Lamictal] 200 mg PO DAILY 09/20/16 [History] traZODone [TraZODone] 50 mg PO HS 09/20/16 [History] clonazePAM [Klonopin] 0.5 mg PO BID PRN 11/01/17 [History] metFORMIN [Glucophage] 1,000 mg PO BID 11/01/17 [History] Cefdinir [Omnicef] 300 mg PO BID 03/26/18 [History] Insulin Glargine,Hum.rec.anlog [Basaglar Kwikpen U-100] 37 unit SQ BID 03/26/18 [History] Insulin LISPRO [Admelog] 18 unit SQ TIDWM 03/26/18 [History] Lovastatin [Lovastatin] 40 mg PO HS 03/26/18 [History] 3 Allergy/AdvReac Type Severity Reaction Status Date / Time Penicillins Allergy Hives Verified 03/26/18 16:57 All Systems PM: A 10-system review of systems was performed and is negative for pertinent findings except as documented above in the HPI. - Constitutional Vitals: Temp Pulse Resp BP Pulse Ox 98.2 F 76 14 127/67 91 03/26/18 12:42 03/26/18 12:42 03/26/18 13:40 03/26/18 12:42 03/26/18 13:40 General appearance: Present: A&O X 3, no acute distress Exam: As below - Eye Eye exam: Present: normal appearance - ENT ENT exam: Present: mucous membranes moist - Respiratory Respiratory exam: Present: wheezes. Absent: accessory muscle use, decreased breath sounds, respiratory distress - Cardiovascular Cardiovascular exam: Present: RRR, +S1, +S2. Absent: diastolic murmur, gallop, rubs, systolic murmur - GI/Abdominal GI/Abdominal exam: Present: normal bowel sounds, soft, no peritoneal signs. Absent: distended, tenderness - Extremities Exam Extremities exam: Absent: pedal edema - Neurological Exam Neurological exam: Present: alert, oriented X3 - Psychiatric Psychiatric exam: Present: normal mood - Skin Skin exam: Present: normal color Internal Med - H&P Results - Labs CBC & Chem 7: 03/26/18 13:54 03/26/18 13:54 - Assessment and plan (1) CAP (community acquired pneumonia) Current Visit: Yes Status: Acute Assessment and plan: In the ER, patient was found to have leukocytosis with white blood count of 18.9 and chest x-ray reviewed by myself revealed right lower lobe infiltrate. Will continue IV Levaquin and supplemental oxygenation as needed Qualifiers: Lung location: lower lobe of lung Qualified Code(s): J18.1 - Lobar pneumonia, unspecified organism (2) Acute respiratory failure with hypoxia Current Visit: Yes Status: Acute Assessment and plan: Patient with acute hypoxic respiratory failure secondary to pneumonia above. CTPA ordered in the ER pending Will wean supplemental oxygenation as tolerates Will also place patient on scheduled DuoNeb's due to expiratory wheezes (3) Elevated troponin Current Visit: Yes Status: Acute Assessment and plan: Patient with elevated troponin of 0.06 suspect secondary to demand ischemia due to the above. Will trend serial troponins and monitor on telemetry. (4) Iron deficiency anemia Current Visit: No Status: Acute Assessment and plan: Continue home dose of supplemental iron Qualifiers: Iron deficiency anemia type: chronic blood loss Qualified Code(s): D50.0 - Iron deficiency anemia secondary to blood loss (chronic) (5) Chronic kidney disease, stage 3 Current Visit: No Status: Chronic Assessment and plan: Patient's serum creatinine 1.43 on admission; baseline appears to be 1.3 Will continue to monitor (6) Diabetes mellitus Current Visit: No Status: Chronic Assessment and plan: Will continue patient's home medications Qualifiers: Diabetes mellitus type: type 2 Diabetes mellitus terminal supervisor insulin use: with senior care use Diabetes mellitus complication status: with kidney complications Diabetes mellitus complication detail: with chronic kidney disease Chronic kidney disease stage: stage 3 (moderate) Qualified Code(s): E11.22 - Type 2 diabetes mellitus with diabetic chronic kidney disease; N18.3 - Chronic kidney disease, stage 3 (moderate); N18.3 - Chronic kidney disease, stage 3 (moderate); Z79.4 - rat exterminator (current) use of insulin; Z79.4 - assisted (current) use of insulin; Z79.4 - assisted (current) use of insulin; Z79.4 - assisted (current) use of insulin (7) Hypertension Current Visit: No Status: Chronic Assessment and plan: Continue home medications Qualifiers: Hypertension type: essential hypertension Qualified Code(s): I10 - Essential (primary) hypertension (8) Morbid obesity with BMI of 40.0-44.9, adult Current Visit: No Status: Chronic Assessment and plan: Lifestyle modifications (9) DVT prophylaxis Current Visit: No Status: Acute Assessment and plan: Subcutaneous heparin - Time Spent With Patient Total time spent is greater than 50% in coordination of care (as documented) at patient's floor/unit and/or counseling patient:
[2018-03-26] MEDS ORDERED: Naloxone 0.4 MG/ML INJ IVP PRN (18:26)
[2018-03-26] MEDS ORDERED: Levofloxacin 750 MG/150 ML 750 MG/150 ML BAG IVPB SCH (19:00)
[2018-03-26] MEDS ORDERED: Isovue-370 500 ML INFUS..BTL IV ONE (19:44)
[2018-03-26] MEDS: Ipratropium/Albuterol Neb 3 ML IH SCH (20:35)
[2018-03-26] MEDS: traZODone 50 MG TABLET PO SCH (22:04)
[2018-03-26] MEDS: clonazePAM 0.5 MG TABLET PO PRN (22:04)
[2018-03-26] MEDS: Insulin DETEMIR 100 UNIT/ML X5UNITS SQ SCH (22:05)
[2018-03-27] MEDS: Ipratropium/Albuterol Neb 3 ML IH SCH ×7 (00:34→23:22)
[2018-03-27 01:46] LABS: Basophils # 0.1 K/mcL (0.0-0.2); Basophils % 0.5 %; Eosinophils # 0.8 K/mcL (0.0-0.6); Eosinophils % 4.9 %; Hematocrit 37.6 % (35.3-44.9); Hemoglobin 12.6 g/dL (11.5-15.4); Immature Granulocytes % 0.8 % (0-4); Lymphocytes # 2.9 K/mcL (0.6-4.6); Lymphocytes % 18.5 %; Mean Corpuscular HGB Conc 33.5 g/dL (31.6-35.5); Mean Corpuscular Hemoglobin 29.3 pg (28.0-33.3); Mean Corpuscular Volume 87.4 fL (83.0-100.0); Mean Platelet Volume 9.3 fL (9.4-12.4); Monocytes # 0.9 K/mcL (0.0-1.3); Monocytes % 5.8 %; Platelet Count 264 K/mcL (140-400); Red Cell Distribution Width 14.4 % (11.5-14.5); Segmented Neutrophils % 69.5 %
[2018-03-27 02:03] LABS: Neutrophils # 10.8 K/mcL (1.6-8.9)
[2018-03-27 02:10] LABS: Calcium 8.3 mg/dL (8.6-10.3); Potassium 4.5 mEq/L (3.5-5.1)
[2018-03-27] MEDS: *HR* Heparin 5,000 UNIT/ML VIAL SQ SCH ×2 (06:07→18:59)
[2018-03-27] MEDS: Insulin LISPRO 300 UNITS/3 ML VIAL SQ SCH ×3 (09:16→17:38)
[2018-03-27] MEDS: lamoTRIgine 100 MG TABLET PO SCH (09:27)
[2018-03-27] MEDS: FLUoxetine 20 MG CAPSULE PO SCH (09:27)
[2018-03-27] MEDS: Insulin DETEMIR 100 UNIT/ML X5UNITS SQ SCH ×2 (09:27→20:46)
[2018-03-27] MEDS: Furosemide 20 MG TABLET PO SCH (09:28)
[2018-03-27] MEDS: Aspirin 81 MG TAB.CHEW PO SCH (09:28)
--- NOTE | 2018-03-27 11:03 | Internal Med Progress Note ---
Hospitalist Progress Note - Encounter Date of Encounter: 03/27/18 Time of Encounter: 11:00 - Subjective Interval History: Patient reports of improvement in shortness of breath this morning but still requires supplemental oxygenation - Exam Vitals: Temp Pulse Resp BP Pulse Ox 98.2 F 69 18 134/84 92 03/27/18 08:25 03/27/18 08:25 03/27/18 08:25 03/27/18 08:25 03/27/18 08:25 Exam: Gen.: Nonacute distress, alert and oriented 3 ENT: Mucosal membranes moist Respiratory: Lungs are clear to auscultation bilaterally without any wheezing rhonchi or rales Cardiovascular: Normal S1 and S2 regular rate rhythm no murmurs rubs or gallops Abdomen: Soft, nontender and nondistended with positive bowel sounds Extremities: No lower extremity edema Skin: Normal colorw - Assessment and Plan (1) CAP (community acquired pneumonia) Current Visit: Yes Status: Acute Assessment and Plan: On admission, patient was found to have leukocytosis with white blood count of 18.9 and chest x-ray reviewed by myself revealed right lower lobe infiltrate. Leukocytosis has improved today and patient afebrile since starting IV antibiotics Will continue day 2 of IV Levaquin and supplemental oxygenation as needed (2) Acute respiratory failure with hypoxia Current Visit: Yes Status: Acute Assessment and Plan: Patient with acute hypoxic respiratory failure secondary to pneumonia above. CTPA/VQ scan ordered in the ER on 03/26/18 and still pending as morning (03/27/18) Will wean supplemental oxygenation as tolerates Continue scheduled DuoNeb's due to expiratory wheezes (3) Elevated troponin Current Visit: Yes Status: Acute Assessment and Plan: Elevated troponins has now resolved and within normal limits; suspect secondary to demand ischemia due to the above. (4) Iron deficiency anemia Current Visit: No Status: Acute Assessment and Plan: Continue home dose of supplemental iron (5) Chronic kidney disease, stage 3 Current Visit: No Status: Chronic Assessment and Plan: Patient's serum creatinine 1.55 on admission; baseline appears to be 1.3 Will continue to monitor (6) Diabetes mellitus Current Visit: No Status: Chronic Assessment and Plan: Will continue patient's home medications (7) Hypertension Current Visit: No Status: Chronic Assessment and Plan: Continue home medications (8) Morbid obesity with BMI of 40.0-44.9, adult Current Visit: No Status: Chronic Assessment and Plan: Lifestyle modifications DVT Prophylaxis: Subcutaneous heparin - Time Spent with Patient Total time spent is greater than 50% in coordination of care (as documented) at patient's floor/unit and/or counseling patient: Internal Medicine: Result - Labs CBC & Chem 7: 03/27/18 01:34 03/27/18 01:34 Labs: Short CBC 03/27/18 Range/Units 01:34 WBC 15.6 H (4.3-11.1) K/mcL Hgb 12.6 (11.5-15.4) g/dL Hct 37.6 (35.3-44.9) % Plt Count 264 (140-400) K/mcL Neutrophils # 10.8 H (1.6-8.9) K/mcL BMP 03/27/18 01:34 Sodium 135 L Potassium 4.5 Chloride 102 Carbon Dioxide 23 BUN 24 H Creatinine 1.55 H Glucose 173 H Calcium 8.3 L Cardiac Enzymes 03/26/18 03/27/18 03/27/18 Range/Units 20:06 01:34 08:19 Troponin I 0.07 H* < 0.03 < 0.03 (< 0.04) ng/mL - ABG Interpretation ABG results: PT/INR, D-dimer D-Dimer 604 ng/mLFEU (0-500) H 03/26/18 21:04 Consult Discharge Plan - Plan Referrals: Kavitha Yu DO [Primary Care Provider] - (1) CAP (community acquired pneumonia) Qualifiers: Lung location: lower lobe of lung (4) Iron deficiency anemia Qualifiers: Iron deficiency anemia type: chronic blood loss Qualified Code(s): D50.0 - Iron deficiency anemia secondary to blood loss (chronic) (6) Diabetes mellitus Qualifiers: Diabetes mellitus type: type 2 Diabetes mellitus intermediate card tender insulin use: with intermediate card tender use Diabetes mellitus complication status: with kidney complications Diabetes mellitus complication detail: with chronic kidney disease Chronic kidney disease stage: stage 3 (moderate) Qualified Code(s): E11.22 - Type 2 diabetes mellitus with diabetic chronic kidney disease; N18.3 - Chronic kidney disease, stage 3 (moderate); Z79.4 - FPC (current) use of insulin (7) Hypertension Qualifiers: Hypertension type: essential hypertension Qualified Code(s): I10 - Essential (primary) hypertension
--- NOTE | 2018-03-27 17:15 | Electrocardiograph Report ---
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
[2018-03-27] MEDS: traZODone 50 MG TABLET PO SCH (20:46)
[2018-03-28] MEDS: Ipratropium/Albuterol Neb 3 ML IH SCH ×6 (04:01→23:21)
[2018-03-28] MEDS: *HR* Heparin 5,000 UNIT/ML VIAL SQ SCH ×2 (05:34→18:14)
--- NOTE | 2018-03-28 07:38 | Internal Med Progress Note ---
Hospitalist Progress Note - Encounter Date of Encounter: 03/28/18 Time of Encounter: 11:00 - Subjective Interval History: Patient presents with shortness of breath and found to have acute on chronic hypoxic respiratory failure secondary to community acquired pneumonia. Patient reports of feeling much better this morning and not endorsing any shortness of breath. Patient still requiring increased amounts of O2 supplementation however. Her leukocytosis is improving and she is afebrile. - Exam Vitals: Temp Pulse Resp BP Pulse Ox 98.2 F 72 18 163/80 92 03/28/18 06:59 03/28/18 06:59 03/28/18 07:22 03/28/18 06:59 03/28/18 07:22 Exam: Gen.: Nonacute distress, alert and oriented 3 ENT: Mucosal membranes moist Respiratory: Lungs are clear to auscultation bilaterally without any wheezing rhonchi or rales Cardiovascular: Normal S1 and S2 regular rate rhythm no murmurs rubs or gallops Abdomen: Soft, nontender and nondistended with positive bowel sounds Extremities: No lower extremity edema Skin: Normal colorw - Assessment and Plan (1) CAP (community acquired pneumonia) Current Visit: Yes Status: Acute Assessment and Plan: On admission, patient was found to have leukocytosis with white blood count of 18.9 and chest x-ray reviewed by myself revealed right lower lobe infiltrate. Leukocytosis continues to improve and patient afebrile; However, patient continues to require increased O2 supplementation Plan for today is to wean O2 supplementation as tolerates Will continue day 3 of IV Levaquin (2) Acute respiratory failure with hypoxia Current Visit: Yes Status: Acute Assessment and Plan: Resolved; patient presented with acute hypoxic respiratory failure secondary to pneumonia above. VQ scan with low probability for PE Patient still requiring increased O2 supplementation this morning Continue scheduled DuoNeb's due to expiratory wheezes Plan for today is to wean off supplemental oxygenation as tolerates (3) Elevated troponin Current Visit: Yes Status: Acute Assessment and Plan: Elevated troponins has now resolved and within normal limits; suspect secondary to demand ischemia due to the above. (4) Iron deficiency anemia Current Visit: No Status: Acute Assessment and Plan: Continue home dose of supplemental iron (5) Chronic kidney disease, stage 3 Current Visit: No Status: Chronic Assessment and Plan: Patient's serum creatinine 1.20 on admission; baseline appears to be 1.3 Will continue to monitor (6) Diabetes mellitus Current Visit: No Status: Chronic Assessment and Plan: Will continue patient's home medications (7) Hypertension Current Visit: No Status: Chronic Assessment and Plan: Continue home medications (8) Morbid obesity with BMI of 40.0-44.9, adult Current Visit: No Status: Chronic Assessment and Plan: Lifestyle modifications DVT Prophylaxis: Subcutaneous heparin - Time Spent with Patient Total time spent is greater than 50% in coordination of care (as documented) at patient's floor/unit and/or counseling patient: Internal Medicine: Result - Labs CBC & Chem 7: 03/28/18 07:45 03/28/18 07:45 Labs: Cardiac Enzymes 03/27/18 Range/Units 08:19 Troponin I < 0.03 (< 0.04) ng/mL - ABG Interpretation ABG results: PT/INR, D-dimer D-Dimer 604 ng/mLFEU (0-500) H 03/26/18 21:04 Consult Discharge Plan - Plan Referrals: Kavitha Yu DO [Primary Care Provider] - (1) CAP (community acquired pneumonia) Qualifiers: Lung location: lower lobe of lung (4) Iron deficiency anemia Qualifiers: Iron deficiency anemia type: chronic blood loss Qualified Code(s): D50.0 - Iron deficiency anemia secondary to blood loss (chronic) (6) Diabetes mellitus Qualifiers: Diabetes mellitus type: type 2 Diabetes mellitus residential insulin use: with residential use Diabetes mellitus complication status: with kidney complications Diabetes mellitus complication detail: with chronic kidney disease Chronic kidney disease stage: stage 3 (moderate) Qualified Code(s): E11.22 - Type 2 diabetes mellitus with diabetic chronic kidney disease; N18.3 - Chronic kidney disease, stage 3 (moderate); Z79.4 - ferry terminal agent (current) use of insulin (7) Hypertension Qualifiers: Hypertension type: essential hypertension Qualified Code(s): I10 - Essential (primary) hypertension
[2018-03-28 08:13] LABS: Basophils # 0.1 K/mcL (0.0-0.2); Basophils % 0.5 %; Eosinophils # 0.7 K/mcL (0.0-0.6); Eosinophils % 4.4 %; Hematocrit 34.5 % (35.3-44.9); Hemoglobin 11.5 g/dL (11.5-15.4); Immature Granulocytes % 0.5 % (0-4); Lymphocytes # 2.3 K/mcL (0.6-4.6); Lymphocytes % 15.7 %; Mean Corpuscular HGB Conc 33.3 g/dL (31.6-35.5); Mean Corpuscular Hemoglobin 28.4 pg (28.0-33.3); Mean Corpuscular Volume 85.2 fL (83.0-100.0); Mean Platelet Volume 9.2 fL (9.4-12.4); Monocytes # 0.8 K/mcL (0.0-1.3); Monocytes % 5.3 %; Platelet Count 301 K/mcL (140-400); Red Blood Count 4.05 M/mcL (3.82-4.97); Segmented Neutrophils % 73.6 %
[2018-03-28] MEDS: Furosemide 20 MG TABLET PO SCH (08:20)
[2018-03-28] MEDS: FLUoxetine 20 MG CAPSULE PO SCH (08:20)
[2018-03-28] MEDS: Aspirin 81 MG TAB.CHEW PO SCH (08:21)
[2018-03-28] MEDS: Insulin LISPRO 300 UNITS/3 ML VIAL SQ SCH ×3 (08:21→18:05)
[2018-03-28] MEDS: lamoTRIgine 100 MG TABLET PO SCH (08:21)
[2018-03-28] MEDS: Insulin DETEMIR 100 UNIT/ML X5UNITS SQ SCH ×2 (08:25→20:30)
[2018-03-28 08:36] LABS: Calcium 8.6 mg/dL (8.6-10.3); Potassium 4.5 mEq/L (3.5-5.1)
[2018-03-28] MEDS: clonazePAM 0.5 MG TABLET PO PRN (18:13)
[2018-03-28] MEDS: traZODone 50 MG TABLET PO SCH (20:29)
[2018-03-28] MEDS ORDERED: Levofloxacin 750 MG/150 ML 750 MG/150 ML BAG IVPB SCH (22:00)
[2018-03-29] MEDS: Ipratropium/Albuterol Neb 3 ML IH SCH ×4 (03:31→16:44)
[2018-03-29] MEDS: *HR* Heparin 5,000 UNIT/ML VIAL SQ SCH ×2 (05:04→18:42)
[2018-03-29 08:09] LABS: Basophils # 0.1 K/mcL (0.0-0.2); Basophils % 0.5 %; Eosinophils # 0.7 K/mcL (0.0-0.6); Eosinophils % 4.8 %; Hematocrit 33.3 % (35.3-44.9); Hemoglobin 11.3 g/dL (11.5-15.4); Immature Granulocytes % 0.5 % (0-4); Lymphocytes # 2.5 K/mcL (0.6-4.6); Lymphocytes % 17.5 %; Mean Corpuscular HGB Conc 33.9 g/dL (31.6-35.5); Mean Corpuscular Hemoglobin 28.7 pg (28.0-33.3); Mean Corpuscular Volume 84.5 fL (83.0-100.0); Mean Platelet Volume 9.1 fL (9.4-12.4); Monocytes # 0.8 K/mcL (0.0-1.3); Monocytes % 5.9 %; Platelet Count 363 K/mcL (140-400); Red Blood Count 3.94 M/mcL (3.82-4.97); Red Cell Distribution Width 13.9 % (11.5-14.5); Segmented Neutrophils % 70.8 %
[2018-03-29 08:21] LABS: BUN/Creatinine Ratio 21 (6-26); Blood Urea Nitrogen 23 mg/dL (6-20); Calcium 8.9 mg/dL (8.6-10.3); Carbon Dioxide 26 mEq/L (23-29); Chloride 101 mEq/L (98-107); Glucose 138 mg/dL (70-105); Osmolality,Calculated 284 (280-300); Potassium 4.2 mEq/L (3.5-5.1); Sodium 134 mEq/L (136-145); eGFR For Non-African Americans 51 (> 60)
[2018-03-29] MEDS: FLUoxetine 20 MG CAPSULE PO SCH (09:32)
[2018-03-29] MEDS: Furosemide 20 MG TABLET PO SCH (09:33)
[2018-03-29] MEDS: Aspirin 81 MG TAB.CHEW PO SCH (09:33)
[2018-03-29] MEDS: lamoTRIgine 100 MG TABLET PO SCH (09:33)
[2018-03-29] MEDS: Insulin LISPRO 300 UNITS/3 ML VIAL SQ SCH ×3 (09:34→17:28)
[2018-03-29] MEDS: Insulin DETEMIR 100 UNIT/ML X5UNITS SQ SCH (09:38)
[2018-03-29 15:22] VITALS: BP 157/76
--- NOTE | 2018-03-29 16:16 | Discharge Summary ---
- NOTES TO OUTPATIENT PROVIDER Notes to Outpatient Provider: Follow-up with primary care provider Orders not resulted at time of discharge: Pending orders 03/26/18 18:29 Sputum Culture [Culture,Sputum with Gram Stain] [] Routine Date of Encounter: 03/29/18 Time of Encounter: 11:00 - Discharge Diagnosis (1) CAP (community acquired pneumonia) Priority: Primary Status: Acute Qualifiers: Lung location: lower lobe of lung Qualified Code(s): J18.1 - Lobar pneumonia, unspecified organism (2) Acute respiratory failure with hypoxia Priority: Primary Status: Acute (3) Elevated troponin Priority: Primary Status: Acute (4) Iron deficiency anemia Priority: Secondary Status: Acute Qualifiers: Iron deficiency anemia type: chronic blood loss Qualified Code(s): D50.0 - Iron deficiency anemia secondary to blood loss (chronic) (5) Chronic kidney disease, stage 3 Priority: Secondary Status: Chronic (6) Diabetes mellitus Priority: Secondary Status: Chronic Qualifiers: Diabetes mellitus type: type 2 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 [employer] insulin use: with superintendent [employer] use Diabetes mellitus complication status: with kidney complications Diabetes mellitus complication detail: with chronic kidney disease Chronic kidney disease stage: stage 3 (moderate) Qualified Code(s): E11.22 - Type 2 diabetes mellitus with diabetic chronic kidney disease; N18.3 - Chronic kidney disease, stage 3 (moderate); Z79.4 - USP (current) use of insulin (7) Hypertension Priority: Secondary Status: Chronic Qualifiers: Hypertension type: essential hypertension Qualified Code(s): I10 - Essential (primary) hypertension (8) Morbid obesity with BMI of 40.0-44.9, adult Priority: Secondary Status: Chronic Hospital course: Patient is a 57-year-old female with past medical history significant for asthma , CAD, DM, HTN, HLD and CKD stage III who presents to the ER on 03/26/18 due to productive cough and shortness of breath. Patient reports that her symptoms started 6 days ago with right ear pain and hoarseness. Patient also reported of shortness of breath and productive cough. Patient was evaluated at urgent care and treated with a course of Z-Maximino. Patient reports however that her symptoms were not improved and decided to go to urgent care again for reevaluation and was recommended that she come to [facility] ER for further evaluation for possible heart failure. In the ER, patient was found to have leukocytosis with white blood count of 18.9. Patient was also found to have troponin 0.06 and chest x-ray reviewed by myself revealed right lower lobe infiltrate. She was given 1 dose of IV Levaquin and DuoNeb in the ER and will be admitted to the medical surgical floor for acute hypoxic respiratory failure secondary to community acquired pneumonia. During patients hospital stay her acute hypoxic respiratory failure resolved after treatment with IV Levaquin and dual nebs. Patient will be discharged to complete a 5 day course of Levaquin and to follow- up with primary care provider. - Time Spent with Patient Total time spent providing and/or coordinating discharge services: Less than 30 minutes - Discharge Medications Prescriptions: levoFLOXacin [Levaquin] 750 mg PO DAILY 5 Days #5 tablet Home Medications: Carvedilol [Coreg] 12.5 mg PO BID 10/31/15 [History] Cholecalciferol (Vitamin D3) [Vitamin D3] 50,000 unit PO TUSA 10/31/15 [History] FLUoxetine HCl [Prozac] 40 mg PO DAILY 10/31/15 [History] Furosemide [Lasix] 10 mg PO DAILY 10/31/15 [History] Omeprazole 20 mg PO DAILY 10/31/15 [History] Triamterene/HCTZ 37.5/25mg [Dyazide] 1 tab PO DAILY #0 10/31/15 [History] Albuterol Sulfate [Proair Hfa] 2 puff IH Q4H PRN 06/06/16 [History] Aspirin 81 mg PO DAILY 06/06/16 [History] Ferrous Sulfate 325 mg PO DAILY 09/20/16 [History] lamoTRIgine [Lamictal] 200 mg PO DAILY 09/20/16 [History] traZODone [TraZODone] 50 mg PO HS 09/20/16 [History] clonazePAM [Klonopin] 0.5 mg PO BID PRN 11/01/17 [History] metFORMIN [Glucophage] 1,000 mg PO BID 11/01/17 [History] Insulin Glargine,Hum.rec.anlog [Basaglar Kwikpen U-100] 37 unit SQ BID 03/26/18 [History] Insulin LISPRO [Admelog] 18 unit SQ TIDWM 03/26/18 [History] Lovastatin 40 mg PO HS 03/26/18 [History] levoFLOXacin [Levaquin] 750 mg PO DAILY 5 Days #5 tablet 03/29/18 [Rx] Allergies/Adverse Reactions: 3 Allergy/AdvReac Type Severity Reaction Status Date / Time Penicillins Allergy Hives Verified 03/26/18 16:57 Date of admission: 03/26/18 18:26 Primary care physician: Kavitha Yu DO - Constitutional Vitals: Temp Pulse Resp BP Pulse Ox 98.0 F 65 17 157/76 100 03/29/18 15:21 03/29/18 15:21 03/29/18 15:21 03/29/18 15:21 03/29/18 15:21 General appearance: Present: A&O X 3, no acute distress Exam: Respiratory: Lungs are clear to auscultation bilaterally without any wheezing rhonchi or rales - Patient Status Disposition: Home, Self-Care - Discharge Instructions Follow Up With: Kavitha Yu DO [Primary Care Provider] - (web requested 03/29/2018)
--- NOTE | 2018-03-29 16:33 | Physician Discharge Referral ---
Home Health/Hosp Referral Info Transfer to: Home Health - Diagnosis (1) CAP (community acquired pneumonia) Status: Acute (2) Acute respiratory failure with hypoxia Status: Acute (3) Elevated troponin Status: Acute (4) Iron deficiency anemia Status: Acute (5) Chronic kidney disease, stage 3 Status: Chronic (6) Diabetes mellitus Status: Chronic (7) Hypertension Status: Chronic (8) Morbid obesity with BMI of 40.0-44.9, adult Status: Chronic - Respiratory Orders Smoking Cessation: Smoking cessation has been advised. For more information, call the [place] Tobacco Quit Line at 2-932-WVOJ-NOW. - Services Needed Following services are medically necessary services: Nursing, Physical Therapy - Transfer Medications Prescriptions: levoFLOXacin [Levaquin] 750 mg PO DAILY 5 Days #5 tablet Home Medications: Carvedilol [Coreg] 12.5 mg PO BID 10/31/15 [History] Cholecalciferol (Vitamin D3) [Vitamin D3] 50,000 unit PO TUSA 10/31/15 [History] FLUoxetine HCl [Prozac] 40 mg PO DAILY 10/31/15 [History] Furosemide [Lasix] 10 mg PO DAILY 10/31/15 [History] Omeprazole 20 mg PO DAILY 10/31/15 [History] Triamterene/HCTZ 37.5/25mg [Dyazide] 1 tab PO DAILY #0 10/31/15 [History] Albuterol Sulfate [Proair Hfa] 2 puff IH Q4H PRN 06/06/16 [History] Aspirin 81 mg PO DAILY 06/06/16 [History] Ferrous Sulfate 325 mg PO DAILY 09/20/16 [History] lamoTRIgine [Lamictal] 200 mg PO DAILY 09/20/16 [History] traZODone [TraZODone] 50 mg PO HS 09/20/16 [History] clonazePAM [Klonopin] 0.5 mg PO BID PRN 11/01/17 [History] metFORMIN [Glucophage] 1,000 mg PO BID 11/01/17 [History] Insulin Glargine,Hum.rec.anlog [Basaglar Kwikpen U-100] 37 unit SQ BID 03/26/18 [History] Insulin LISPRO [Admelog] 18 unit SQ TIDWM 03/26/18 [History] Lovastatin 40 mg PO HS 03/26/18 [History] levoFLOXacin [Levaquin] 750 mg PO DAILY 5 Days #5 tablet 03/29/18 [Rx] Allergies/Adverse Reactions: 3 Allergy/AdvReac Type Severity Reaction Status Date / Time Penicillins Allergy Hives Verified 03/26/18 16:57 Certification: Further, I certify that my clinical findings support that this patient is homebound (i.e. absences from home require considerable and taxing effort and are for medical reasons or holiness services or infrequently or short duration when for other reasons) because: Homebound Reason: Patient requires assistance of a person or device to safely leave home Attestation: My signature below is to certify that this patient is under my care and that I, or nurse practitioner, or a physician's surgical physician assistant working with me, has a face-to -face encounter with this patient.
[2018-03-29] MEDS ORDERED: Levofloxacin 750 MG/150 ML 750 MG/150 ML BAG IVPB SCH (22:00)
== END 2018-03-29 20:40 | disposition home or self-care (01) | DRG 139 ==
LOC: EMEROOARM 12:33 → 2ANU 12:33 → SUATTDRO 18:26 → 2ANU 19:30
PROVIDERS: ADMIT Student in an Organized Health Care Education/Training Program; ATTEND Hospitalist

== ENCOUNTER 2018-08-19 10:35 | Observation (INO) ==
[2018-08-19] MEDS ORDERED: *HR* Nalbuphine 10 MG/ML AMPUL IM ONE (11:57)
--- NOTE | 2018-08-19 11:58 | Emergency Department Note ---
Disposition Clinical Impression: Sigmoid diverticulitis UTI (urinary tract infection) Qualifiers: Urinary tract infection type: acute cystitis Hematuria presence: with hematuria Qualified Code(s): N30.01 - Acute cystitis with hematuria Disposition: Admitted As Inpatient Condition: Fair Referrals: Kavitha Yu DO [Primary Care Provider] - Forms: ED Satisfaction Letter Time of Disposition: 15:42 General Adult HPI - General Chief complaint: ED Back Pain/Injury Stated complaint: Pulled muscle/seen at last week Time Seen by Provider: 08/19/18 11:12 Source: patient Mode of arrival: private vehicle Limitations: no limitations Nursing Notes Reviewed: Yes Vital Signs Reviewed: Yes - History of Present Illness HPI Narrative: Patient c/o Pain in Right upper abdomen for a little over a week. No trauma. Went to Urgent Care and was diagnosed with a muscle strain. Still having pain. No fever/chills, vomiting or diarrhea. Mild nausea. Intermittent dysuria, no hematuria. Pt Subjective Complaint: pain in right side (Patient points to the RUQ) Onset (ago): week(s) Location: abdomen Radiation: non-radiation Pain Severity: moderate Pain Scale: 5 Quality: stabbing, sharp Consistency: intermittent, Worsening Improves with: nothing Worsens with: movement, other (lying flat or lying on side) Associated symptoms: Denies: confusion, chest pain, cough, diaphoresis, fever/chills, headaches, loss of appetite, malaise, rash, seizure, shortness of breath, syncope, weakness Treatments Prior to Arrival: none - Related Data Home Medications Medication Instructions Recorded Confirmed Carvedilol [Coreg] 12.5 mg PO BID 10/31/15 03/26/18 Cholecalciferol (Vitamin D3) 50,000 unit PO TUSA 10/31/15 03/26/18 [Vitamin D3] FLUoxetine HCl [Prozac] 40 mg PO DAILY 10/31/15 03/26/18 Furosemide [Lasix] 10 mg PO DAILY 10/31/15 03/26/18 Omeprazole 20 mg PO DAILY 10/31/15 03/26/18 Triamterene/HCTZ 37.5/25mg 1 tab PO DAILY #0 10/31/15 03/26/18 [Dyazide] Albuterol Sulfate [Proair Hfa] 2 puff IH Q4H PRN 06/06/16 03/26/18 Aspirin 81 mg PO DAILY 06/06/16 03/26/18 lamoTRIgine [Lamictal] 200 mg PO DAILY 09/20/16 03/26/18 clonazePAM [Klonopin] 0.5 mg PO BID PRN 11/01/17 03/26/18 metFORMIN [Glucophage] 1,000 mg PO BID 11/01/17 03/26/18 Insulin Glargine,Hum.rec.anlog 37 unit SQ BID 03/26/18 03/26/18 [Basaglar Kwikpen U-100] Insulin LISPRO [Admelog] 18 unit SQ TIDWM 03/26/18 03/26/18 Lovastatin 40 mg PO HS 03/26/18 03/26/18 Gabapentin Enacarbil 07/23/18 Loperamide HCl 07/23/18 Losartan Potassium 07/23/18 Previous Rx's Medication Instructions Recorded Clotrimazole/Betameth Dip CRM 1 appl TP BID #1 tube 07/23/18 [Lotrisone CRM] GuaiFENesin/Dextromethorphan 10 ml PO QID PRN #240 ml 07/30/18 [Tussin Dm Syrup] Acetaminophen [Tylenol] 1,000 mg PO Q4-6H PRN #20 tablet 08/06/18 Cyclobenzaprine [Flexeril] 10 mg PO HS #10 tablet 08/06/18 Allergies Allergy/AdvReac Type Severity Reaction Status Date / Time Penicillins Allergy Hives Verified 08/06/18 12:24 All systems ED: reviewed and negative except as stated. Review of Systems: As Per HPI Constitutional: Denies: fever, chills, weakness Cardiovascular: Denies: chest pain, palpitations, dyspnea on exertion, orthopnea Respiratory: Denies: cough, dyspnea, wheezes Gastrointestinal: Reports: as per HPI, abdominal pain, nausea. Denies: vomiting, diarrhea, constipation Genitourinary: Reports: as per HPI, dysuria, frequency. Denies: urgency, hematuria, discharge Musculoskeletal: Denies: back pain, neck pain, joint swelling, arthralgia Integumentary: Reports: lesions (poorly healing ulcer on abdomen - LLQ). Denies: rash, pruritus Neurological: Denies: headache, weakness, confusion, vertigo Hematological/Lymphatic: Denies: easy bleeding, easy bruising, lymphadenopathy Past Medical History - Past Medical History Attestation: Yes The following information was validated with the patient. Source: patient Medical history: Reports: diabetes, renal disease, other Surgical history: Reports: , cholecystectomy (Open - 1984), hysterectomy Psychiatric history: Reports: anxiety, depression FR[employer] history: Reports: other (JANIS) - Social History Smoking Status: Current every day smoker Smokeless Tobacco Status: No Alcohol use: Reports: none Drug use: Reports: none Physical Exam - General Limitations: no limitations General appearance: alert, in no apparent distress - Head Head exam: atraumatic, normocephalic, normal inspection - Eye Eye exam: Present: normal appearance. Absent: scleral icterus, conjunctival injection, periorbital swelling - ENT ENT exam: mucous membranes dry - Neck Neck exam: Present: normal inspection, full ROM, trachea midline. Absent: meningismus - Respiratory Respiratory exam: Present: normal lung sounds bilaterally. Absent: respiratory distress, wheezes, stridor - Cardiovascular Cardiovascular exam: Present: regular rate, normal rhythm, normal heart sounds - Abdominal Exam Abdominal exam: Present: soft, tenderness, guarding, normal bowel sounds, scar. Absent: distention, rebound, rigidity, organomegaly, tenderness at McBurney's Point, ascites, mass, pulsatile mass - Extremities Exam Extremities exam: Present: normal inspection - Back Exam Back exam: Present: normal inspection. Absent: tenderness, CVA tenderness (R), CVA tenderness (L), vertebral tenderness - Neurological Exam Neurological exam: Present: alert, oriented X3, CN II-XII intact - Psychiatric Psychiatric exam: Present: normal affect, normal mood - Skin Skin exam: Present: warm, dry, intact, normal color Course Course Narrative: patient has RUQ abd pain and notable tenderness. No fever, vomiting or diarrhea. No melena. No trauma. Patient very uncomfortable when trying to lie supine. Will check labs, scan abdomen and treat symptoms. Case discussed with Dr. Willis. He has had face to face time with the patient and agrees with the assessment and plan. Patient has stable CKD, leukocytosis - 16, TNTC WBC and Nitrite in urine, elevated glucose. CT read by Rad as acute sigmoid diverticulitis, bladder wall thickening and air in the bladder. Patient states that she has had several UTI's recently. She is an IDDM with CKD and is obese. She lives alone and is minimally aware of the potential severity of her multiple comorbidities. Recommend admission. Plan discussed with Dr. Willis and the patient. She is in agreement. Hospitalist has been paged. Urine culture orrdered, but lab will not run the culture on the sample they have as it contains many epithelial cells. New sample will be sent to lab. Culture ordered. Blood cultures ordered. ABX and fluids ordered. Hospitalist has now accepted the patient. 15:42 Vital Signs Temperature 98.7 F 08/19/18 10:42 Pulse Rate 82 08/19/18 10:42 Respiratory Rate 17 08/19/18 10:42 Blood Pressure 118/73 08/19/18 10:42 O2 Sat by Pulse Oximetry 95 08/19/18 10:42 Temperature 98.7 F 08/19/18 10:42 Pulse Rate 67 08/19/18 14:50 Respiratory Rate 12 08/19/18 14:50 Blood Pressure 117/60 08/19/18 14:50 O2 Sat by Pulse Oximetry 94 08/19/18 14:50 Oxygen Delivery Oxygen Delivery Room Air Medical Decision Making - Medical Records Medical records reviewed: Yes I reviewed the patient's medical records. - Lab Data Lab results reviewed: Yes I reviewed the patient's lab results. Lab results narrative: Laboratory Last Values WBC 14.2 K/mcL (4.3-11.1) H 08/19/18 12:18 RBC 4.92 M/mcL (3.82-4.97) 08/19/18 12:18 Hgb 13.8 g/dL (11.5-15.4) 08/19/18 12:18 Hct 40.5 % (35.3-44.9) 08/19/18 12:18 MCV 82.3 fL (83.0-100.0) L 08/19/18 12:18 MCH 28.0 pg (28.0-33.3) 08/19/18 12:18 MCHC 34.1 g/dL (31.6-35.5) 08/19/18 12:18 RDW 14.0 % (11.5-14.5) 08/19/18 12:18 Plt Count 336 K/mcL (140-400) 08/19/18 12:18 MPV 8.9 fL (9.4-12.4) L 08/19/18 12:18 Immature Gran % 0.9 % (0-4) 08/19/18 12:18 Seg Neutrophils % 72.9 % 08/19/18 12:18 Lymphocytes % 18.7 % 08/19/18 12:18 Monocytes % 5.4 % 08/19/18 12:18 Eosinophils % 1.5 % 08/19/18 12:18 Basophils % 0.6 % 08/19/18 12:18 Neutrophils # 10.3 K/mcL (1.6-8.9) H 08/19/18 12:18 Lymphocytes # 2.7 K/mcL (0.6-4.6) 08/19/18 12:18 Monocytes # 0.8 K/mcL (0.0-1.3) 08/19/18 12:18 Eosinophils # 0.2 K/mcL (0.0-0.6) 08/19/18 12:18 Basophils # 0.1 K/mcL (0.0-0.2) 08/19/18 12:18 PT 12.9 Seconds (9.4-12.1) H 08/19/18 12:18 INR 1.1 08/19/18 12:18 APTT 32.4 Seconds (26.0-36.0) 08/19/18 12:18 Sodium 135 mEq/L (136-145) L 08/19/18 12:18 Potassium 4.0 mEq/L (3.5-5.1) 08/19/18 12:18 Chloride 104 mEq/L (98-107) 08/19/18 12:18 Carbon Dioxide 19 mEq/L (23-29) L 08/19/18 12:18 BUN 18 mg/dL (6-20) 08/19/18 12:18 Creatinine 1.46 mg/dL (0.60-1.20) H 08/19/18 12:18 Est GFR ( Amer) 45 (> 60) L 08/19/18 12:18 Est GFR (Non-Af Amer) 37 (> 60) L 08/19/18 12:18 BUN/Creatinine Ratio 12 (6-26) 08/19/18 12:18 Glucose 144 mg/dL (70-105) H 08/19/18 12:18 Calculated Osmolality 284 (280-300) 08/19/18 12:18 Calcium 8.5 mg/dL (8.6-10.3) L 08/19/18 12:18 Total Bilirubin 0.4 mg/dL (0.3-1.0) 08/19/18 12:18 Direct Bilirubin 0.0 mg/dL (0.0-0.2) 08/19/18 12:18 Indirect Bilirubin 0.4 mg/dL (0.0-1.2) 08/19/18 12:18 AST 9 Units/L (13-39) L 08/19/18 12:18 ALT 9 Units/L (7-52) 08/19/18 12:18 Alkaline Phosphatase 86 Units/L (34-104) 08/19/18 12:18 Serum Total Protein 6.8 g/dL (6.4-8.9) 08/19/18 12:18 Albumin 3.9 g/dL (3.5-5.7) 08/19/18 12:18 Globulin 2.9 g/dL (2.4-3.5) 08/19/18 12:18 Albumin/Globulin Ratio 1.3 (1.1-2.2) 08/19/18 12:18 Urine Color Yellow (Yellow) 08/19/18 12:50 Urine Clarity Turbid (Clear) A 08/19/18 12:50 Urine pH 6.5 pH Units (5.0-8.0) 08/19/18 12:50 Ur Specific Harrison < 1.005 (1.010-1.025) L 08/19/18 12:50 Urine Protein >=300 mg/dL (Neg-Trace) H 08/19/18 12:50 Urine Glucose (UA) Normal mg/dL (Normal) 08/19/18 12:50 Urine Ketones Negative mg/dL (Negative) 08/19/18 12:50 Urine Blood Small (Negative) H 08/19/18 12:50 Urine Nitrite Positive (Negative) A 08/19/18 12:50 Urine Bilirubin Negative (Negative) 08/19/18 12:50 Urine Urobilinogen Normal mg/dL (Normal) 08/19/18 12:50 Ur Leukocyte Esterase Large (Negative) H 08/19/18 12:50 Urine Microscopic RBC 5-15 per hpf (0-3) H 08/19/18 12:50 Urine Microscopic WBC TNTC per hpf (0-3) H 08/19/18 12:50 Ur Squamous Epith Cells Many per lpf (None-Few) H 08/19/18 12:50 Urine Bacteria Many per hpf (None-Few) H 08/19/18 12:50 Hyaline Casts None Seen per lpf (None-Few) 08/19/18 12:50 Ur Culture Indicated? NO. (NO) A 08/19/18 12:50 Result diagrams: 08/19/18 12:18 08/19/18 12:18 Lab Results 08/19/18 08/19/18 08/19/18 Range/Units 12:18 12:18 12:18 WBC 14.2 H (4.3-11.1) K/mcL RBC 4.92 (3.82-4.97) M/mcL Hgb 13.8 (11.5-15.4) g/dL Hct 40.5 (35.3-44.9) % MCV 82.3 L (83.0-100.0) fL MCH 28.0 (28.0-33.3) pg MCHC 34.1 (31.6-35.5) g/dL RDW 14.0 (11.5-14.5) % Plt Count 336 (140-400) K/mcL MPV 8.9 L (9.4-12.4) fL Immature Gran % 0.9 (0-4) % Seg Neutrophils % 72.9 % Lymphocytes % 18.7 % Monocytes % 5.4 % Eosinophils % 1.5 % Basophils % 0.6 % Neutrophils # 10.3 H (1.6-8.9) K/mcL Lymphocytes # 2.7 (0.6-4.6) K/mcL Monocytes # 0.8 (0.0-1.3) K/mcL Eosinophils # 0.2 (0.0-0.6) K/mcL Basophils # 0.1 (0.0-0.2) K/mcL PT 12.9 H (9.4-12.1) Seconds INR 1.1 APTT 32.4 (26.0-36.0) Seconds Sodium 135 L (136-145) mEq/L Potassium 4.0 (3.5-5.1) mEq/L Chloride 104 (98-107) mEq/L Carbon Dioxide 19 L (23-29) mEq/L BUN 18 (6-20) mg/dL Creatinine 1.46 H (0.60-1.20) mg/dL Est GFR ( Amer) 45 L (> 60) Est GFR (Non-Af Amer) 37 L (> 60) BUN/Creatinine Ratio 12 (6-26) Glucose 144 H (70-105) mg/dL Calculated Osmolality 284 (280-300) Calcium 8.5 L (8.6-10.3) mg/dL Total Bilirubin 0.4 (0.3-1.0) mg/dL Direct Bilirubin 0.0 (0.0-0.2) mg/dL Indirect Bilirubin 0.4 (0.0-1.2) mg/dL AST 9 L (13-39) Units/L ALT 9 (7-52) Units/L Alkaline Phosphatase 86 (34-104) Units/L Serum Total Protein 6.8 (6.4-8.9) g/dL Albumin 3.9 (3.5-5.7) g/dL Globulin 2.9 (2.4-3.5) g/dL Albumin/Globulin Ratio 1.3 (1.1-2.2) Urine Color (Yellow) Urine Clarity (Clear) Urine pH (5.0-8.0) pH Units Ur Specific Harrison (1.010-1.025) Urine Protein (Neg-Trace) mg/dL Urine Glucose (UA) (Normal) mg/dL Urine Ketones (Negative) mg/dL Urine Blood (Negative) Urine Nitrite (Negative) Urine Bilirubin (Negative) Urine Urobilinogen (Normal) mg/dL Ur Leukocyte Esterase (Negative) Urine Microscopic RBC (0-3) per hpf Urine Microscopic WBC (0-3) per hpf Ur Squamous Epith Cells (None-Few) per lpf Urine Bacteria (None-Few) per hpf Hyaline Casts (None-Few) per lpf Ur Culture Indicated? (NO) 08/19/18 Range/Units 12:50 WBC (4.3-11.1) K/mcL RBC (3.82-4.97) M/mcL Hgb (11.5-15.4) g/dL Hct (35.3-44.9) % MCV (83.0-100.0) fL MCH (28.0-33.3) pg MCHC (31.6-35.5) g/dL RDW (11.5-14.5) % Plt Count (140-400) K/mcL MPV (9.4-12.4) fL Immature Gran % (0-4) % Seg Neutrophils % % Lymphocytes % % Monocytes % % Eosinophils % % Basophils % % Neutrophils # (1.6-8.9) K/mcL Lymphocytes # (0.6-4.6) K/mcL Monocytes # (0.0-1.3) K/mcL Eosinophils # (0.0-0.6) K/mcL Basophils # (0.0-0.2) K/mcL PT (9.4-12.1) Seconds INR APTT (26.0-36.0) Seconds Sodium (136-145) mEq/L Potassium (3.5-5.1) mEq/L Chloride (98-107) mEq/L Carbon Dioxide (23-29) mEq/L BUN (6-20) mg/dL Creatinine (0.60-1.20) mg/dL Est GFR ( Amer) (> 60) Est GFR (Non-Af Amer) (> 60) BUN/Creatinine Ratio (6-26) Glucose (70-105) mg/dL Calculated Osmolality (280-300) Calcium (8.6-10.3) mg/dL Total Bilirubin (0.3-1.0) mg/dL Direct Bilirubin (0.0-0.2) mg/dL Indirect Bilirubin (0.0-1.2) mg/dL AST (13-39) Units/L ALT (7-52) Units/L Alkaline Phosphatase (34-104) Units/L Serum Total Protein (6.4-8.9) g/dL Albumin (3.5-5.7) g/dL Globulin (2.4-3.5) g/dL Albumin/Globulin Ratio (1.1-2.2) Urine Color Yellow (Yellow) Urine Clarity Turbid A (Clear) Urine pH 6.5 (5.0-8.0) pH Units Ur Specific Harrison < 1.005 L (1.010-1.025) Urine Protein >=300 H (Neg-Trace) mg/dL Urine Glucose (UA) Normal (Normal) mg/dL Urine Ketones Negative (Negative) mg/dL Urine Blood Small H (Negative) Urine Nitrite Positive A (Negative) Urine Bilirubin Negative (Negative) Urine Urobilinogen Normal (Normal) mg/dL Ur Leukocyte Esterase Large H (Negative) Urine Microscopic RBC 5-15 H (0-3) per hpf Urine Microscopic WBC TNTC H (0-3) per hpf Ur Squamous Epith Cells Many H (None-Few) per lpf Urine Bacteria Many H (None-Few) per hpf Hyaline Casts None Seen (None-Few) per lpf Ur Culture Indicated? NO. A (NO) - Radiology Data Radiology results reviewed: Yes I reviewed the patient's radiology results. Abdomen/Pelvis CT 08/19/18 11:57 IMPRESSION: 1. Findings consistent with acute sigmoid diverticulitis. Follow-up to resolution with colonoscopy is recommended to exclude an underlying mass. 2. Air within the bladder which may be related to recent instrumentation, clinical correlation is recommended. However, infection or fistulous connection to bowel cannot be excluded. Mild bladder wall thickening is also noted and may be related to cystitis. D/ / 08/19/2018 13:22:08 Rosa Ayala MD / Liz Alfaro Interpreting Provider: Rosa Ayala MD
[2018-08-19 12:34] LABS: Basophils # 0.1 K/mcL (0.0-0.2); Basophils % 0.6 %; Eosinophils # 0.2 K/mcL (0.0-0.6); Eosinophils % 1.5 %; Hematocrit 40.5 % (35.3-44.9); Hemoglobin 13.8 g/dL (11.5-15.4); Immature Granulocytes % 0.9 % (0-4); Lymphocytes # 2.7 K/mcL (0.6-4.6); Lymphocytes % 18.7 %; Mean Corpuscular HGB Conc 34.1 g/dL (31.6-35.5); Mean Corpuscular Volume 82.3 fL (83.0-100.0); Mean Platelet Volume 8.9 fL (9.4-12.4); Monocytes # 0.8 K/mcL (0.0-1.3); Monocytes % 5.4 %; Neutrophils # 10.3 K/mcL (1.6-8.9); Platelet Count 336 K/mcL (140-400); Red Blood Count 4.92 M/mcL (3.82-4.97); Segmented Neutrophils % 72.9 %
[2018-08-19 12:41] LABS: INR 1.1; Prothrombin Time 12.9 Seconds (9.4-12.1)
[2018-08-19 12:44] LABS: Activated Partial Thrombo Time 32.4 Seconds (26.0-36.0)
[2018-08-19 12:54] LABS: Albumin 3.9 g/dL (3.5-5.7); Albumin/Globulin Ratio 1.3 (1.1-2.2); Bilirubin,Indirect 0.4 mg/dL (0.0-1.2); Bilirubin,Total 0.4 mg/dL (0.3-1.0); Calcium 8.5 mg/dL (8.6-10.3); Globulin 2.9 g/dL (2.4-3.5); Total Protein 6.8 g/dL (6.4-8.9)
[2018-08-19 13:04] LABS: Bilirubin,Urine Negative (Negative); Blood,Urine Small (Negative); Clarity,Urine Turbid (Clear); Color,Urine Yellow (Yellow); Glucose,Urine (UA) Normal (Normal); Ketones,Urine Negative (Negative); Leukocyte Esterase,Urine Large (Negative); Nitrite,Urine Positive (Negative); PH,Urine 6.5 pH Units (5.0-8.0); Protein,Urine >=300 mg/dL (Neg-Trace); Specific Gravity,Urine < 1.005 (1.010-1.025); Urobilinogen,Urine Normal (Normal)
[2018-08-19 13:06] LABS: Bacteria,Urine Many per hpf (None-Few); Hyaline Casts,Urine None Seen per lpf (None-Few); Squamous Epithelial Cell,Urine Many per lpf (None-Few); WBC,Urine TNTC per hpf (0-3)
--- NOTE | 2018-08-19 13:06 | Emergency Department Note ---
Disposition Clinical Impression: Abdominal pain Qualifiers: Abdominal location: right upper quadrant Qualified Code(s): R10.11 - Right upper quadrant pain Disposition: Still a Patient Referrals: Kavitha Yu DO [Primary Care Provider] - Forms: ED Satisfaction Letter General Adult HPI - General Chief complaint: ED Back Pain/Injury Stated complaint: Pulled muscle/seen at yesterday Time Seen by Provider: 08/19/18 11:12 Source: patient Limitations: no limitations Nursing Notes Reviewed: Yes Vital Signs Reviewed: Yes - History of Present Illness HPI Narrative: Attestation note: Patient was seen with the emergency medicine resident/nurse practitioner/physician account management assistant/transitional resident/medical student: Shayla Parr I have personally performed a face to face evaluation on this patient. I have reviewed and agree with history and physical examination patient management and disposition. Briefly the salient points of the case are as follows: 58-year-old female right upper quadrant pain history of cholecystectomy in the past some voluntary guarding but no rebound slightly count of 14,000 patient that she pulled a mu scle appear to be focalized localized to the myofascial area. Patient getting labs abdominal pelvic CT. Abdomen is nonsurgical disposition pending. Pain Scale: 5 - Related Data Home Medications Medication Instructions Recorded Confirmed Carvedilol [Coreg] 12.5 mg PO BID 10/31/15 03/26/18 Cholecalciferol (Vitamin D3) 50,000 unit PO TUSA 10/31/15 03/26/18 [Vitamin D3] FLUoxetine HCl [Prozac] 40 mg PO DAILY 10/31/15 03/26/18 Furosemide [Lasix] 10 mg PO DAILY 10/31/15 03/26/18 Omeprazole 20 mg PO DAILY 10/31/15 03/26/18 Triamterene/HCTZ 37.5/25mg 1 tab PO DAILY #0 10/31/15 03/26/18 [Dyazide] Albuterol Sulfate [Proair Hfa] 2 puff IH Q4H PRN 06/06/16 03/26/18 Aspirin 81 mg PO DAILY 06/06/16 03/26/18 lamoTRIgine [Lamictal] 200 mg PO DAILY 09/20/16 03/26/18 clonazePAM [Klonopin] 0.5 mg PO BID PRN 11/01/17 03/26/18 metFORMIN [Glucophage] 1,000 mg PO BID 11/01/17 03/26/18 Insulin Glargine,Hum.rec.anlog 37 unit SQ BID 03/26/18 03/26/18 [Basaglar Kwikpen U-100] Insulin LISPRO [Admelog] 18 unit SQ TIDWM 03/26/18 03/26/18 Lovastatin 40 mg PO HS 03/26/18 03/26/18 Gabapentin Enacarbil 07/23/18 Loperamide HCl 07/23/18 Losartan Potassium 07/23/18 Previous Rx's Medication Instructions Recorded Clotrimazole/Betameth Dip CRM 1 appl TP BID #1 tube 07/23/18 [Lotrisone CRM] GuaiFENesin/Dextromethorphan 10 ml PO QID PRN #240 ml 07/30/18 [Tussin Dm Syrup] Acetaminophen [Tylenol] 1,000 mg PO Q4-6H PRN #20 tablet 08/06/18 Cyclobenzaprine [Flexeril] 10 mg PO HS #10 tablet 08/06/18 Allergies Allergy/AdvReac Type Severity Reaction Status Date / Time Penicillins Allergy Hives Verified 08/06/18 12:24 Past Medical History - Past Medical History Medical history: Reports: diabetes, other Surgical history: Reports: , cholecystectomy, hysterectomy Psychiatric history: Reports: anxiety, depression [employer]GRAM[employer]IL[employer] 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 - Social History Smoking Status: Current every day smoker Smokeless Tobacco Status: No Alcohol use: Reports: none Drug use: Reports: none Physical Exam - General Limitations: no limitations General appearance: alert, in no apparent distress Course Vital Signs Temperature 98.7 F 08/19/18 10:42 Pulse Rate 82 08/19/18 10:42 Respiratory Rate 17 08/19/18 10:42 Blood Pressure 118/73 08/19/18 10:42 O2 Sat by Pulse Oximetry 95 08/19/18 10:42 Temperature 98.7 F 08/19/18 10:42 Pulse Rate 82 08/19/18 10:42 Respiratory Rate 17 08/19/18 10:42 Blood Pressure 118/73 08/19/18 10:42 O2 Sat by Pulse Oximetry 95 08/19/18 10:42 Oxygen Delivery Oxygen Delivery Room Air Medical Decision Making - Lab Data Result diagrams: 08/19/18 12:18 08/19/18 12:18 Lab Results 08/19/18 08/19/18 08/19/18 Range/Units 12:18 12:18 12:18 WBC 14.2 H (4.3-11.1) K/mcL RBC 4.92 (3.82-4.97) M/mcL Hgb 13.8 (11.5-15.4) g/dL Hct 40.5 (35.3-44.9) % MCV 82.3 L (83.0-100.0) fL MCH 28.0 (28.0-33.3) pg MCHC 34.1 (31.6-35.5) g/dL RDW 14.0 (11.5-14.5) % Plt Count 336 (140-400) K/mcL MPV 8.9 L (9.4-12.4) fL Immature Gran % 0.9 (0-4) % Seg Neutrophils % 72.9 % Lymphocytes % 18.7 % Monocytes % 5.4 % Eosinophils % 1.5 % Basophils % 0.6 % Neutrophils # 10.3 H (1.6-8.9) K/mcL Lymphocytes # 2.7 (0.6-4.6) K/mcL Monocytes # 0.8 (0.0-1.3) K/mcL Eosinophils # 0.2 (0.0-0.6) K/mcL Basophils # 0.1 (0.0-0.2) K/mcL PT 12.9 H (9.4-12.1) Seconds INR 1.1 APTT 32.4 (26.0-36.0) Seconds Sodium 135 L (136-145) mEq/L Potassium 4.0 (3.5-5.1) mEq/L Chloride 104 (98-107) mEq/L Carbon Dioxide 19 L (23-29) mEq/L BUN 18 (6-20) mg/dL Creatinine 1.46 H (0.60-1.20) mg/dL Est GFR ( Amer) 45 L (> 60) Est GFR (Non-Af Amer) 37 L (> 60) BUN/Creatinine Ratio 12 (6-26) Glucose 144 H (70-105) mg/dL Calculated Osmolality 284 (280-300) Calcium 8.5 L (8.6-10.3) mg/dL Total Bilirubin 0.4 (0.3-1.0) mg/dL Direct Bilirubin 0.0 (0.0-0.2) mg/dL Indirect Bilirubin 0.4 (0.0-1.2) mg/dL AST 9 L (13-39) Units/L ALT 9 (7-52) Units/L Alkaline Phosphatase 86 (34-104) Units/L Serum Total Protein 6.8 (6.4-8.9) g/dL Albumin 3.9 (3.5-5.7) g/dL Globulin 2.9 (2.4-3.5) g/dL Albumin/Globulin Ratio 1.3 (1.1-2.2)
[2018-08-19] MEDS ORDERED: MetroNIDAZOLE 500 MG/100 ML 500 MG/100 ML BAG IVPB ONE (14:12)
[2018-08-19] MEDS ORDERED: Nicotine 21 MG PATCH.TD24 TD ONE (14:27)
[2018-08-19] MEDS ORDERED: 0.9 % Sodium Chloride 1,000 ML IVC ONE (14:28)
[2018-08-19] MEDS ORDERED: *HR* Nalbuphine 10 MG/ML AMPUL IVP ONE (14:28)
[2018-08-19] MEDS ORDERED: Ondansetron 4 MG/2 ML VIAL IVP ONE (14:28)
--- NOTE | 2018-08-19 17:51 | Internal Med History&Physical ---
Date of Encounter: 08/19/18 Time of Encounter: 16:49 Internal Medicine - H&P: HPI Chief complaint: Rt sided abdominal pain. Admitted From: Home Plans for Post Hospital Care: Home History of present illness: Ms. Brothers is a 58 year old female past medical history of diabetes, coronary artery disease, hypertension, hyperlipidemia, CKD who was seen at urgent care center for right-sided abdominal pain and discharged with diagnosis of muscle spasm came in again today with similar symptoms as he did not resolve. She den ied any fevers chills nausea vomiting. She denies any burning urination. She denies any bowel complaints except occasional diarrhea. She has a history of multiple UTIs in past year. She denied any difficulty breathing or chest pain or back pain. Denies any previous history of kidney stones. Patient was evaluated in ER with lab work and CT abdomen. Labs showed mild leukocytosis, stable CKD. Abdominal/pelvis CT showed findings consistent with sigmoid diverticulitis as well as air within the bladder and mild bladder wall thickening. Patient denied any left-sided abdominal pain. Patient received 1 dose of ciprofloxacin and metronidazole in ER. On my interview patient feeling well denied any abdominal pain, fevers chills nausea or vomiting. Past Med Surg Social Fam HX - Past Medical History Attestation: Yes The following information was validated with the patient. Medical history: diabetes, hyperlipidemia, hypertension, renal disease, other Additional medical history: Stage III kidney disease. Psychiatric history: anxiety, depression - Past Surgical History Surgical History: , cholecystectomy, hysterectomy - Social History Smoking Status: Current every day smoker Packs per day: 0.5 Smokeless Tobacco Status: No Alcohol use: none Drug use: none - Family History Mother Living Status: Still Living Father Living Status: Age at : 74 Cause of : heart attack Hx Family Cardiac Disorders: Yes Hx Family Respiratory Disorders: No Hx Family Cancer: No Hx Family GI Disorders: No Hx Family Endocrine Disorder: Yes Hx Family Neuromuscular Disorders: No Hx Family Neurologic Disorders: No Hx Family HEENT Disorders: No Hx Family Autoimmune Disorders: No Hx Family Medical Disorders: Yes Internal Medicine - H&P: Meds Carvedilol [Coreg] 12.5 mg PO BID 10/31/15 [History] Cholecalciferol (Vitamin D3) [Vitamin D3] 50,000 unit PO TUSA 10/31/15 [History] FLUoxetine HCl [Prozac] 40 mg PO DAILY 10/31/15 [History] Furosemide [Lasix] 10 mg PO DAILY 10/31/15 [History] Omeprazole 20 mg PO DAILY 10/31/15 [History] Triamterene/HCTZ 37.5/25mg [Dyazide] 1 tab PO DAILY #0 10/31/15 [History] Albuterol Sulfate [Proair Hfa] 2 puff IH Q4H PRN 06/06/16 [History] Aspirin 81 mg PO DAILY 06/06/16 [History] lamoTRIgine [Lamictal] 200 mg PO DAILY 09/20/16 [History] clonazePAM [Klonopin] 0.5 mg PO BID PRN 11/01/17 [History] metFORMIN [Glucophage] 1,000 mg PO BID 11/01/17 [History] Insulin Glargine,Hum.rec.anlog [Basaglar Kwikpen U-100] 35 unit SQ BID 03/26/18 [History] Insulin LISPRO [Admelog] 18 unit SQ TIDWM 03/26/18 [History] Lovastatin 40 mg PO HS 03/26/18 [History] Gabapentin Enacarbil 600 mg PO BID 07/23/18 [History] Acetaminophen [Tylenol] 1,000 mg PO Q4-6H PRN #20 tablet 08/06/18 [Rx] Cyclobenzaprine [Flexeril] 10 mg PO HS #10 tablet 08/06/18 [Rx] Clotrimazole/Betameth Dip CRM [Lotrisone CRM] 1 appl TP BID PRN 08/19/18 [History] Allergy/AdvReac Type Severity Reaction Status Date / Time Penicillins Allergy Rash Verified 08/19/18 17:59 All Systems PM: A 10-system review of systems was performed and is negative for pertinent findings except as documented above in the HPI. - Constitutional Vitals: Temp Pulse Resp BP Pulse Ox 98.3 F 66 16 129/77 93 08/19/18 17:38 08/19/18 17:38 08/19/18 17:38 08/19/18 17:38 08/19/18 17:38 General appearance: Present: A&O X 2 Exam: Constitutional: Vitals as noted. Conversant. No Apparent Distress. Obese Eyes : Sclera white, conjunctiva clear, no lid lag, PEARLA. ENT : Grossly normal hearing. Oropharyngeal exam unremarkable. Moist mucus membranes. No JVD, no cervical lymphadenopathy. no thyromegaly or mass. Respiratory : Clear to auscultation bilaterally. No accessory muscle use, rales, rhonchi or wheezes Cardiovascular : RRR, +S1, +S2. no murmur, gallop, rubs. No chest wall tenderness GI/Abdominal : Soft, Non-tender, Non-distended, normal bowel sounds, soft, no peritoneal signs. no orgenomegaly or mass appreciated. no hernia. Musculoskeletal: no deformity noted. no edema. warm extremities, pulses palpable and symmetrical in UE/LE. no calf tenderness. Neurological: AO X3, CN II-XII grossly intact, grossly normal motor and sensory exam. Skin: skin erosion 1x2 cm noted on abdomen with old scar noted on abdomen and legs. Internal Med - H&P Results - Labs CBC & Chem 7: 08/19/18 12:18 08/19/18 12:18 Labs: Short CBC 08/19/18 Range/Units 12:18 WBC 14.2 H (4.3-11.1) K/mcL Hgb 13.8 (11.5-15.4) g/dL Hct 40.5 (35.3-44.9) % Plt Count 336 (140-400) K/mcL Neutrophils # 10.3 H (1.6-8.9) K/mcL BMP 08/19/18 12:18 Sodium 135 L Potassium 4.0 Chloride 104 Carbon Dioxide 19 L BUN 18 Creatinine 1.46 H Glucose 144 H Calcium 8.5 L Liver Function 08/19/18 Range/Units 12:18 Total Bilirubin 0.4 (0.3-1.0) mg/dL Direct Bilirubin 0.0 (0.0-0.2) mg/dL AST 9 L (13-39) Units/L ALT 9 (7-52) Units/L Alkaline Phosphatase 86 (34-104) Units/L Albumin 3.9 (3.5-5.7) g/dL Urine 08/19/18 Range/Units 12:50 Urine Color Yellow (Yellow) Urine Clarity Turbid A (Clear) Urine pH 6.5 (5.0-8.0) pH Units Ur Specific [place] < 1.005 L (1.010-1.025) Urine Protein >=300 H (Neg-Trace) mg/dL Urine Glucose (UA) Normal (Normal) mg/dL - Impressions ITS Impressions Abdomen/Pelvis CT 08/19/18 11:57 IMPRESSION: 1. Findings consistent with acute sigmoid diverticulitis. Follow-up to resolution with colonoscopy is recommended to exclude an underlying mass. 2. Air within the bladder which may be related to recent instrumentation, clinical correlation is recommended. However, infection or fistulous connection to bowel cannot be excluded. Mild bladder wall thickening is also noted and may be related to cystitis. D/ / 08/19/2018 13:22:08 Rosa Ayala MD / Liz Alfaro Interpreting Provider: Rosa Ayala MD - Assessment and plan (1) Sigmoid diverticulitis Current Visit: Yes Status: Acute Assessment and plan: - Patient with CT finding of sigmoid diverticulitis. However patient without any symptoms of left lower quadrant pain. Only occasional diarrhea. - Patient received Cipro and metronidazole - We will finish 3 day course of antibiotics. (2) Abnormal urinalysis Current Visit: Yes Status: Acute Assessment and plan: - Patient without any urinary complaints, suprapubic pain, back pain, fever or chills. - Found to have abnormal UA and CT finding of air in bladder and mild thickening of the bladder wall. Mild leukocytosis with white count of 14. - Urology consulted given associated sigmoid diverticulitis. case discussed. Possibly related to bacterial colonization of bladder. - Continue antibiotics as above. Urine cultures collected from ER. (3) HLD (hyperlipidemia) Current Visit: Yes Status: Acute Assessment and plan: - Continue home medication when confirmed Qualifiers: Hyperlipidemia type: unspecified Qualified Code(s): E78.5 - Hyperlipidemia, unspecified (4) Chronic kidney disease, stage 3 Current Visit: No Status: Chronic Assessment and plan: - Appears to be stable - Monitor for now (5) Diabetes Current Visit: No Status: Chronic Assessment and plan: - We will keep patient on insulin sliding scale and Accu-Cheks Qualifiers: Diabetes mellitus type: type 2 Diabetes mellitus group home insulin use: with group home use Diabetes mellitus complication status: with neurologic complications Diabetes mellitus complication detail: with polyneuropathy Qualified Code(s): E11.42 - Type 2 diabetes mellitus with diabetic polyneuropathy; 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
[2018-08-20 04:06] LABS: Basophils # 0.1 K/mcL (0.0-0.2); Basophils % 0.8 %; Eosinophils # 0.3 K/mcL (0.0-0.6); Eosinophils % 3.5 %; Immature Granulocytes % 0.7 % (0-4); Lymphocytes % 33.6 %; Mean Corpuscular HGB Conc 33.7 g/dL (31.6-35.5); Mean Corpuscular Hemoglobin 28.5 pg (28.0-33.3); Mean Corpuscular Volume 84.5 fL (83.0-100.0); Mean Platelet Volume 9.1 fL (9.4-12.4); Monocytes # 0.7 K/mcL (0.0-1.3); Monocytes % 7.9 %; Neutrophils # 4.7 K/mcL (1.6-8.9); Platelet Count 249 K/mcL (140-400); Red Blood Count 4.14 M/mcL (3.82-4.97); Red Cell Distribution Width 14.2 % (11.5-14.5); Segmented Neutrophils % 53.5 %
[2018-08-20 04:15] LABS: Calcium 7.7 mg/dL (8.6-10.3); Potassium 3.6 mEq/L (3.5-5.1)
[2018-08-20 04:31] LABS: Hemoglobin 11.8 g/dL (11.5-15.4)
--- NOTE | 2018-08-20 08:21 | Urology - Consult Note ---
<Fauzia Tena N - Last Filed: 08/20/18 08:17> Date of Encounter: 08/20/18 Time of Encounter: 08:18 - Assessment and Plan (1) Emphysematous cystitis Current Visit: Yes Status: Acute Assessment and plan: Patient is a 58-year-old female who presents the history of emphysematous cystitis. Vital signs are currently stable and afebrile. White blood cell count is reassuring. Urinalysis is grossly positive, and urine culture is pending. Patient has received 1 dose of Cipro. Discussed the likelihood of bacterial colonization within the urinary bladder, although, patient is symptomatic with current urinary tract infection. CT report suggests the possibility of colovesicular fistula versus gas-forming organism within the bladder. Reviewed CT images with Dr. Feng who feels the likelihood of emphysematous cystitis is most likely. I recommend treating patient with IV antibiotics until urine culture is obtained, and then she may be transitioned to oral antibiotics for continued outpatient therapy. There is no urologic surgical intervention anticipated at this time. (2) UTI (urinary tract infection) Current Visit: Yes Status: Acute Qualifiers: Urinary tract infection type: acute cystitis Hematuria presence: with hematuria Qualified Code(s): N30.01 - Acute cystitis with hematuria Urology CN:HPI Consult date: 08/20/18 Reason for consult Urology: Other (emphysematous cystitis) History of present illness: Patient is a 58-year-old female who presents with emphysematous cystitis. Patient has a long-standing history of recurrent urinary tract infection as well as bladder colonization. Patient presented to the emergency department with complaints of right lower quadrant pain and dysuria. Patient states she has experienced burning with urination and suprapubic pain for the last week or so. Patient denies any fever, chills, gross hematuria, urgency, frequency, incontinence. Patient underwent a CT of the abdomen and pelvis that was suggestive of sigmoid diverticulitis and revealed air within the bladder. Patient has been given Cipro and Flagyl in the emergency department and states dysuria is mildly improved. Patient denies any change in bowel habits including diarrhea, constipation, hematochezia. Past Med Surg Social Fam HX - Past Medical History Medical history: diabetes, hyperlipidemia, hypertension, renal disease, other Additional medical history: Stage III kidney disease. Psychiatric history: anxiety, depression - Past Surgical History Surgical History: , cholecystectomy, hysterectomy Additional surgical history: botox for bladder - Social History Smoking Status: Current every day smoker Packs per day: 0.5 Smokeless Tobacco Status: No Alcohol use: none Drug use: none - Family History Mother Living Status: Still Living Hx Family Cardiac Disorders: Yes (heart failure) Father Living Status: Age at : 74 Cause of : heart attack Hx Family Cardiac Disorders: Yes Hx Family Respiratory Disorders: No Hx Family Cancer: No Hx Family GI Disorders: No Hx Family Endocrine Disorder: Yes Hx Family Neuromuscular Disorders: No Hx Family Neurologic Disorders: No Hx Family HEENT Disorders: No Hx Family Autoimmune Disorders: No Hx Family Medical Disorders: Yes Medications and Allergies Carvedilol [Coreg] 12.5 mg PO BID 10/31/15 [History] Cholecalciferol (Vitamin D3) [Vitamin D3] 50,000 unit PO TUSA 10/31/15 [History] FLUoxetine HCl [Prozac] 20 mg PO DAILY 10/31/15 [History] Furosemide [Lasix] 10 mg PO DAILY 10/31/15 [History] Omeprazole 20 mg PO DAILY 10/31/15 [History] Triamterene/HCTZ 37.5/25mg [Dyazide] 1 tab PO DAILY #0 10/31/15 [History] Albuterol Sulfate [Proair Hfa] 2 puff IH Q4H PRN 06/06/16 [History] Aspirin 81 mg PO DAILY 06/06/16 [History] lamoTRIgine [Lamictal] 200 mg PO DAILY 09/20/16 [History] clonazePAM [Klonopin] 0.5 mg PO BID PRN 11/01/17 [History] metFORMIN [Glucophage] 1,000 mg PO BID 11/01/17 [History] Insulin Glargine,Hum.rec.anlog [Basaglar Kwikpen U-100] 35 unit SQ BID 03/26/18 [History] Insulin LISPRO [Admelog] 18 unit SQ TIDWM 03/26/18 [History] Lovastatin 40 mg PO DAILY 03/26/18 [History] Gabapentin 600 mg PO BID 07/23/18 [History] Acetaminophen [Tylenol] 1,000 mg PO Q4-6H PRN #20 tablet 08/06/18 [Rx] Gabapentin [Neurontin] 100 mg PO QAM 08/20/18 [History] Ondansetron HCl [Zofran] 8 mg PO DAILY PRN 08/20/18 [History] traZODone [TraZODone] 50 mg PO HS 08/20/18 [History] Allergy/AdvReac Type Severity Reaction Status Date / Time Penicillins Allergy Hives Verified 08/20/18 15:48 Review of Systems - Constitutional no chills, no fatigue, no fever(s) - EENT Nose, mouth and throat: no dizziness, no headache(s) - Cardiovascular no chest pain, no diaphoresis, no dyspnea - Respiratory no cough, no dyspnea - Gastrointestinal abdominal pain, no change in bowel habits, no nausea, no vomiting - Genitourinary Genitourinary: dysuria, no difficulty urinating, no flank pain, no hematuria, no urinary frequency, no urinary hesitancy, no urinary incontinence, no urinary urgency - Musculoskeletal no back pain, no numbness - Integumentary no erythema, no rash, no swelling - Neurological no confusion, no syncope - Psychiatric no anxiety, no confusion - Hematologic/Lymphatic no easy bleeding, no easy bruising - Allergic/Immunologic no throat swelling, no wheezing Exam Initial Vital Signs Temp Pulse Resp BP Pulse Ox 98.7 F 82 17 118/73 95 08/19/18 10:42 08/19/18 10:42 08/19/18 10:42 08/19/18 10:42 08/19/18 10:42 - General physical appearance Present: well developed, no distress, no pain - Eyes Present: PERRL, normal ocular movement - ENT Present: normal nares, no hearing loss, no congestion - Neck Present: no masses, trachea midline - Respiratory Present: normal respiratory effort - Abdomen Abdomen: Present: soft, non tender - Integumentary Present: no rash, no abnormal pigmentation - Neurologic Present: normal coordination Urology Results - Labs 08/20/18 02:50 08/20/18 02:50 Abnormal lab results Hct 35.0 % (35.3-44.9) L 08/20/18 02:50 MPV 9.1 fL (9.4-12.4) L 08/20/18 02:50 PT 12.9 Seconds (9.4-12.1) H 08/19/18 12:18 Carbon Dioxide 21 mEq/L (23-29) L 08/20/18 02:50 BUN 21 mg/dL (6-20) H 08/20/18 02:50 Creatinine 1.64 mg/dL (0.60-1.20) H 08/20/18 02:50 Est GFR ( Amer) 39 (> 60) L 08/20/18 02:50 Est GFR (Non-Af Amer) 32 (> 60) L 08/20/18 02:50 Glucose 140 mg/dL (70-105) H 08/20/18 02:50 POC Glucose 155 mg/dL (70-99) H 08/20/18 08:07 Calcium 7.7 mg/dL (8.6-10.3) L 08/20/18 02:50 AST 9 Units/L (13-39) L 08/19/18 12:18 Urine Clarity Turbid (Clear) A 08/19/18 12:50 Ur Specific [place] < 1.005 (1.010-1.025) L 08/19/18 12:50 Urine Protein >=300 mg/dL (Neg-Trace) H 08/19/18 12:50 Urine Blood Small (Negative) H 08/19/18 12:50 Urine Nitrite Positive (Negative) A 08/19/18 12:50 Ur Leukocyte Esterase Large (Negative) H 08/19/18 12:50 Urine Microscopic RBC 5-15 per hpf (0-3) H 08/19/18 12:50 Urine Microscopic WBC TNTC per hpf (0-3) H 08/19/18 12:50 Ur Squamous Epith Cells Many per lpf (None-Few) H 08/19/18 12:50 Urine Bacteria Many per hpf (None-Few) H 08/19/18 12:50 Ur Culture Indicated? NO. (NO) A 08/19/18 12:50 Diabetes panel 08/19/18 08/20/18 Range/Units 12:18 02:50 Sodium 135 L 138 (136-145) mEq/L Potassium 4.0 3.6 (3.5-5.1) mEq/L Chloride 104 107 (98-107) mEq/L Carbon Dioxide 19 L 21 L (23-29) mEq/L BUN 18 21 H (6-20) mg/dL Creatinine 1.46 H 1.64 H (0.60-1.20) mg/dL Glucose 144 H 140 H (70-105) mg/dL Calcium 8.5 L 7.7 L (8.6-10.3) mg/dL AST 9 L (13-39) Units/L ALT 9 (7-52) Units/L Alkaline Phosphatase 86 (34-104) Units/L Albumin 3.9 (3.5-5.7) g/dL Calcium panel 08/19/18 08/20/18 Range/Units 12:18 02:50 Calcium 8.5 L 7.7 L (8.6-10.3) mg/dL Albumin 3.9 (3.5-5.7) g/dL Pituitary panel 08/19/18 08/20/18 Range/Units 12:18 02:50 Sodium 135 L 138 (136-145) mEq/L Potassium 4.0 3.6 (3.5-5.1) mEq/L Chloride 104 107 (98-107) mEq/L Carbon Dioxide 19 L 21 L (23-29) mEq/L BUN 18 21 H (6-20) mg/dL Creatinine 1.46 H 1.64 H (0.60-1.20) mg/dL Glucose 144 H 140 H (70-105) mg/dL Calcium 8.5 L 7.7 L (8.6-10.3) mg/dL Adrenal panel 08/19/18 08/20/18 Range/Units 12:18 02:50 Sodium 135 L 138 (136-145) mEq/L Potassium 4.0 3.6 (3.5-5.1) mEq/L Chloride 104 107 (98-107) mEq/L Carbon Dioxide 19 L 21 L (23-29) mEq/L BUN 18 21 H (6-20) mg/dL Creatinine 1.46 H 1.64 H (0.60-1.20) mg/dL Glucose 144 H 140 H (70-105) mg/dL Calcium 8.5 L 7.7 L (8.6-10.3) mg/dL Total Bilirubin 0.4 (0.3-1.0) mg/dL AST 9 L (13-39) Units/L ALT 9 (7-52) Units/L Alkaline Phosphatase 86 (34-104) Units/L Albumin 3.9 (3.5-5.7) g/dL All other labs normal. 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 I personally reviewed the patient's CT scan and believe that the air seen is likely from chronic urinary colonization. Patient states she only occasionally has symptoms of a UTI. In addition, she has been instrumented in the last year as she undergoes intravesical Botox which is helped with her incontinence. Despite the diagnosis of diverticulitis I think the likelihood of a fistula is low and does not require further evaluation at this time. Patient states she feels "much better" . okay to discharge from urology standpoint. Patient does not require antibiotics specific for her urine culture as she likely has colonization (2) Emphysematous cystitis Current Visit: Yes Status: Acute Assessment and plan: see additional assessment/plan. Exam Initial Vital Signs Temp Pulse Resp BP Pulse Ox 98.7 F 82 17 118/73 95 08/19/18 10:42 08/19/18 10:42 08/19/18 10:42 08/19/18 10:42 08/19/18 10:42 Urology Results - Labs 08/20/18 02:50 08/20/18 02:50 Abnormal lab results Hct 35.0 % (35.3-44.9) L 08/20/18 02:50 MPV 9.1 fL (9.4-12.4) L 08/20/18 02:50 PT 12.9 Seconds (9.4-12.1) H 08/19/18 12:18 Carbon Dioxide 21 mEq/L (23-29) L 08/20/18 02:50 BUN 21 mg/dL (6-20) H 08/20/18 02:50 Creatinine 1.64 mg/dL (0.60-1.20) H 08/20/18 02:50 Est GFR ( Amer) 39 (> 60) L 08/20/18 02:50 Est GFR (Non-Af Amer) 32 (> 60) L 08/20/18 02:50 Glucose 140 mg/dL (70-105) H 08/20/18 02:50 POC Glucose 145 mg/dL (70-99) H 08/20/18 16:54 Calcium 7.7 mg/dL (8.6-10.3) L 08/20/18 02:50 AST 9 Units/L (13-39) L 08/19/18 12:18 Urine Clarity Turbid (Clear) A 08/19/18 12:50 Ur Specific [place] < 1.005 (1.010-1.025) L 08/19/18 12:50 Urine Protein >=300 mg/dL (Neg-Trace) H 08/19/18 12:50 Urine Blood Small (Negative) H 08/19/18 12:50 Urine Nitrite Positive (Negative) A 08/19/18 12:50 Ur Leukocyte Esterase Large (Negative) H 08/19/18 12:50 Urine Microscopic RBC 5-15 per hpf (0-3) H 08/19/18 12:50 Urine Microscopic WBC TNTC per hpf (0-3) H 08/19/18 12:50 Ur Squamous Epith Cells Many per lpf (None-Few) H 08/19/18 12:50 Urine Bacteria Many per hpf (None-Few) H 08/19/18 12:50 Ur Culture Indicated? NO. (NO) A 08/19/18 12:50 Diabetes panel 08/20/18 Range/Units 02:50 Sodium 138 (136-145) mEq/L Potassium 3.6 (3.5-5.1) mEq/L Chloride 107 (98-107) mEq/L Carbon Dioxide 21 L (23-29) mEq/L BUN 21 H (6-20) mg/dL Creatinine 1.64 H (0.60-1.20) mg/dL Glucose 140 H (70-105) mg/dL Calcium 7.7 L (8.6-10.3) mg/dL Calcium panel 08/20/18 Range/Units 02:50 Calcium 7.7 L (8.6-10.3) mg/dL Pituitary panel 08/20/18 Range/Units 02:50 Sodium 138 (136-145) mEq/L Potassium 3.6 (3.5-5.1) mEq/L Chloride 107 (98-107) mEq/L Carbon Dioxide 21 L (23-29) mEq/L BUN 21 H (6-20) mg/dL Creatinine 1.64 H (0.60-1.20) mg/dL Glucose 140 H (70-105) mg/dL Calcium 7.7 L (8.6-10.3) mg/dL Adrenal panel 08/20/18 Range/Units 02:50 Sodium 138 (136-145) mEq/L Potassium 3.6 (3.5-5.1) mEq/L Chloride 107 (98-107) mEq/L Carbon Dioxide 21 L (23-29) mEq/L BUN 21 H (6-20) mg/dL Creatinine 1.64 H (0.60-1.20) mg/dL Glucose 140 H (70-105) mg/dL Calcium 7.7 L (8.6-10.3) mg/dL All other labs normal.
[2018-08-20] MEDS: Insulin LISPRO 300 UNITS/3 ML VIAL SQ SCH ×3 (11:23→18:08)
[2018-08-20] MEDS: 0.9 % Sodium Chloride 1,000 ML IVC SCH (11:38)
[2018-08-20] MEDS: MetroNIDAZOLE 500 MG/100 ML 500 MG/100 ML BAG IVPB SCH ×2 (11:39→20:43)
[2018-08-20] MEDS ORDERED: Dextrose Gel 15 GM/37.5 ML TUBE PO PRN ×2 (16:00)
[2018-08-20] MEDS ORDERED: D5% in Water 1,000 ML IVC PRN (16:00)
[2018-08-20] MEDS ORDERED: *HR* Dextrose 50 % in Water (Syg) 50 ML SYRINGE IVP PRN (16:00)
--- NOTE | 2018-08-20 16:01 | Internal Med Progress Note ---
Hospitalist Progress Note - Encounter Date of Encounter: 08/20/18 Time of Encounter: 15:58 - Subjective Interval History: Seen and examined at bedside. Patient is new to me, information obtained from chart review and patient report. Has some mild abdominal discomfort but overall significantly improved. No constipation or diarrhea. She would like to advance her diet if possible. - Exam Vitals: Temp Pulse Resp BP Pulse Ox 98.3 F 63 18 145/75 94 08/20/18 15:29 08/20/18 15:29 08/20/18 15:29 08/20/18 15:29 08/20/18 15:29 Exam: Constitutional: Vitals as noted. Conversant. No Apparent Distress. Obese Eyes : Sclera white, conjunctiva clear, no lid lag, PEARLA. ENT : Grossly normal hearing. Oropharyngeal exam unremarkable. Moist mucus membranes. No JVD, no cervical lymphadenopathy. no thyromegaly or mass. Respiratory : Clear to auscultation bilaterally. No accessory muscle use, rales, rhonchi or wheezes Cardiovascular : RRR, +S1, +S2. no murmur, gallop, rubs. No chest wall tende rness GI/Abdominal : Soft, Non-tender, Non-distended, normal bowel sounds, soft, no peritoneal signs. no orgenomegaly or mass appreciated. no hernia. Musculoskeletal: no deformity noted. no edema. warm extremities, pulses palpable and symmetrical in UE/LE. no calf tenderness. Neurological: AO X3, CN II-XII grossly intact, grossly normal motor and sensory exam. Skin: skin erosion 1x2 cm noted on abdomen with old scar noted on abdomen and legs. - Assessment and Plan (1) Sigmoid diverticulitis Current Visit: Yes Status: Acute Assessment and Plan: presented with RUQ/RLQ pain. ABD CT showed acute sigmoid diverticulitis. Con tinue IV Cipro and Flagyl. Follow-up to resolution with colonoscopy is recommended to exclude underlying mass however patient is declining at this time. Advance diet as tolerated. (2) Abnormal urinalysis Current Visit: Yes Status: Acute Assessment and Plan: ABD CT with mild bladder wall thickening consistent with cystitis. CT also concerning for possible colovesicular fistula versus gas-forming organism within the bladder. Evaluated by urology who felt findings are likely emphysematous cystitis. Continue IV Cipro. Follow urine culture and narrow ATB accordingly. (3) Diabetes Current Visit: No Status: Chronic Assessment and Plan: per hx. holding home oral hypoglycemics. Continue long-acting. SSI. Monitor blood sugar and titrate PRN (4) Chronic kidney disease, stage 3 Current Visit: No Status: Chronic Assessment and Plan: per hx. Renal function slightly higher than baseline. Continue IV fluids. Monitor repeat renal function. (5) Hypertension Current Visit: No Status: Chronic Assessment and Plan: - Blood pressure stable - Continue home medication and when confirmed (6) HLD (hyperlipidemia) Current Visit: Yes Status: Acute Assessment and Plan: per hx. Cont home statin DVT Prophylaxis: heparin - Time Spent with Patient Total time spent is greater than 50% in coordination of care (as documented) at patient's floor/unit and/or counseling patient: Internal Medicine: Result - Labs CBC & Chem 7: 08/20/18 02:50 08/20/18 02:50 Labs: Short CBC 08/20/18 Range/Units 02:50 WBC 8.8 (4.3-11.1) K/mcL Hgb 11.8 D (11.5-15.4) g/dL Hct 35.0 L (35.3-44.9) % Plt Count 249 (140-400) K/mcL Neutrophils # 4.7 (1.6-8.9) K/mcL BMP 08/20/18 02:50 Sodium 138 Potassium 3.6 Chloride 107 Carbon Dioxide 21 L BUN 21 H Creatinine 1.64 H Glucose 140 H Calcium 7.7 L - ABG Interpretation ABG results: PT/INR, D-dimer PT 12.9 Seconds (9.4-12.1) H 08/19/18 12:18 - Impressions Impressions Abdomen/Pelvis CT 08/19/18 11:57 IMPRESSION: 1. Findings consistent with acute sigmoid diverticulitis. Follow-up to resolution with colonoscopy is recommended to exclude an underlying mass. 2. Air within the bladder which may be related to recent instrumentation, clinical correlation is recommended. However, infection or fistulous connection to bowel cannot be excluded. Mild bladder wall thickening is also noted and may be related to cystitis. 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
[2018-08-20] MEDS: Gabapentin 300 MG CAPSULE PO SCH (20:43)
[2018-08-20] MEDS: *HR* Heparin 5,000 UNIT/ML VIAL SQ SCH (20:44)
[2018-08-20] MEDS ORDERED: NON-FORMULARY MEDICATION 1 EACH EACH (Insulin Glargine,Hum.Rec.Anlog [Basaglar Kwikpen U-1 SQ SCH (21:00)
[2018-08-20] MEDS ORDERED: clonazePAM 0.5 MG TABLET PO ONE (21:06)
[2018-08-20] MEDS: Insulin DETEMIR 100 UNIT/ML X5UNITS SQ SCH (21:44)
[2018-08-21] MEDS: MetroNIDAZOLE 500 MG/100 ML 500 MG/100 ML BAG IVPB SCH ×2 (04:01→13:12)
[2018-08-21] MEDS: *HR* Heparin 5,000 UNIT/ML VIAL SQ SCH ×2 (05:09→13:13)
[2018-08-21] MEDS: 0.9 % Sodium Chloride 1,000 ML IVC SCH (05:09)
[2018-08-21 05:39] LABS: Hematocrit 35.1 % (35.3-44.9); Hemoglobin 11.7 g/dL (11.5-15.4); Mean Corpuscular HGB Conc 33.3 g/dL (31.6-35.5); Mean Corpuscular Hemoglobin 27.9 pg (28.0-33.3); Mean Corpuscular Volume 83.6 fL (83.0-100.0); Platelet Count 263 K/mcL (140-400); Red Cell Distribution Width 13.9 % (11.5-14.5)
[2018-08-21 06:04] LABS: BUN/Creatinine Ratio 15 (6-26); Blood Urea Nitrogen 16 mg/dL (6-20); Calcium 8.1 mg/dL (8.6-10.3); Carbon Dioxide 25 mEq/L (23-29); Chloride 108 mEq/L (98-107); Glucose 138 mg/dL (70-105); Osmolality,Calculated 293 (280-300); Potassium 3.5 mEq/L (3.5-5.1); Sodium 140 mEq/L (136-145); eGFR For Non-African Americans 52 (> 60)
[2018-08-21] MEDS ORDERED: Aspirin 81 MG TAB.CHEW PO SCH (09:00)
[2018-08-21] MEDS ORDERED: Furosemide 20 MG TABLET PO SCH (09:00)
[2018-08-21 10:09] VITALS: BP 151/72
[2018-08-21] MEDS: Gabapentin 300 MG CAPSULE PO SCH (10:15)
[2018-08-21] MEDS: Insulin LISPRO 300 UNITS/3 ML VIAL SQ SCH ×2 (10:16→13:12)
[2018-08-21] MEDS: Insulin DETEMIR 100 UNIT/ML X5UNITS SQ SCH (10:16)
--- NOTE | 2018-08-21 13:13 | Internal Med Progress Note ---
Hospitalist Progress Note - Encounter Date of Encounter: 08/21/18 - Exam Vitals: Temp Pulse Resp BP Pulse Ox 97.9 F 64 15 151/72 95 08/21/18 10:07 08/21/18 10:07 08/21/18 10:07 08/21/18 10:07 08/21/18 10:07 Exam: Constitutional: Vitals as noted. Conversant. No Apparent Distress. Obese Eyes : Sclera white, conjunctiva clear, no lid lag, PEARLA. ENT : Grossly normal hearing. Oropharyngeal exam unremarkable. Moist mucus membranes. No JVD, no cervical lymphadenopathy. no thyromegaly or mass. Respiratory : Clear to auscultation bilaterally. No accessory muscle use, ra les, rhonchi or wheezes Cardiovascular : RRR, +S1, +S2. no murmur, gallop, rubs. No chest wall tenderness GI/Abdominal : Soft, Non-tender, Non-distended, normal bowel sounds, soft, no peritoneal signs. no orgenomegaly or mass appreciated. no hernia. Musculoskeletal: no deformity noted. no edema. warm extremities, pulses palpable and symmetrical in UE/LE. no calf tenderness. Neurological: AO X3, CN II-XII grossly intact, grossly normal motor and sensory exam. Skin: skin erosion 1x2 cm noted on abdomen with old scar noted on abdomen and legs. - Summary of Assessment and Plan Summary of Assessment and Plan: Per H&P: """"Ms. Brothers is a 58 year old female past medical history of diabetes, coronary artery disease, hypertension, hyperlipidemia, CKD who was seen at urgent care center for right-sided abdominal pain and discharged with diagnosis of muscle spasm came in again today with similar symptoms as he did not resolve. She denied any fevers chills nausea vomiting. She denies any burning urination. She denies any bowel complaints except occasional diarrhea. She has a history of multiple UTIs in past year. She denied any difficulty breathing or chest pain or back pain. Denies any previous history of kidney stones. Patient was evaluated in ER with lab work and CT abdomen. Labs showed mild leukocytosis, stable CKD. Abdominal/pelvis CT showed findings consistent with sigmoid diverticulitis as well as air within the bladder and mild bladder wall thickening. Patient denied any left-sided abdominal pain. Patient received 1 dose of ciprofloxacin and metronidazole in ER. On my interview patient feeling well denied any abdominal pain, fevers chills nausea or vomiting."""" (1) Sigmoid diverticulitis Current Visit: Yes Status: Acute Assessment and Plan: presented with RUQ/RLQ pain. ABD CT showed acute sigmoid diverticulitis. Continue IV Cipro and Flagyl. Follow-up to resolution with colonoscopy is recommended to exclude underlying mass however patient is declining at this time. Advance diet as tolerated. CT:1. Findings consistent with acute sigmoid diverticulitis. Follow-up to resolution with colonoscopy is recommended to exclude an underlying mass. 2. Air within the bladder which may be related to recent instrumentation, clinical correlation is recommended. However, infection or fistulous connection to bowel cannot be excluded. Mild bladder wall thickening is also noted and may be related to cystitis. (2) Abnormal urinalysis Current Visit: Yes Status: Acute Assessment and Plan: ABD CT with mild bladder wall thickening consistent with cystitis. CT also concerning for possible colovesicular fistula versus gas-forming organism within the bladder. Evaluated by urology who felt findings are likely emphysematous cystitis. Continue IV Cipro. Follow urine culture and narrow ATB accordingly. Urology: (1) Emphysematous cystitis Current Visit: Yes Status: Acute Assessment and plan: Patient is a 58-year-old female who presents the history of emphysematous cystitis. Vital signs are currently stable and afebrile. White blood cell count is reassuring. Urinalysis is grossly positive, and urine culture is pend ing. Patient has received 1 dose of Cipro. Discussed the likelihood of bacterial colonization within the urinary bladder, although, patient is symptomatic with current urinary tract infection. CT report suggests the possibility of colovesicular fistula versus gas-forming organism within the bladder. Reviewed CT images with Dr. Feng who feels the likelihood of emphysematous cystitis is most likely. I recommend treating patient with IV antibiotics until urine culture is obtained, and then she may be transitioned to oral antibiotics for continued outpatient therapy. There is no urologic surgical intervention anticipated at this time. (3) Diabetes Current Visit: No Status: Chronic Assessment and Plan: per hx. holding home oral hypoglycemics. Continue long-acting. SSI. Monitor blood sugar and titrate PRN (4) Chronic kidney disease, stage 3 Current Visit: No Status: Chronic Assessment and Plan: per hx. Renal function slightly higher than baseline. Continue IV fluids. Monitor repeat renal function. (5) Hypertension Current Visit: No Status: Chronic Assessment and Plan: - Blood pressure stable - Continue home medication and when confirmed (6) HLD (hyperlipidemia) Current Visit: Yes Status: Acute Assessment and Plan: per hx. Cont home statin DVT Prophylaxis: heparin MED REC NOTE HOME MEDLIST WAS COMPILED USING PHARMACY QUERY, [facility] PATIENT, [facility], CALL TO [facility] [phone], AND CALL TO [facility] [phone]. THE FOLLOWING DISCREPANCIES WERE FOUND: VITAMIN D2 50,000: PATIENT STATES SHE TAKES 1 GELCAP PO TWICE WEEKLY ON THURSDAY, AND THURSDAY. HOWEVER SHE IS PRESCRIBED 1 GELCAP PO ONCE WEEKLY GABAPENTIN 600 & 100MG: PATIENT IS PRESCRIBED 1 PO TWICE DAILY, LAST FILLED 07/27/18 #60/30 DAYS SUPPLY, HOWEVER THE PATIENTS STATES SHE TAKES 1 100MG PO IN THE MORNING, AND THE 600MG 1 PO TWICE DAILY. BASAGLAR 100 UNITS/ML: PATIENT STATES SHE TAKES 35 UNITS SQ TWICE DAILY, HOWEVER SHE IS PRESCRIBED 37 UNITS SQ TWICE DAILY. LOTRISONE CREAM: PATIENT STATES SHE USES IT NEEDED, HOWEVER SHE IS PRESCRIBED 1 APPLICATION TWICE DAILY. - Time Spent with Patient Total time spent is greater than 50% in coordination of care (as documented) at patient's floor/unit and/or counseling patient: Internal Medicine: Result - Labs CBC & Chem 7: 08/21/18 05:03 08/21/18 05:03 Labs: Short CBC 08/21/18 Range/Units 05:03 WBC 8.6 (4.3-11.1) K/mcL Hgb 11.7 (11.5-15.4) g/dL Hct 35.1 L (35.3-44.9) % Plt Count 263 (140-400) K/mcL BMP 08/21/18 05:03 Sodium 140 Potassium 3.5 Chloride 108 H Carbon Dioxide 25 BUN 16 Creatinine 1.09 Glucose 138 H Calcium 8.1 L - ABG Interpretation ABG results: PT/INR, D-dimer PT 12.9 Seconds (9.4-12.1) H 08/19/18 12:18 Consult Discharge Plan - Plan Referrals: Kavitha Yu DO [Primary Care Provider] -
--- NOTE | 2018-08-21 13:48 | Discharge Summary ---
- NOTES TO OUTPATIENT PROVIDER Notes to Outpatient Provider: Diverticulitis and emphysematous cystitis. WOuld need OP colonoscopy (GI referral) and possibly urology follow up if recurrence of symptoms. Orders not resulted at time of discharge: Pending orders 08/20/18 10:46 Culture,Urine [RM] Routine 08/22/18 04:00 BMP [Basic Metabolic Panel] AM 0400 Complete Blood Count w/o Diff [HEME] AM 0400 08/23/18 04:00 BMP [Basic Metabolic Panel] AM 0400 Complete Blood Count w/o Diff [HEME] AM 0400 08/24/18 04:00 BMP [Basic Metabolic Panel] AM 0400 Complete Blood Count w/o Diff [HEME] AM 0400 08/25/18 04:00 BMP [Basic Metabolic Panel] AM 0400 Complete Blood Count w/o Diff [HEME] AM 0400 Date of Encounter: 08/21/18 Time of Encounter: 13:44 - Discharge Diagnosis (1) Emphysematous cystitis Priority: Secondary Status: Acute (2) Sigmoid diverticulitis Priority: Primary Status: Acute Hospital course: Per H&P: """"Ms. Brothers is a 58 year old female past medical history of diabetes, coronary artery disease, hypertension, hyperlipidemia, CKD who was seen at urgent care center for right-sided abdominal pain and discharged with diagnosis of muscle spasm came in again today with similar symptoms as he did not resolve. She denied any fevers chills nausea vomiting. She denies any burning urination. She denies any bowel complaints except occasional diarrhea. She has a history of multiple UTIs in past year. She denied any difficulty breathing or chest pain or back pain. Denies any previous history of kidney stones. Patient was evaluated in ER with lab work and CT abdomen. Labs showed mild leukocytosis, stable CKD. Abdominal/pelvis CT showed findings consistent with sigmoid diverticulitis as well as air within the bladder and mild bladder wall thickening. Patient denied any left-sided abdominal pain. Patient received 1 dose of ciprofloxacin and metronidazole in ER. On my interview patient feeling well denied any abdominal pain, fevers chills nausea or vomiting."""" (1) Acute Sigmoid diverticulitis She presented with RUQ/RLQ pain. ABD CT showed acute sigmoid diverticulitis. Her diet was advance as tolerated and was tolerating diabetic diet without any concerns on the day of discharge. In fact, her ROS was negative except 3-6 episodes of diarrhea per day. I offered her another night in the hospital to ensure diarrhea resolves, but she felt well enough to be discharged home and requested so. WBC 14k---> 8k. She was treated with IV Cipro and Flagyl in the hospital and switched to oral for 9 more days for a total 10-day course. 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 Seen by Urology who felt findings are likely emphysematous cystitis and recommended followed by oral antibiotics after urine cultures. Urine cultures revealed mixed aditi. Considering patient's clinical improvement, IV cipro was switched to PO cipro on discharge. (3) LEONIE on CKD, Resolved with IV fluids (Cr 1.6 --> 1.0) Lasix was discontinued on discharge as she is on triametere-HCTZ as well (4) Hypertension Home medicines were resumed Other medical problems remained stable Discharge discussed with: patient, nurse - Time Spent with Patient Total time spent providing and/or coordinating discharge services: Greater than 30 minutes - Discharge Medications Prescriptions: Ciprofloxacin [Cipro] 500 mg PO BID 9 Days #18 tablet metroNIDAZOLE [Metronidazole] 500 mg PO Q8H 9 Days #27 tablet Home Medications: Carvedilol [Coreg] 12.5 mg PO BID 10/31/15 [History] Cholecalciferol (Vitamin D3) [Vitamin D3] 50,000 unit PO TUSA 10/31/15 [History] FLUoxetine HCl [Prozac] 20 mg PO DAILY 10/31/15 [History] Omeprazole 20 mg PO DAILY 10/31/15 [History] Triamterene/HCTZ 37.5/25mg [Dyazide] 1 tab PO DAILY #0 10/31/15 [History] Albuterol Sulfate [Proair Hfa] 2 puff IH Q4H PRN 06/06/16 [History] Aspirin 81 mg PO DAILY 06/06/16 [History] lamoTRIgine [Lamictal] 200 mg PO DAILY 09/20/16 [History] clonazePAM [Klonopin] 0.5 mg PO BID PRN 11/01/17 [History] metFORMIN [Glucophage] 1,000 mg PO BID 11/01/17 [History] Insulin Glargine,Hum.rec.anlog [Basaglar Mercedesikpen U-100] 35 unit SQ BID 03/26/18 [History] Insulin LISPRO [Admelog] 18 unit SQ TIDWM 03/26/18 [History] Lovastatin 40 mg PO DAILY 03/26/18 [History] Gabapentin 600 mg PO BID 07/23/18 [History] Acetaminophen [Tylenol] 1,000 mg PO Q4-6H PRN #20 tablet 08/06/18 [Rx] Gabapentin [Neurontin] 100 mg PO QAM 08/20/18 [History] Ondansetron HCl [Zofran] 8 mg PO DAILY PRN 08/20/18 [History] traZODone [TraZODone] 50 mg PO HS 08/20/18 [History] Ciprofloxacin [Cipro] 500 mg PO BID 9 Days #18 tablet 08/21/18 [Rx] metroNIDAZOLE [Metronidazole] 500 mg PO Q8H 9 Days #27 tablet 08/21/18 [Rx] Allergies/Adverse Reactions: Allergy/AdvReac Type Severity Reaction Status Date / Time Penicillins Allergy Hives Verified 08/20/18 15:48 Date of admission: 08/19/18 16:10 Primary care physician: Kavitha Yu DO Consults: 08/19/18 18:16 Consult to Urology [CONS] Routine Consulting Provider: [facility] [place] Reason for Consult: air in bladder, sigmoid diverticulitis Call Completed: Yes Discharging clinician: Martha Katz - Constitutional Vitals: Temp Pulse Resp BP Pulse Ox 97.9 F 64 15 151/72 95 08/21/18 10:07 08/21/18 10:07 08/21/18 10:07 08/21/18 10:07 08/21/18 10:07 Exam: Constitutional: Vitals as noted. Conversant. No Apparent Distress. Obese Eyes : Sclera white, conjunctiva clear, ENT : Grossly normal hearing. Oropharyngeal exam unremarkable. Moist mucus membranes. No JVD, Respiratory : Clear to auscultation bilaterally. No accessory muscle use, rales, rhonchi or wheezes Cardiovascular : RRR, +S1, +S2. no murmur, gallop, rubs. No chest wall tenderness GI/Abdominal : Soft, Non-tender, Non-distended, normal bowel sounds, soft, no peritoneal signs. no orgenomegaly or mass appreciated. no hernia. Musculoskeletal: no deformity noted. no edema. warm extremities, pulses palpable and symmetrical in UEE. no calf tenderness. Neurological: AO X3, no dysarthria, grossly normal motor and sensory exam. Skin: skin erosion 1x2 cm noted on abdomen with old scar noted on abdomen and legs. - Patient Status Disposition: Home, Self-Care Condition: Fair Overall status at discharge: patient is back to baseline - Discharge Instructions Follow Up With: Kavitha Yu DO [Primary Care Provider] - Additional Instructions: 1. Stop Lasix 2. Complete course of two antibiotics (Flagyl and Cipro) 3. No other changes mad ein your home medicines 4. Keep yourself well-hydrated 5. Follow with PCP and discuss referral to GI for colonoscopy to rule out any mass or other concerns in large gut causing diverticulitis - Diet and Activity Activity: resume usual activities as tolerated Diet: advance to your usual diet, diabetic diet
== END 2018-08-21 15:29 | disposition home or self-care (01) ==
LOC: 3ANU 10:35 → EMEROOARM 10:35 → 3ANU 17:14
PROVIDERS: ADMIT Internal Medicine; ATTEND Internal Medicine

== ENCOUNTER 2020-08-03 11:24 | Inpatient (IN) ==
[2020-08-03] MEDS ORDERED: methylPREDNISolone 125 MG/2 ML VIAL ONE (11:35)
[2020-08-03] MEDS ORDERED: Azithromycin 500 MG in D5% in Water 250 ML IVPB ONE (11:39)
[2020-08-03] MEDS ORDERED: cefTRIAXone 1,000 MG in Water for inj. (sterile) 10 ML IVP ONE (11:39)
[2020-08-03] MEDS ORDERED: methylPREDNISolone 125 MG/2 ML VIAL IM ONE (11:39)
[2020-08-03] MEDS ORDERED: Ipratropium/Albuterol Neb 3 ML IH ONE (11:39)
[2020-08-03] MEDS ORDERED: Aspirin 325 MG TABLET PO ONE (11:41)
[2020-08-03 11:48] LABS: ABG Base Excess -13 mEq/L (-2 to 3); ABG HCO3 16 mEq/L (21-27); ABG Oxygen Saturation 84 % (95-98); ABG PCO2 52 mmHg (35-45); ABG PH 7.11 pH Units (7.32-7.45); ABG PO2 66 mmHg (85-104); ABG TCO2 18 mEq/L (20-26); Blood Gas Modality ST; Blood Gas Pressure Support 7 cm H2O
[2020-08-03 12:11] LABS: Basophils % 0.8 %; Eosinophils % 3.5 %; Mean Platelet Volume 9.4 fL (9.4-12.4); Nucleated Red Blood Cells 0.8 /100 WBC (0); Red Cell Distribution Width 19.8 % (11.5-14.5)
[2020-08-03 12:12] LABS: Basophils # 0.2 K/mcL (0.0-0.2); Eosinophils # 0.7 K/mcL (0.0-0.6); Hematocrit 22.5 % (35.3-44.9); Immature Granulocytes % 1.3 % (0-4); Lymphocytes # 6.2 K/mcL (0.6-4.6); Lymphocytes % 31.6 %; Mean Corpuscular HGB Conc 26.7 g/dL (31.6-35.5); Mean Corpuscular Hemoglobin 18.2 pg (28.0-33.3); Mean Corpuscular Volume 68.4 fL (83.0-100.0); Monocytes # 1.1 K/mcL (0.0-1.3); Monocytes % 5.4 %; Neutrophils # 11.3 K/mcL (1.6-8.9); Platelet Count 526 K/mcL (140-400); Red Blood Count 3.29 M/mcL (3.82-4.97); Segmented Neutrophils % 57.4 %; White Blood Count 19.7 K/mcL (4.3-11.1)
[2020-08-03 12:31] LABS: Albumin 3.6 g/dL (3.5-5.7); Albumin/Globulin Ratio 1.2 (1.1-2.2); Bilirubin,Indirect 0.2 mg/dL (0.0-1.0); Bilirubin,Total 0.2 mg/dL (0.3-1.0); Calcium 8.5 mg/dL (8.6-10.3); Globulin 3.1 g/dL (2.4-3.5); Magnesium 1.6 mg/dL (1.6-2.6); Total Protein 6.7 g/dL (6.4-8.9)
[2020-08-03 12:37] LABS: Hypochromasia Present (Not Present); Microcytosis Present (Not Present)
[2020-08-03 12:38] LABS: Poikilocytosis 1+ (Not Present)
[2020-08-03 12:48] LABS: Troponin I 0.03 ng/mL (< 0.04)
[2020-08-03 13:03] LABS: ABG Base Excess -8 mEq/L (-2 to 3); ABG HCO3 18 mEq/L (21-27); ABG Oxygen Saturation 89 % (95-98); ABG PCO2 39 mmHg (35-45); ABG PH 7.29 pH Units (7.32-7.45); ABG PO2 62 mmHg (85-104); ABG TCO2 20 mEq/L (20-26)
[2020-08-03 13:14] LABS: Adenovirus Not Detected (Not Detect); Bordetella Pertussis Not Detected (Not Detect); Chlamydophila pneumoniae Not Detected (Not Detect); Coronavirus 229E Not Detected (Not Detect); Coronavirus HKU1 Not Detected (Not Detect); Coronavirus NL63 Not Detected (Not Detect); Coronavirus OC43 Not Detected (Not Detect); Human Metapneumovirus Not Detected (Not Detect); Human Rhinovirus/Enterovirus Not Detected (Not Detect); Influenza A Subtype 2009 H1 Not Detected (Not Detect); Influenza B Not Detected (Not Detect); Mycoplasma pneumoniae Not Detected (Not Detect); Parainfluenza Virus 1 Not Detected (Not Detect); Parainfluenza Virus 2 Not Detected (Not Detect); Parainfluenza Virus 3 Not Detected (Not Detect); Parainfluenza Virus 4 Not Detected (Not Detect); Respiratory Syncytial Virus Not Detected (Not Detect); SARS-CoV-2 Not Detected (Not Detect)
[2020-08-03 13:23] LABS: Bacteria,Urine Few per hpf (None-Few); Bilirubin,Urine Negative (Negative); Blood,Urine Trace (Negative); Clarity,Urine Clear (Clear); Color,Urine Light-Yellow (Yellow); Glucose,Urine (UA) 50 mg/dL (Normal); Ketones,Urine Negative (Negative); Leukocyte Esterase,Urine Moderate (Negative); Mucus,Urine Few per lpf (None-Few); Nitrite,Urine Negative (Negative); PH,Urine 6.5 pH Units (5.0-8.0); Protein,Urine >=300 mg/dL (Neg-Trace); Specific Gravity,Urine 1.013 (1.010-1.025); Squamous Epithelial Cell,Urine Few per hpf (None-Few); Urobilinogen,Urine Normal (Normal); WBC,Urine TNTC per hpf (0-3)
[2020-08-03 14:41] LABS: ABG Base Excess -6 mEq/L (-2 to 3); ABG HCO3 20 mEq/L (21-27); ABG Oxygen Saturation 99 % (95-98); ABG PCO2 38 mmHg (35-45); ABG PH 7.32 pH Units (7.32-7.45); ABG PO2 130 mmHg (85-104); ABG TCO2 21 mEq/L (20-26)
[2020-08-03] MEDS ORDERED: 0.9 % Sodium Chloride 250 ML ONE ×2 (15:06→19:20)
[2020-08-03] MEDS ORDERED: Furosemide 40 MG/4 ML VIAL IVP ONE (15:55)
[2020-08-03] MEDS ORDERED: Ondansetron 4 MG/2 ML VIAL IVP PRN (15:57)
[2020-08-03] MEDS ORDERED: Naloxone 0.4 MG/ML INJ IVP PRN (15:57)
[2020-08-03] MEDS ORDERED: D5% in Water 1,000 ML IVC PRN (16:00)
[2020-08-03] MEDS ORDERED: *HR* Dextrose 50 % in Water (Vial) 50 ML VIAL IVP PRN (16:00)
[2020-08-03] MEDS ORDERED: Dextrose Gel 15 GM/37.5 ML TUBE PO PRN ×2 (16:00)
[2020-08-03] MEDS ORDERED: Perflutren Lipid Microsphere 1.3 ML in 0.9 % Sodium Chloride 8.7 ML IVP PRN (16:47)
[2020-08-03] MEDS ORDERED: Insulin LISPRO 300 UNITS/3 ML VIAL SUBQ SCH ×2 (18:00→21:00)
[2020-08-03] MEDS: Insulin DETEMIR 100 UNIT/ML X5UNITS SUBQ SCH (19:58)
[2020-08-03] MEDS: Pantoprazole 40 MG VIAL IVP SCH (19:58)
[2020-08-03] MEDS: carvediloL 25 MG TABLET PO SCH (19:58)
[2020-08-03] MEDS: Ipratropium/Albuterol Neb 3 ML IH SCH (22:43)
[2020-08-03] MEDS: Acetylcysteine 10% 2 ML INHSOL IH SCH (22:43)
[2020-08-04] MEDS ORDERED: Insulin LISPRO 300 UNITS/3 ML VIAL SUBQ SCH
[2020-08-04 00:19] LABS: Basophils % 0.2 %; Hematocrit 25.1 % (35.3-44.9); Hemoglobin 7.4 g/dL (11.5-15.4); Immature Granulocytes % 1.1 % (0-4); Lymphocytes % 8.3 %; Mean Corpuscular HGB Conc 29.5 g/dL (31.6-35.5); Mean Corpuscular Hemoglobin 20.8 pg (28.0-33.3); Mean Corpuscular Volume 70.7 fL (83.0-100.0); Mean Platelet Volume 9.2 fL (9.4-12.4); Monocytes # 0.2 K/mcL (0.0-1.3); Monocytes % 1.4 %; Neutrophils # 10.8 K/mcL (1.6-8.9); Nucleated Red Blood Cells 0.2 /100 WBC (0); Platelet Count 305 K/mcL (140-400); Red Blood Count 3.55 M/mcL (3.82-4.97); Red Cell Distribution Width 22.5 % (11.5-14.5); White Blood Count 12.1 K/mcL (4.3-11.1)
[2020-08-04 00:26] LABS: INR 1.2
[2020-08-04 00:40] LABS: Calcium 8.2 mg/dL (8.6-10.3); Potassium 4.8 mEq/L (3.5-5.1)
[2020-08-04] MEDS: Ipratropium/Albuterol Neb 3 ML IH SCH ×5 (03:37→21:54)
[2020-08-04] MEDS: Acetylcysteine 10% 2 ML INHSOL IH SCH ×5 (03:37→21:54)
[2020-08-04] MEDS: Insulin LISPRO 300 UNITS/3 ML VIAL SUBQ SCH ×3 (08:10→17:04)
[2020-08-04] MEDS: Furosemide 40 MG/4 ML VIAL IVP SCH (08:11)
[2020-08-04] MEDS: carvediloL 25 MG TABLET PO SCH ×2 (08:11→20:04)
[2020-08-04] MEDS: Pantoprazole 40 MG VIAL IVP SCH ×2 (08:12→20:05)
[2020-08-04] MEDS ORDERED: amLODIPine 5 MG TABLET PO SCH (10:00)
[2020-08-04] MEDS ORDERED: 0.9 % Sodium Chloride 250 ML ONE (10:16)
[2020-08-04] MEDS ORDERED: clonazePAM 0.5 MG TABLET PO PRN (11:20)
[2020-08-04] MEDS ORDERED: traZODone 50 MG TABLET PO PRN (11:20)
[2020-08-04] MEDS: Aspirin 81 MG TAB.CHEW PO SCH (11:42)
[2020-08-04] MEDS: cefTRIAXone 2,000 MG in 0.9 % Sodium Chloride Mini Bag 100 ML IVPB SCH (12:43)
[2020-08-04] MEDS: Azithromycin 500 MG in 0.9 % Sodium Chloride 250 ML IVPB SCH (12:45)
[2020-08-04 14:46] LABS: Hematocrit 26.1 % (35.3-44.9); Hemoglobin 7.7 g/dL (11.5-15.4)
[2020-08-04] MEDS: Insulin DETEMIR 100 UNIT/ML X5UNITS SUBQ SCH (20:05)
[2020-08-05 03:08] LABS: Basophils # 0.1 K/mcL (0.0-0.2); Basophils % 0.5 %; Eosinophils # 0.2 K/mcL (0.0-0.6); Eosinophils % 1.5 %; Hematocrit 28.9 % (35.3-44.9); Hemoglobin 8.5 g/dL (11.5-15.4); Immature Granulocytes % 0.5 % (0-4); Lymphocytes % 23.6 %; Mean Corpuscular HGB Conc 29.4 g/dL (31.6-35.5); Mean Corpuscular Hemoglobin 21.4 pg (28.0-33.3); Mean Corpuscular Volume 72.8 fL (83.0-100.0); Mean Platelet Volume 9.3 fL (9.4-12.4); Monocytes # 0.8 K/mcL (0.0-1.3); Monocytes % 5.9 %; Neutrophils # 8.8 K/mcL (1.6-8.9); Nucleated Red Blood Cells 0.2 /100 WBC (0); Platelet Count 331 K/mcL (140-400); Red Blood Count 3.97 M/mcL (3.82-4.97); Red Cell Distribution Width 23.6 % (11.5-14.5); White Blood Count 12.9 K/mcL (4.3-11.1)
[2020-08-05 03:27] LABS: Calcium 8.6 mg/dL (8.6-10.3); Potassium 3.8 mEq/L (3.5-5.1)
[2020-08-05] MEDS: Ipratropium/Albuterol Neb 3 ML IH SCH ×4 (04:06→22:15)
[2020-08-05] MEDS: Acetylcysteine 10% 2 ML INHSOL IH SCH ×4 (04:06→22:15)
[2020-08-05 04:12] LABS: Platelet Estimate Normal (Normal); Poikilocytosis 1+ (Not Present)
[2020-08-05] MEDS: Insulin LISPRO 300 UNITS/3 ML VIAL SUBQ SCH ×3 (07:45→16:12)
[2020-08-05] MEDS: Aspirin 81 MG TAB.CHEW PO SCH (08:22)
[2020-08-05] MEDS: amLODIPine 5 MG TABLET PO SCH (08:23)
[2020-08-05] MEDS: lamoTRIgine 100 MG TABLET PO SCH (08:23)
[2020-08-05] MEDS: FLUoxetine 20 MG CAPSULE PO SCH (08:23)
[2020-08-05] MEDS: Furosemide 40 MG/4 ML VIAL IVP SCH (08:23)
[2020-08-05] MEDS: Pantoprazole 40 MG VIAL IVP SCH ×2 (08:23→20:10)
[2020-08-05] MEDS: Gabapentin 300 MG CAPSULE PO SCH (08:23)
[2020-08-05] MEDS: carvediloL 25 MG TABLET PO SCH ×2 (08:23→16:12)
[2020-08-05] MEDS ORDERED: NON-FORMULARY MEDICATION 1 EACH EACH (Omeprazole 20 MG) PO SCH (09:00)
[2020-08-05] MEDS ORDERED: Perflutren Lipid Microsphere 1.3 ML in 0.9 % Sodium Chloride 8.7 ML IVP PRN (09:34)
[2020-08-05] MEDS ORDERED: Vancomycin 1,000 MG, 0.9 % Sodium Chloride 1,000 ML IR ONE (10:21)
[2020-08-05] MEDS: Azithromycin 500 MG in 0.9 % Sodium Chloride 250 ML IVPB SCH (13:19)
[2020-08-05] MEDS: Vancomycin 1,750 MG/517.5 ML IV.SOLN IVPB SCH (13:19)
[2020-08-05] MEDS: cefTRIAXone 2,000 MG in 0.9 % Sodium Chloride Mini Bag 100 ML IVPB SCH (13:20)
[2020-08-05] MEDS: clonazePAM 0.5 MG TABLET PO SCH (20:09)
[2020-08-05] MEDS: Insulin DETEMIR 100 UNIT/ML X5UNITS SUBQ SCH (20:10)
[2020-08-05] MEDS ORDERED: Furosemide 40 MG/4 ML VIAL IVP SCH (21:00)
[2020-08-05 23:33] LABS: Hematocrit 27.4 % (35.3-44.9); Hemoglobin 8.1 g/dL (11.5-15.4); Mean Corpuscular HGB Conc 29.6 g/dL (31.6-35.5); Mean Corpuscular Hemoglobin 21.2 pg (28.0-33.3); Mean Corpuscular Volume 71.7 fL (83.0-100.0); Platelet Count 324 K/mcL (140-400); Red Blood Count 3.82 M/mcL (3.82-4.97); Red Cell Distribution Width 23.8 % (11.5-14.5); White Blood Count 10.9 K/mcL (4.3-11.1)
[2020-08-06] MEDS: Acetylcysteine 10% 2 ML INHSOL IH SCH ×4 (03:44→22:16)
[2020-08-06] MEDS: Ipratropium/Albuterol Neb 3 ML IH SCH ×4 (03:44→22:16)
[2020-08-06 03:46] LABS: Basophils # 0.1 K/mcL (0.0-0.2); Basophils % 0.5 %; Eosinophils # 0.3 K/mcL (0.0-0.6); Eosinophils % 3.3 %; Hematocrit 26.3 % (35.3-44.9); Hemoglobin 7.9 g/dL (11.5-15.4); Immature Granulocytes % 0.5 % (0-4); Lymphocytes # 2.5 K/mcL (0.6-4.6); Lymphocytes % 23.8 %; Mean Corpuscular Hemoglobin 21.8 pg (28.0-33.3); Mean Corpuscular Volume 72.7 fL (83.0-100.0); Monocytes # 0.7 K/mcL (0.0-1.3); Platelet Count 299 K/mcL (140-400); Red Blood Count 3.62 M/mcL (3.82-4.97); Red Cell Distribution Width 23.6 % (11.5-14.5); Segmented Neutrophils % 64.9 %; White Blood Count 10.4 K/mcL (4.3-11.1)
[2020-08-06 03:49] LABS: Neutrophils # 6.8 K/mcL (1.6-8.9)
[2020-08-06 04:08] LABS: Calcium 8.3 mg/dL (8.6-10.3); Potassium 3.3 mEq/L (3.5-5.1)
[2020-08-06 04:11] LABS: Platelet Estimate Normal (Normal)
[2020-08-06 04:12] LABS: Anisocytosis 1+ (Not Present); Poikilocytosis 1+ (Not Present); Polychromasia 1+ (Not Present)
[2020-08-06] MEDS: Insulin LISPRO 300 UNITS/3 ML VIAL SUBQ SCH ×3 (10:05→17:38)
[2020-08-06] MEDS: FLUoxetine 20 MG CAPSULE PO SCH (10:27)
[2020-08-06] MEDS: carvediloL 25 MG TABLET PO SCH ×2 (10:28→17:37)
[2020-08-06] MEDS: lamoTRIgine 100 MG TABLET PO SCH (10:28)
[2020-08-06] MEDS: Aspirin 81 MG TAB.CHEW PO SCH (10:28)
[2020-08-06] MEDS: Gabapentin 300 MG CAPSULE PO SCH (10:28)
[2020-08-06] MEDS: amLODIPine 5 MG TABLET PO SCH (10:28)
[2020-08-06] MEDS: Furosemide 20 MG TABLET PO SCH (10:28)
[2020-08-06] MEDS: clonazePAM 0.5 MG TABLET PO SCH (10:29)
[2020-08-06] MEDS: Pantoprazole 40 MG VIAL IVP SCH (10:30)
[2020-08-06] MEDS: clonazePAM 0.5 MG TABLET PO PRN (10:49)
[2020-08-06] MEDS: cefTRIAXone 2,000 MG in 0.9 % Sodium Chloride Mini Bag 100 ML IVPB SCH (10:49)
[2020-08-06] MEDS: Vancomycin 1,750 MG/517.5 ML IV.SOLN IVPB SCH (11:32)
[2020-08-06] MEDS: Insulin DETEMIR 100 UNIT/ML X5UNITS SUBQ SCH (20:01)
[2020-08-07] MEDS: Acetylcysteine 10% 2 ML INHSOL IH SCH ×2 (03:50→10:14)
[2020-08-07] MEDS: Ipratropium/Albuterol Neb 3 ML IH SCH ×2 (03:50→10:14)
[2020-08-07 05:07] LABS: Hematocrit 27.7 % (35.3-44.9); Hemoglobin 8.2 g/dL (11.5-15.4); Mean Corpuscular HGB Conc 29.6 g/dL (31.6-35.5); Mean Corpuscular Hemoglobin 21.6 pg (28.0-33.3); Mean Corpuscular Volume 73.1 fL (83.0-100.0); Platelet Count 301 K/mcL (140-400); Red Blood Count 3.79 M/mcL (3.82-4.97); Red Cell Distribution Width 23.9 % (11.5-14.5); White Blood Count 9.9 K/mcL (4.3-11.1)
[2020-08-07 05:29] LABS: Albumin 3.2 g/dL (3.5-5.7); Albumin/Globulin Ratio 1.2 (1.1-2.2); Bilirubin,Total 0.2 mg/dL (0.3-1.0); Calcium 7.9 mg/dL (8.6-10.3); Globulin 2.7 g/dL (2.4-3.5); Magnesium 1.3 mg/dL (1.6-2.6); Potassium 3.4 mEq/L (3.5-5.1); Total Protein 5.9 g/dL (6.4-8.9)
[2020-08-07] MEDS: Insulin LISPRO 300 UNITS/3 ML VIAL SUBQ SCH ×2 (07:33→11:35)
[2020-08-07] MEDS: Gabapentin 300 MG CAPSULE PO SCH (07:43)
[2020-08-07] MEDS: carvediloL 25 MG TABLET PO SCH (07:43)
[2020-08-07] MEDS: lamoTRIgine 100 MG TABLET PO SCH (07:43)
[2020-08-07] MEDS: FLUoxetine 20 MG CAPSULE PO SCH (07:44)
[2020-08-07] MEDS: Aspirin 81 MG TAB.CHEW PO SCH (07:44)
[2020-08-07] MEDS: Furosemide 20 MG TABLET PO SCH (07:44)
[2020-08-07] MEDS: amLODIPine 5 MG TABLET PO SCH (07:44)
[2020-08-07] MEDS: clonazePAM 0.5 MG TABLET PO PRN (07:49)
[2020-08-07 10:56] VITALS: BP 157/80
[2020-08-07] MEDS ORDERED: Nitrofurantoin (BID) 100 MG CAPSULE PO ONE (12:58)
== END 2020-08-07 14:33 | disposition home health service (06) | DRG 720 ==
LOC: 2NNU 11:24 → EMEROOARM 11:24 → 2NNU 17:40 → SUATTDRO 18:21 → 2ANU 08-04 22:33
PROVIDERS: ADMIT Internal Medicine; ATTEND Internal Medicine

== ENCOUNTER 2020-10-25 09:29 | Observation (INO) ==
[~2020-10-25 09:29] MED LIST: Lidocaine -MPF 2% 2 ML VIAL ONE
[2020-10-25 11:13] LABS: Hematocrit 20.5 % (35.3-44.9); Hemoglobin 6.1 g/dL (11.5-15.4)
[2020-10-25] MEDS ORDERED: *HR* Labetalol 20 MG/4 ML SYRINGE IVP ONE (11:54)
[2020-10-25] MEDS ORDERED: Mag Hydrox/Al Hydrox/Simeth 30 ML UDC PO PRN (13:32)
[2020-10-25] MEDS ORDERED: Naloxone 0.4 MG/ML INJ IVP PRN (13:32)
[2020-10-25] MEDS ORDERED: Ondansetron ODT 4 MG TAB.RAPDIS SL PRN (13:32)
[2020-10-25] MEDS ORDERED: Melatonin 3 MG TABLET PO PRN (13:32)
[2020-10-25] MEDS ORDERED: *HR* Dextrose 50 % in Water (Vial) 50 ML VIAL IVP PRN (13:38)
[2020-10-25] MEDS ORDERED: D5% in Water 1,000 ML IVC PRN (13:38)
[2020-10-25] MEDS ORDERED: Dextrose Gel 15 GM/37.5 ML TUBE PO PRN ×2 (13:38)
[2020-10-25] MEDS ORDERED: Furosemide 20 MG/2 ML VIAL IVP ONE (14:33)
[2020-10-25 14:55] LABS: Hemoglobin 6.1 g/dL (11.5-15.4); Mean Corpuscular Hemoglobin 20.5 pg (28.0-33.3); Mean Corpuscular Volume 70.5 fL (83.0-100.0); Mean Platelet Volume 8.5 fL (9.4-12.4); Platelet Count 347 K/mcL (140-400); Red Blood Count 2.98 M/mcL (3.82-4.97); Red Cell Distribution Width 17.9 % (11.5-14.5); White Blood Count 9.7 K/mcL (4.3-11.1)
[2020-10-25 15:04] LABS: Calcium 7.9 mg/dL (8.6-10.3); Potassium 3.3 mEq/L (3.5-5.1)
[2020-10-25 15:07] LABS: % Iron Saturation 3 % (15-50); Iron 12 mcg/dL (50-170); Transferrin 311 mg/dL (203-362)
[2020-10-25 15:26] LABS: Ferritin < 8 ng/mL (10-120)
[2020-10-25] MEDS ORDERED: Iron Sucrose Complex 400 MG in 0.9 % Sodium Chloride 250 ML IVPB ONE (15:29)
[2020-10-25 15:30] LABS: Folate 10.7 ng/mL (3.0-16.0)
[2020-10-25] MEDS ORDERED: 0.9 % Sodium Chloride 250 ML ONE ×2 (15:37→21:58)
[2020-10-25 17:51] LABS: Bacteria,Urine Few per hpf (None-Few); Bilirubin,Urine Negative (Negative); Blood,Urine Trace (Negative); Clarity,Urine Clear (Clear); Color,Urine Light-Yellow (Yellow); Glucose,Urine (UA) Normal (Normal); Ketones,Urine Negative (Negative); Leukocyte Esterase,Urine Small (Negative); Mucus,Urine Few per lpf (None-Few); Nitrite,Urine Negative (Negative); PH,Urine 6.5 pH Units (5.0-8.0); Protein,Urine >=300 mg/dL (Neg-Trace); RBC,Urine 0-3 per hpf (0-3); Specific Gravity,Urine 1.012 (1.010-1.025); Squamous Epithelial Cell,Urine Few per hpf (None-Few); Urobilinogen,Urine Normal (Normal); WBC,Urine 30-50 per hpf (0-3)
[2020-10-25] MEDS: Insulin LISPRO 300 UNITS/3 ML VIAL SUBQ SCH (18:13)
[2020-10-25] MEDS ORDERED: Insulin LISPRO 300 UNITS/3 ML VIAL SUBQ SCH (21:00)
[2020-10-25 23:34] LABS: Hematocrit 24.4 % (35.3-44.9)
[2020-10-25 23:42] LABS: Hemoglobin 7.7 g/dL (11.5-15.4)
[2020-10-26] MEDS ORDERED: carvediloL 6.25 MG TABLET PO SCH (02:00)
[2020-10-26 05:44] LABS: Hemoglobin 8.1 g/dL (11.5-15.4); Mean Corpuscular HGB Conc 31.2 g/dL (31.6-35.5); Mean Corpuscular Hemoglobin 22.9 pg (28.0-33.3); Mean Corpuscular Volume 73.4 fL (83.0-100.0); Mean Platelet Volume 8.6 fL (9.4-12.4); Platelet Count 347 K/mcL (140-400); Red Blood Count 3.54 M/mcL (3.82-4.97); Red Cell Distribution Width 18.9 % (11.5-14.5); White Blood Count 12.9 K/mcL (4.3-11.1)
[2020-10-26 06:03] LABS: BUN/Creatinine Ratio 10 (6-26); Blood Urea Nitrogen 11 mg/dL (6-20); Calcium 8.1 mg/dL (8.6-10.3); Carbon Dioxide 22 mEq/L (23-29); Chloride 109 mEq/L (98-107); Glucose 142 mg/dL (70-105); Osmolality,Calculated 292 (280-300); Potassium 3.1 mEq/L (3.5-5.1); Sodium 140 mEq/L (136-145); eGFR For African Americans > 60 (> 60); eGFR For Non-African Americans 50 (> 60)
[2020-10-26] MEDS ORDERED: Cyanocobalamin (B-12) 1,000 MCG/ML VIAL SQ ONE (07:56)
[2020-10-26] MEDS: Insulin LISPRO 300 UNITS/3 ML VIAL SUBQ SCH ×2 (07:56→11:44)
[2020-10-26] MEDS ORDERED: Iron Sucrose Complex 400 MG in 0.9 % Sodium Chloride 250 ML IVPB ONE (07:56)
[2020-10-26] MEDS ORDERED: amLODIPine 5 MG TABLET PO SCH (09:00)
[2020-10-26 10:20] VITALS: BP 172/80
[2020-10-26] MEDS ORDERED: Furosemide 20 MG TABLET PO SCH (10:30)
== END 2020-10-26 13:36 | disposition home or self-care (01) ==
LOC: SUATTDRO → 3BNU 09:29 → ENDPAV 09:29 → 3BNU 14:11
PROVIDERS: ADMIT Internal Medicine; ATTEND Internal Medicine